=== PATIENT | male | born 1970 | race Caucasian/White ===

== ENCOUNTER 2017-08-30 22:26 | Emergency (ER) | payer MEDICARE, MEDICAID ==
[~2017-08-30] VITALS: Ht 165.1 cm; Wt 110.0 kg
[~2017-08-30 22:26] MED LIST: HYDR-3133 PO; PRED20 PO; Z.0.NO CURRENT MEDS
[2017-08-30 22:28] VITALS: BP 142/81; PULSE 111; RESP 20; TEMP 97.5; O2SAT 99
--- NOTE | 2017-08-31 00:18 | PD ---
HPI Chief Complaint: Fall Time Seen by Provider: 00:10 Travel History International Travel<30 days: No Contact w/Intl Traveler<30days: No Traveled to known affect area: No History of Present Illness HPI 47 y/o male presents after he states he got tripped up on a brick and fell back and injured his back. He is having pain to his low back. He states he also hit his head but did not lose consciousness. He states his head is also hurting some. Quality pain is sharp. Severity is moderate. Pain is worse with movement. He denies other modifying factors. He denies any other concurrent complaints. PFSH Past Medical History Bipolar Disorder: Yes Headaches: Yes Medical other: Yes (SCIZOPHRENIC) Migraines: Yes ?: Not Social History Alcohol Use: No Tobacco Use: No Substance Use: No Allergies-Medications (Allergen,Severity, Reaction): Coded Allergies: No Known Allergies (Verified Allergy, Mild, 10/17/07) Reported Meds & Prescriptions Reported Meds & Active Scripts Active Atarax (Hydroxyzine HCl) 25 Mg Tab 25 Mg PO Q8HPRN Deltasone (Prednisone) 20 Mg Tab 20 Mg PO BID Reported No Current Meds (Miscellaneous Medication) Misc Review of Systems Except as stated in HPI: all other systems reviewed are Neg Physical Exam Narrative General: 47 y/o patient in no apparent distress Skin: warm and dry Eyes: pupils equal NECK: no pain with palpation, nexus criteria negative Cardiovascular: Regular rate and rhythm Respiratory: normal respiratory effort noted, clear to auscultation bilaterally Abdomen: soft, nontender, nondistended Back: No step-offs, midline spine ttp to upper lumbar spine Extremities: no Pain with palpation of main joints Neuro: awake, clear speech, sensation and motor grossly intact Data Data Last Documented VS Vital Signs Date Time Temp Pulse Resp B/P (MAP) Pulse Ox O2 Delivery O2 Flow Rate FiO2 08/30/17 22:28 97.5 111 20 142/81 (101) 99 Room Air Orders Orders Ct Brain W/O Iv Contrast(Rout) (08/31/17 00:13) Ct Lumb Spine W/O Contrast (08/31/17 00:13) Acetamin-Hydrocod 325-5 Mg (Maybee 5-325 (08/31/17 02:00) Ed Discharge Order (08/31/17 01:52) [facility] Medical Decision Making Medical Screen Exam Complete: Yes Emergency Medical Condition: Yes Medical Record Reviewed: Yes (pmh confirmed) Interpretation(s) ct brain no acute ct lumbar spine ?questionable s1 screw fracture, no pain over this site-given copy can follow up outpatient Differential Diagnosis fracture, ich, strain... Narrative Course will check ct imaging and reeval ed workup with possible s1 screw fracture, steady gait, Patient denies any new complaints and states that they are feeling better. Patient happy with care, all questions answered. Patient knows that follow up is incumbent on them and to return to the emergency room immediately if new or worsening symptoms develop. Patient given strict return precautions, vitals reviewed and are normal , agrees to further workup as an outpatient. Diagnosis Primary Impression: Back pain Qualified Codes: M54.5 - Low back pain Additional Impressions: Head injury Qualified Codes: S09.90XA - Unspecified injury of head, initial encounter Fall Qualified Codes: W19.XXXA - Unspecified fall, initial encounter Patient Instructions: General Instructions Additional Instructions: tylenol as needed, follow with your surgeon tommorrow, return as needed Med/Other Pt SpecificInfo: No Change to Meds Disposition: 01 DISCHARGE HOME Condition: Stable Lila Adams MD Aug 31, 2017 00:18
--- NOTE | 2017-08-31 01:20 | RADRPT ---
EXAM DATE/TIME: 08/31/2017 00:54 [facility] COMPARISON: No previous studies available for comparison. INDICATIONS : Trauma, fall. Struck the back of his head. RADIATION DOSE: 56.35 CTDIvol (mGy) MEDICAL HISTORY : None SURGICAL HISTORY : None. ENCOUNTER: Initial ACUITY: 1 day PAIN SCALE: 5/10 LOCATION: cranial TECHNIQUE: Multiple contiguous axial images were obtained of the head. Using automated exposure control and adj ustment of the mA and/or kV according to patient size, radiation dose was kept as low as reasonably a chievable to obtain optimal diagnostic quality images. DICOM format image data is available electro nically for review and comparison. FINDINGS: CEREBRUM: The ventricles are normal. No evidence of midline shift, mass lesion, hemorrhage or acute infarction . No extra-axial fluid collections are seen. POSTERIOR FOSSA: The cerebellum and brainstem are intact. The 4th ventricle is midline. The cerebellopontine angle i s unremarkable. EXTRACRANIAL: There is mild mucoperiosteal thickening within the left maxillary antrum. SKULL: The calvaria is intact. No evidence of skull fracture. CONCLUSION: No acute intracranial abnormality is identified. Flaquito Byrd MD on August 31, 2017 at 1:17 Board Certified Radiologist. This report was verified electronically.
--- NOTE | 2017-08-31 01:27 | RADRPT ---
EXAM DATE/TIME: 08/31/2017 00:56 [facility] COMPARISON: No previous studies available for comparison. INDICATIONS : Trauma, fall. Lower back pain. RADIATION DOSE: 63.33 CTDIvol (mGy) ; Patient body habitus MEDICAL HISTORY : None SURGICAL HISTORY : Fusion, lumbar. ENCOUNTER: Initial ACUITY: 1 day PAIN SCALE: 5/10 LOCATION: Lumbar spine. TECHNIQUE: Volumetric scanning of the lumbar spine was performed. Multiplanar reconstructions in the sagittal, coronal and oblique axial planes were performed. Using automated exposure control and adjustment of the mA and/or kV according to patient size, radiation dose was kept as low as reasonably achievable t o obtain optimal diagnostic quality images. DICOM format image data is available electronically for review and comparison. FINDINGS: VERTEBRAE: Normal vertebral body height. No fracture or compression deformity is identified. There has been a pr ior posterior spinal fixation with partial fusion at L4-L5 and L5-S1. Bilateral pedicular screws are present. There is a questionable abnormality of the left sacral screw questionable for fracture. Ther e are no findings to indicate loosening. ALIGNMENT: No anterolisthesis or retrolisthesis. T12-L1: No disc herniation, canal stenosis, or neural foraminal stenosis. L1-L2: No disc herniation, canal stenosis, or neural foraminal stenosis. L2-L3: There is a diffuse disc bulge. Canal may be mildly narrowed. No significant neural foraminal stenosis appreciated. L3-L4: There is a moderate diffuse disc bulge with facet and ligamentum flavum hypertrophy mildly narrowing the spinal canal and causing mild bilateral neural foraminal stenosis. L4-L5: There is posterior spinal hardware and there has been prior left hemilaminectomy. Posterior osteophyt ic ridging is present. No definite canal stenosis is seen. L5-S1: Posterior hardware is present with signs of a left hemilaminectomy. Posterior osteophytic ridging is present. Canals partially obscured by artifact. Remaining visualized findings demonstrate no acute abnormality. CONCLUSION: 1. Questionable fracture of the left S1 screw. It would be helpful to correlate with prior imaging st udies to assess for change. 2. Degenerative disc disease, as above, with mild spinal canal stenosis at L3-L4. Flaquito Byrd MD on August 31, 2017 at 1:19 Board Certified Radiologist. This report was verified electronically.
[2017-08-31] MEDS ORDERED: ACETAMINOPHEN/HYDROcodone 325 MG/5 MG TAB PO ONE (02:00)
[2017-08-31 03:00] VITALS: RESP 16
[2017-08-31 06:39] VITALS: BP 135/75
== END 2017-08-31 06:46 | disposition home or self-care (01) ==
LOC: NEPE 22:26
DX: M54.5 Low back pain (principal); S09.90XA Unspecified injury of head, initial encounter; Z86.59 Personal history of other mental and behavioral disorders; Z86.69 Personal history of other diseases of the nervous system and sense organs; W01.0XXA Fall on same level from slipping, tripping and stumbling without subsequent striking against object, initial encounter
CPT/HCPCS: 70450; 72131; 99284

== ENCOUNTER 2017-10-03 09:24 | Emergency (ER) | payer MEDICARE, MEDICAID ==
[~2017-10-03] VITALS: Ht 167.6 cm; Wt 115.0 kg
[~2017-10-03 09:24] MED LIST changes: +ABIL20TA5 PO; +BACT800T5 PO; +DIVA250ER PO; +FENO145T2 PO; +FLUO20CA12 PO; +GABA800T PO; +POLY17S PO; +SYMB160A INH; +TAMS5CAP PO
[2017-10-03 09:25] VITALS: BP 146/78; PULSE 88; RESP 18; TEMP 97.9; O2SAT 95
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
--- NOTE | 2017-10-03 09:55 | RADRPT ---
EXAM DATE/TIME: 10/03/2017 09:42 [facility] COMPARISON: CT ABDOMEN & PELVIS W/O CONTRAST, December 14, 2016, 20:36. INDICATIONS : Fell today. Low back pain. MEDICAL HISTORY : None. SURGICAL HISTORY : back surgery 2000 ENCOUNTER: Initial ACUITY: 1 day PAIN SCORE: 5/10 LOCATION: Bilateral lumbar spine FINDINGS: Both pedicle screws are fractured at S1. Pedicle screws at L4 and L5 are intact. Alignment anatomic . CONCLUSION: Pedicle screw is fractured at S1. Anatomic alignment. I have no prior studies for comparison that s how the screws adequately.. Trenton Romano MD FACR on October 03, 2017 at 9:51 Board Certified Radiologist. This report was verified electronically.
[2017-10-03] MEDS ORDERED: ORPHENADRINE INJ 60 MG/2 ML AMP IM ONE (10:15)
[2017-10-03] MEDS ORDERED: KETOROLAC TROMETHAMINE 60 MG/2 ML (IM) VIAL IM ONE (10:15)
== END 2017-10-03 10:37 | disposition home or self-care (01) ==
LOC: NEPK 09:24 → MERGE 09:24 → NEPK 10:37
DX: T84.498A Other mechanical complication of other internal orthopedic devices, implants and grafts, initial encounter (principal); M54.5 Low back pain; J45.909 Unspecified asthma, uncomplicated; J44.9 Chronic obstructive pulmonary disease, unspecified; I10 Essential (primary) hypertension; W01.0XXA Fall on same level from slipping, tripping and stumbling without subsequent striking against object, initial encounter
CPT/HCPCS: 72100; 96372; 99283; J1885; J2360

== ENCOUNTER 2017-10-05 16:57 | Inpatient (IN) | payer MEDICARE, MEDICAID ==
[~2017-10-05] VITALS: Ht 167.6 cm; Wt 109.5 kg
[~2017-10-05 16:57] MED LIST changes: -BACT800T5 PO
[2017-10-05 16:58] VITALS: BP 144/82; PULSE 109; RESP 20; TEMP 98.3; O2SAT 95
[2017-10-05 19:17] VITALS: BP 139/85; PULSE 97; RESP 20; TEMP 98.6; O2SAT 98
[2017-10-05] MEDS ORDERED: DIAZ10TA PO (19:27)
[2017-10-05] MEDS ORDERED: LACT10SO PO (19:27)
[2017-10-05] MEDS ORDERED: SYMB80AE INH (19:27)
[2017-10-05] MEDS ORDERED: SPIRCAP INH (19:27)
[2017-10-05] MEDS ORDERED: ALBUAER3 INH (19:27)
[2017-10-05] MEDS ORDERED: ZOLP10TA3 PO (19:27)
[2017-10-05] MEDS ORDERED: ABIL20TA5 PO (19:27)
[2017-10-05] MEDS ORDERED: DIAZ2TAB PO (19:27)
[2017-10-05] MEDS ORDERED: HALO0.5T PO (19:27)
[2017-10-05] MEDS ORDERED: SODIUM CHLORIDE 0.9% FLUSH 10 ML FLUSH IV FLUSH PRN ×2 (19:30→22:45)
[2017-10-05] MEDS ORDERED: MORPHINE SULFATE 2 MG/ML INJ IV PUSH ONE (19:45)
[2017-10-05] MEDS ORDERED: SODIUM CHLOR 0.9% 1000 ML INJ 1,000 ML IV ONE (19:45)
[2017-10-05] MEDS ORDERED: ONDANSETRON HCL 4 MG/2 ML VIAL IV PUSH ONE (19:45)
[2017-10-05 20:16] LABS: BASOPHIL # 0.1 TH/MM3 (0-0.2); BASOPHIL % 0.4 % (0.0-2.0); EOSINOPHIL # 0.1 TH/MM3 (0-0.4); EOSINOPHIL % 0.8 % (0.0-4.0); HEMATOCRIT 37.3 % (39.0-51.0); HEMOGLOBIN 12.2 GM/DL (13.0-17.0); LYMPH % 11.7 % (9.0-44.0); MEAN CELL VOLUME 88.8 FL (80.0-100.0); MEAN CORPUSCULAR HEMOGLOBIN 29.1 PG (27.0-34.0); MEAN CORPUSCULAR HGB CONC 32.8 % (32.0-36.0); MEAN PLATELET VOLUME 8.7 FL (7.0-11.0); MONO % 6.9 % (0.0-8.0); MONOCYTE # 1.2 TH/MM3 (0-0.9); NEUT % 80.2 % (16.0-70.0); PLATELET COUNT 209 TH/MM3 (150-450); RED CELL DISTRIBUTION WIDTH 13.5 % (11.6-17.2); WHITE BLOOD COUNT 17.5 TH/MM3 (4.0-11.0)
[2017-10-05 20:22] LABS: ALT (GPT) 41 U/L (12-78)
--- NOTE | 2017-10-05 20:22 | RADRPT ---
EXAM DATE/TIME: 10/05/2017 20:05 [facility] COMPARISON: No previous studies available for comparison. INDICATIONS : Patient complains of cough, shortness of breath, and chest pain. MEDICAL HISTORY : Hypertension. SURGICAL HISTORY : Fusion, lumbar. ENCOUNTER: Initial ACUITY: 2 days PAIN SCORE: 2/10 LOCATION: chest FINDINGS: A single view of the chest demonstrates minimal basilar atelectasis. No effusion. No pneumothorax. CONCLUSION: 1. Minimal basilar atelectasis. Jose Alejandro Ramos MD on October 05, 2017 at 20:20 Board Certified Radiologist. This report was verified electronically.
[2017-10-05 20:24] LABS: ALKALINE PHOSPHATASE 34 U/L (45-117); TOTAL BILIRUBIN ADULT 0.4 MG/DL (0.2-1.0); TOTAL PROTEIN 7.5 GM/DL (6.4-8.2)
[2017-10-05 20:35] LABS: ALBUMIN 3.1 GM/DL (3.4-5.0); AST (GOT) 79 U/L (15-37); BICARBONATE 28.9 MEQ/L (21.0-32.0); BLOOD UREA NITROGEN 15 MG/DL (7-18); CALCIUM 8.7 MG/DL (8.5-10.1); CHLORIDE 104 MEQ/L (98-107); GLOMERULAR FILTRATION RATE 81 ML/MIN (>89); GLUCOSE,RANDOM 79 MG/DL (74-106); LIPASE 16 U/L (73-393); SODIUM (NA) 137 MEQ/L (136-145)
--- NOTE | 2017-10-05 20:49 | PD ---
HPI Chief Complaint: GI Complaint Time Seen by Provider: 19:22 Travel History International Travel<30 days: No Contact w/Intl Traveler<30days: No Traveled to known affect area: No History of Present Illness HPI 47-year-old male that presents to the ED for evaluation of right upper quadrant abdominal pain, nausea vomiting and diarrhea. Per patient she's had this for about 2 days now. Per patient he comes from assisted living facility he tells me that there is been multiple sick contacts at the facility. Per patient a lot of patients in that area had been having cough and congestion as well as nausea vomiting and diarrhea. Per patient she's had some bloody diarrhea. Per patient she's been having vomit as well. Per patient most of the pain is in the right upper quadrant. He denies any surgeries to his abdomen recently. He states that he still has a gallbladder. Of note patient is somewhat of a poor historian as he does appear to have some underlying psychiatric illness but he does appear to answer questions of properly at this time. He denies any fevers chills or sweats. He has not seen anybody for this. As far as he knows nobody has been diagnosed with any disease at this time at the facility where he stays. He denies any chest pain or shortness of breath or time with cough. He has been coughing. He states that his pain currently 7 out of 10. He is not taking anything for his pain. He does have allergies to different fruits. PFSH Past Medical History Arthritis: No Asthma: Yes Blood Disorders: No Bipolar Disorder: Yes Anxiety: Yes Depression: Yes (bipolar) Heart Rhythm Problems: No Cancer: No Cardiovascular Problems: Yes High Cholesterol: Yes Chemotherapy: No Chest Pain: Yes Congestive Heart Failure: No COPD: Yes Cerebrovascular Accident: Yes (TIA) Developmental Delay: Yes Diabetes: No Diminished Hearing: No Endocrine: No Gastrointestinal Disorders: No Genitourinary: Yes (RETENTION) Headaches: No Hypertension: Yes Immune Disorder: No Implanted Vascular Access Dvce: Yes Insomnia: Yes Kidney Stones: No Musculoskeletal: Yes Neurologic: Yes Psychiatric: Yes (anxiety, depression, schizophrenia) Reproductive: No Respiratory: Yes (ASTHMA) Integumentary: Yes (DERMATITIS, PRURITIS) Immunizations Current: Yes Migraines: Yes Radiation Therapy: No Renal Failure: No Schizophrenia: Yes Seizures: Yes Sleep Apnea: No Tetanus Vaccination: Unknown Influenza Vaccination: Yes Past Surgical History Abdominal Surgery: No AICD: No Arteriovenous Shunt: No Body Medical Devices: BACK RODS AND SCREWS Cardiac Surgery: No Ear Surgery: No Endocrine Surgery: No Eye Surgery: No Genitourinary Surgery: No Gynecologic Surgery: No Insulin Pump: No Joint Replacement: No Oral Surgery: No Pacemaker: No Thoracic Surgery: No Other Surgery: Yes Social History Alcohol Use: No Tobacco Use: No Substance Use: No Allergies-Medications (Allergen,Severity, Reaction): Coded Allergies: melon (Verified Allergy, Unknown, 10/05/17) Per MAR sent by facility. tomato (Verified Allergy, Unknown, 10/05/17) Per MAR sent by facility. watermelon (Verified Allergy, Unknown, 10/05/17) Per MAR sent by facility. Reported Meds & Prescriptions Reported Meds & Active Scripts Active Flomax (Tamsulosin HCl) 0.4 Mg Cap 0.4 Mg PO BID Polyethylene Glycol 3350 Powder (Polyethylene Glycol) 17 Gm Pow 17 Gm PO DAILY Fluoxetine (Fluoxetine HCl) 20 Mg Capsule 20 Mg PO TID Fenofibrate 145 Mg Tab 145 Mg PO DAILY Depakote ER (Divalproex Sodium) 250 Mg Floridalma 750 Mg PO 3 BID Symbicort Inh (Budesonide/Formoterol Fumarate) 160-4.5 Mcg/Act Aero 2 Puff INH BID Abilify (Aripiprazole) 20 Mg Tab 20 Mg PO DAILY 15 Days Gabapentin 800 Mg Tab 800 Mg PO BID (0800,1600) Reported Proair Hfa 8.5 GM Inh (Albuterol Sulfate) 90 Mcg/Act Aer 2 Puff INH Q4-6H PRN 108 mcg/actuation Zolpidem (Zolpidem Tartrate) 10 Mg Tab 10 Mg PO HS PRN Symbicort Inh (Budesonide/Formoterol Fumarate) 80-4.5 Mcg/Act Aero 2 Puff INH Q12HR Spiriva Handihaler (Tiotropium Inh) 18 Mcg Cap 18 Mcg INH DAILY 1 capsule = 18 mcg Lactulose Liq (Lactulose) 10 Gm/15 Ml Soln 30 Ml PO Q6H Haloperidol 0.5 Mg Tab 0.5 Mg PO TID Diazepam 10 Mg Tab 10 Mg PO HS Diazepam 2 Mg Tab 2 Mg PO BID Abilify (Aripiprazole) 20 Mg Tab 20 Mg PO HS Review of Systems Except as stated in HPI: all other systems reviewed are Neg Physical Exam Narrative GENERAL: SKIN: Warm and dry. HEAD: Atraumatic. Normocephalic. EYES: Pupils equal and round. No scleral icterus. No injection or drainage. ENT: No nasal bleeding or discharge. Mucous membranes pink and moist. Tongue is midline. No uvula deviation. NECK: Trachea midline. No JVD. CARDIOVASCULAR: Regular rate and rhythm. No murmurs, S3, S4. RESPIRATORY: No accessory muscle use. Clear to auscultation. Breath sounds equal bilaterally. GASTROINTESTINAL: Abdomen soft, patient has a possible right upper quadrant pain with deep touch, nondistended. Hepatic and splenic margins not palpable. MUSCULOSKELETAL: Extremities without clubbing, cyanosis, or edema. No obvious deformities. Full range of motion of the upper and lower extremities bilaterally. Pupils pulses bilaterally. NEUROLOGICAL: Awake and alert. No obvious cranial nerve deficits. Motor grossly within normal limits. Five out of 5 muscle strength in the arms and legs. Normal speech. PSYCHIATRIC: Appropriate mood and affect; insight and judgment normal. Data Data Last Documented VS Vital Signs Date Time Temp Pulse Resp B/P (MAP) Pulse Ox O2 Delivery O2 Flow Rate FiO2 10/05/17 19:49 20 10/05/17 19:17 98.6 97 139/85 (103) 98 Room Air Orders Orders Complete Blood Count With Diff (10/05/17 19:23) Comprehensive Metabolic Panel (10/05/17 19:23) Lipase (10/05/17 19:23) Lactic Acid (10/05/17 19:23) Iv Access Insert/Monitor (10/05/17 19:23) Sodium Chloride 0.9% Flush (Ns Flush) (10/05/17 19:30) Influenzae A/B Antigen (10/05/17 19:32) Chest, Single Ap (10/05/17 ) Us Abdomen Gallbladder (10/05/17 ) Morphine Inj (Morphine Inj) (10/05/17 19:45) Ondansetron Inj (Zofran Inj) (10/05/17 19:45) Sodium Chlor 0.9% 1000 Ml Inj (Ns 1000 M (10/05/17 19:45) C Diff Toxin Pcr (10/05/17 19:32) Ct Abd/Pel W Iv Contrast(Rout) (10/05/17 ) Iohexol 350 Inj (Omnipaque 350 Inj) (10/05/17 21:23) Potassium, Serum (K) (10/05/17 21:41) Ampicillin-Sulbactam Inj (Unasyn Inj) (10/05/17 22:30) Admit Order (Ed Use Only) (10/05/17 22:37) Labs Laboratory Tests Test 10/05/17 19:30 10/05/17 22:10 White Blood Count 17.5 TH/MM3 Red Blood Count 4.20 MIL/MM3 Hemoglobin 12.2 GM/DL Hematocrit 37.3 % Mean Corpuscular Volume 88.8 FL Mean Corpuscular Hemoglobin 29.1 PG Mean Corpuscular Hemoglobin Concent 32.8 % Red Cell Distribution Width 13.5 % Platelet Count 209 TH/MM3 Mean Platelet Volume 8.7 FL Neutrophils (%) (Auto) 80.2 % Lymphocytes (%) (Auto) 11.7 % Monocytes (%) (Auto) 6.9 % Eosinophils (%) (Auto) 0.8 % Basophils (%) (Auto) 0.4 % Neutrophils # (Auto) 14.0 TH/MM3 Lymphocytes # (Auto) 2.0 TH/MM3 Monocytes # (Auto) 1.2 TH/MM3 Eosinophils # (Auto) 0.1 TH/MM3 Basophils # (Auto) 0.1 TH/MM3 CBC Comment DIFF FINAL Differential Comment Blood Urea Nitrogen 15 MG/DL Creatinine 1.00 MG/DL Random Glucose 79 MG/DL Total Protein 7.5 GM/DL Albumin 3.1 GM/DL Calcium Level 8.7 MG/DL Alkaline Phosphatase 34 U/L Aspartate Amino Transf (AST/SGOT) 79 U/L Alanine Aminotransferase (ALT/SGPT) 41 U/L Total Bilirubin 0.4 MG/DL Sodium Level 137 MEQ/L Potassium Level 5.9 MEQ/L Chloride Level 104 MEQ/L Carbon Dioxide Level 28.9 MEQ/L Anion Gap 4 MEQ/L Estimat Glomerular Filtration Rate 81 ML/MIN Lactic Acid Level 1.0 mmol/L Lipase 16 U/L [facility] Medical Decision Making Medical Screen Exam Complete: Yes Emergency Medical Condition: Yes Medical Record Reviewed: Yes Interpretation(s) Last Impressions Gall Bladder Ultrasound 10/05/17 0000 Signed Impressions: Service Date/Time: Thursday, October 05, 2017 21:34 - CONCLUSION: 1. Multiple gallstones without biliary ductal dilatation. Mild fatty liver. Jose Alejandro Ramos MD Chest X-Ray 10/05/17 0000 Signed Impressions: Service Date/Time: Thursday, October 05, 2017 20:05 - CONCLUSION: 1. Minimal basilar atelectasis. Jose Alejandro Ramos MD Abdomen/Pelvis CT 10/05/17 0000 Signed Impressions: Service Date/Time: Thursday, October 05, 2017 21:04 - CONCLUSION: 1. No acute findings within the abdomen and pelvis. 2. Patchy airspace disease in the right lung base most characteristic of bronchopneumonia or aspiration. Previous fusion lower lumbar spine across the lumbosacral junction. Jose Alejandro Ramos MD CBC & BMP Diagram 10/05/17 19:30 Total Protein 7.5, Albumin 3.1 L, Calcium Level 8.7, Alkaline Phosphatase 34 L, Aspartate Amino Transf (AST/SGOT) 79 H, Alanine Aminotransferase (ALT/SGPT) 41, Total Bilirubin 0.4 lactic acid WNL flu negative Differential Diagnosis Colitis versus C. difficile versus diarrhea versus gallbladder disease versus acute abdomen versus pancreatitis Narrative Course 47-year-old male that presents to the ED for evaluation of abdominal pain, nausea vomiting and diarrhea. Patient was properly examined and was found to have signs and symptoms of unclear etiology will likely abdominal in nature and possibly infectious. At this time labs and imaging recommended. I asked the patient she clearly was a sample of the stool to check for C. difficile as he comes from a facility. He agrees with this plan. Patient was given IV pain medications and antiemetics. Fluids given. Labs and imaging showed leukocytosis and what appears to be bronchopneumonia versus aspiration pneumonia. Case was discussed in my attending who recommends admission for further evaluation and treatment. Patient was told this and agrees with plan. Case was discussed with Dr. Tyler who agrees with admission. Sepsis Criteria SIRS Criteria (2 or more): Heart rate over 90, WBC > 39917, < 4000 or > 10% bands Sepsis Criteria (SIRS+source): Infect source susp/known Criteria Outcome: Meets sepsis criteria Diagnosis Primary Impression: Pneumonia Qualified Codes: J69.0 - Pneumonitis due to inhalation of food and vomit Additional Impression: Sepsis Qualified Codes: A41.9 - Sepsis, unspecified organism Admitting Information Admitting Physician Requests: Admit Kamran Soto Oct 05, 2017 20:49
[2017-10-05] MEDS ORDERED: IOHEXOL 350 MG/ML 10 ML VIAL (for RAD DIAG) IVCONTRAST ONE (21:23)
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
--- NOTE | 2017-10-05 22:18 | RADRPT ---
EXAM DATE/TIME: 10/05/2017 21:34 [facility] COMPARISON: No previous studies available for comparison. INDICATIONS : Right upper quadrant pain. MEDICAL HISTORY : Hypercholesterolemia. Chronic obstructive pulmonary disease. Glasses. Seizures. Transient ischemic attack. Chest pain. Asthma. Bipolar disorder. Depression. Anxiety. Claustrophobia. SURGICAL HISTORY : Back surgery. [place] filter. ENCOUNTER: Initial ACUITY: 1 day PAIN SCORE: 5/10 LOCATION: Right upper quadrant MEASUREMENTS: LIVER: 16.0 cm length COMMON DUCT: 5 mm RIGHT KIDNEY: 11.7 x 4.3 x 5.9 cm FINDINGS: Multiple gallstones in the gallbladder largest measuring about 6 mm in diameter. No delayed ductal di latation or pericholecystic fluid. Normal flow direction portal vein. Mild fatty liver. Right kidney unremarkable. CONCLUSION: 1. Multiple gallstones without biliary ductal dilatation. Mild fatty liver. Jose Alejandro Ramos MD on October 05, 2017 at 22:14 Board Certified Radiologist. This report was verified electronically.
[2017-10-05] MEDS ORDERED: AMPICILLIN-SULBACTAM INJ 3 GM in SODIUM CHLORIDE 0.9% INJ 100 ML IV ONE (22:30)
[2017-10-05] MEDS ORDERED: LACTULOSE SYRUP 20 GM/30 ML CUP PO PRN (22:45)
[2017-10-05] MEDS ORDERED: MORPHINE SULFATE 2 MG/ML INJ IV PUSH PRN (22:45)
[2017-10-05] MEDS ORDERED: ONDANSETRON HCL 4 MG/2 ML VIAL IVP PRN (22:45)
[2017-10-05] MEDS ORDERED: ACETAMINOPHEN/HYDROcodone 325 MG/5 MG TAB PO PRN (22:45)
[2017-10-05] MEDS: DIAZEPAM 10 MG TAB PO SCH (22:45)
[2017-10-05] MEDS ORDERED: BISACODYL 10 MG SUPP RECTAL PRN (22:45)
[2017-10-05] MEDS ORDERED: Vancomycin Consult Pharmacy 1 EA OTHER SCH (22:45)
[2017-10-05] MEDS ORDERED: SENNOSIDES 8.6 MG TAB PO PRN (22:45)
[2017-10-05] MEDS ORDERED: MAGNESIUM HYDROXIDE SUSP 30 ML CUP PO PRN (22:45)
[2017-10-05] MEDS ORDERED: ZOLPIDEM TARTRATE 10 MG TAB PO PRN (22:45)
--- NOTE | 2017-10-05 22:47 | HHI.HP ---
[facility] Service [facility] Primary Care Physician Hossein Mesa M.D. Admission Diagnosis acute pneumonia, possible aspiration, sepsis Diagnoses: (1) Sepsis Diagnosis: Principal (2) PNA (pneumonia) Diagnosis: Principal (3) Gastroenteritis Diagnosis: Principal (4) Hyperkalemia Diagnosis: Principal Travel History International Travel<30 Days: No Contact w/Intl Traveler <30 Da: No Traveled to Known Affected Are: No History of Present Illness This is a 47-year-old male with PMH of Anxiety, Depression, Bipolar Disorder, COPD, Developmental Delay, h/o TIA and Asthma who presented to the ER with complaints of abdominal pain x2 days. Pt is poor historian, but able to relay that pain is mostly in RUQ, sharp, severe, 8/10, non-radiating. Reports associated nausea, vomiting and diarrhea. No fever, chills or sick contacts. On arrival, BP 144/82, HR 109, O2 sat 95% on RA, Afebrile. WBC 17.5. K+ 5.9. Lactic Acid normal. CXR with minimal basilar atelectasis. Gallbladder US with multiple gallstones, no biliary ductal dilatation. CT Abd/Pelvis w/ no acute abdominal findings, noted to have patchy airspace disease RLL, likely bronchopneumonia or aspiration. S/p Unasyn in ER. Review of Systems Except as stated in HPI: all other systems reviewed are Neg ROS: 14 point review of systems otherwise negative. Past Family Social History Past Medical History PMH: Anxiety, Depression, Bipolar Disorder, COPD, Developmental Delay, h/o TIA and Asthma Past Surgical History PAST SURGICAL HISTORY: Back Surgery Allergies: Coded Allergies: melon (Verified Allergy, Unknown, 10/05/17) Per MAR sent by facility. tomato (Verified Allergy, Unknown, 10/05/17) Per MAR sent by facility. watermelon (Verified Allergy, Unknown, 10/05/17) Per MAR sent by facility. Family History PAST FAMILY HISTORY: Reviewed. No h/o DM or CAD Social History PAST SOCIAL HISTORY: Negative for alcohol, tobacco or drugs. Physical Exam Vital Signs Vital Signs Date Time Temp Pulse Resp B/P (MAP) Pulse Ox O2 Delivery O2 Flow Rate FiO2 10/05/17 19:49 20 10/05/17 19:17 98.6 97 20 139/85 (103) 98 Room Air 10/05/17 16:58 98.3 109 20 144/82 (102) 95 Room Air Physical Exam PE: GENERAL: Middle-aged male in no acute distress. HEENT: PERRLA, EOMI. No scleral icterus or conjunctival pallor. No lid lag or facial droop. CARDIOVASCULAR: Regular rate and rhythm. No obvious murmurs to auscultation. No chest tenderness to palpation. RESPIRATORY: No obvious rhonchi or wheezing. Clear to auscultation. Breath sounds equal bilaterally. GASTROINTESTINAL: Abdomen soft, mild tenderness to palpation RUQ, nondistended. BS normal. MUSCULOSKELETAL: Extremities without clubbing, cyanosis, or edema. No obvious deformities. NEUROLOGICAL: Awake, alert and oriented x4. No focal neurologic deficits. Moving both upper and lower extremities spontaneously. Laboratory Laboratory Tests Test 10/05/17 19:30 10/05/17 22:10 White Blood Count 17.5 Red Blood Count 4.20 Hemoglobin 12.2 Hematocrit 37.3 Mean Corpuscular Volume 88.8 Mean Corpuscular Hemoglobin 29.1 Mean Corpuscular Hemoglobin Concent 32.8 Red Cell Distribution Width 13.5 Platelet Count 209 Mean Platelet Volume 8.7 Neutrophils (%) (Auto) 80.2 Lymphocytes (%) (Auto) 11.7 Monocytes (%) (Auto) 6.9 Eosinophils (%) (Auto) 0.8 Basophils (%) (Auto) 0.4 Neutrophils # (Auto) 14.0 Lymphocytes # (Auto) 2.0 Monocytes # (Auto) 1.2 Eosinophils # (Auto) 0.1 Basophils # (Auto) 0.1 CBC Comment DIFF FINAL Differential Comment Blood Urea Nitrogen 15 Creatinine 1.00 Random Glucose 79 Total Protein 7.5 Albumin 3.1 Calcium Level 8.7 Alkaline Phosphatase 34 Aspartate Amino Transf (AST/SGOT) 79 Alanine Aminotransferase (ALT/SGPT) 41 Total Bilirubin 0.4 Sodium Level 137 Potassium Level 5.9 Chloride Level 104 Carbon Dioxide Level 28.9 Anion Gap 4 Estimat Glomerular Filtration Rate 81 Lactic Acid Level 1.0 Lipase 16 Date/Time Source Procedure Growth Status 1/5/18 19:25 Nasal Washing Influenza Types A,B Antigen ([facility]) - Final NEGATIVE FOR FLU A AND B ANTIGEN.... Complete Result Diagram: 10/05/17192910/05/171929 [place] VTE Risk Assessment [place] VTE Risk Assessment: No/Low Risk (score <= 1) [place]rini Risk Assessment Model Point Value = 1 Point Value = 2 Point Value = 3 Point Value = 5 Age 41-60 Minor surgery BMI > 25 kg/m2 Swollen legs Varicose veins or History of unexplained or recurrent spontaneous Oral contraceptives or hormone replacement Sepsis (< 1 month) Serious lung disease, including pneumonia (< 1 month) Abnormal pulmonary function Acute myocardial infarction Congestive heart failure (< 1 month) History of inflammatory bowel disease Medical patient at bed rest Age 61-74 Arthroscopic surgery Major open surgery (> 45 min) Laparoscopic surgery (> 45 min) Malignancy Confined to bed (> 72 hours) Immobilizing plaster cast Central venous access Age >= 75 History of VTE Family history of VTE Factor V Leiden Prothrombin [id number] Lupus anticoagulant Anticardiolipin antibodies Elevated serum homocysteine Heparin-induced thrombocytopenia Other congenital or acquired thrombophilia Stroke (< 1 month) Elective arthroplasty Hip, pelvis, or leg fracture Acute spinal cord injury (< 1 month) Prophylaxis Regimen Total Risk Factor Score Risk Level Prophylaxis Regimen 0-1 Low Early ambulation 2 Moderate Order ONE of the following: *Sequential Compression Device (SCD) *Heparin 5000 units SQ BID 3-4 Higher Order ONE of the following medications: *Heparin 5000 units SQ TID *Enoxaparin/Lovenox 40 mg SQ daily (WT < 150 kg, CrCl > 30 mL/min) *Enoxaparin/Lovenox 30 mg SQ daily (WT < 150 kg, CrCl > 10-29 mL/min) *Enoxaparin/Lovenox 30 mg SQ BID (WT < 150 kg, CrCl > 30 mL/min) AND/OR *Sequential Compression Device (SCD) 5 or more Highest Order ONE of the following medications: *Heparin 5000 units SQ TID (Preferred with Epidurals) *Enoxaparin/Lovenox 40 mg SQ daily (WT < 150 kg, CrCl > 30 mL/min) *Enoxaparin/Lovenox 30 mg SQ daily (WT < 150 kg, CrCl > 10-29 mL/min) *Enoxaparin/Lovenox 30 mg SQ BID (WT < 150 kg, CrCl > 30 mL/min) AND *Sequential Compression Device (SCD) Assessment and Plan Problem List: (1) Sepsis ICD Code: A41.9 - Sepsis, unspecified organism (2) PNA (pneumonia) ICD Code: J18.9 - Pneumonia, unspecified organism (3) Gastroenteritis ICD Code: K52.9 - Noninfective gastroenteritis and colitis, unspecified (4) Hyperkalemia ICD Code: E87.5 - Hyperkalemia Assessment and Plan A/P: 1. Sepsis: HR 109, WBC 17.5, Source-PNA, s/p Unasyn in ER, will continue w/ IV Abx, check Sputum Cultures. IVF for hydration, repeat labs in am 2. PNA: CT Abd/Pelvis w/ RLL patchy airspace disease likely bronchopneumonia or aspiration, images reviewed by me. S/p IV Abx in ER, will continue w/ IV Abx. DuoNeb prn as needed. 3. Gastroenteritis: Reports RUQ pain in addition to nausea/vomiting/diarrhea. Gallbladder US w/ no acute findings, images reviewed by me. Check C Diff. Analgesics/antiemetics as needed. 4. Hyperkalemia: K+ 5.9, hemolysis noted. Repeat labs to re-evaluate. 5. DVT Prophylaxis: SCD/Teds. 6. Social work for d/c planning as needed. 7. Records/labs/images reviewed by me, case discussed at length w/ ER physician. Physician Certification 2 Midnight Certification Type: Admission for Inpatient Services Order for Inpatient Services The services are ordered in accordance with Medicare regulations or non- Medicare payer requirements, as applicable. In the case of services not specified as inpatient-only, they are appropriately provided as inpatient services in accordance with the 2-midnight benchmark. Estimated LOS (days): 2 days is the estimated time the patient will need to remain in the hospital, assuming treatment plan goals are met and no additional complications. Post-Hospital Plan: Not yet determined Nkechi Tyler MD Oct 05, 2017 22:47
[2017-10-05] MEDS: SODIUM CHLOR 0.9% 1000 ML INJ 1,000 ML IV SCH (23:31)
[2017-10-06] VITALS (12 sets, daily range): BP systolic 100–157; BP diastolic 59–98; PULSE 16–111; RESP 16–21; TEMP 97.9–100.2; O2SAT 90–95
[2017-10-06] MEDS ORDERED: VANCOMYCIN INJ 2,500 MG in SODIUM CHLORID 0.9% 500 ML INJ 500 ML IV ONE (01:00)
[2017-10-06] MEDS: ACETAMINOPHEN 325 MG TAB PO PRN ×2 (05:23→16:57)
[2017-10-06] MEDS: FENOFIBRATE 145 MG TAB PO SCH (09:05)
[2017-10-06] MEDS: GABAPENTIN 400 MG CAP PO SCH ×2 (09:05→21:52)
[2017-10-06] MEDS: DOCUSATE SODIUM 50 MG/SENNA 8.6 MG TAB PO SCH ×2 (09:05→21:52)
[2017-10-06] MEDS: DIVALPROEX SODIUM E.R. 250 MG TAB PO SCH ×2 (09:05→21:53)
[2017-10-06] MEDS: TAMSULOSIN HCL 0.4 MG CAP PO SCH ×2 (09:05→21:52)
[2017-10-06] MEDS: FLUoxetine HCL 20 MG CAP PO SCH ×3 (09:05→16:57)
[2017-10-06] MEDS: DIAZEPAM 2 MG TAB PO SCH ×2 (09:06→22:03)
[2017-10-06] MEDS: SODIUM CHLORIDE 0.9% FLUSH 10 ML FLUSH IV FLUSH SCH ×2 (09:06→21:51)
[2017-10-06] MEDS: CEFEPIME INJ 1,000 MG in SODIUM CHLORIDE 0.9% INJ 100 ML IV SCH ×2 (09:06→21:51)
[2017-10-06] MEDS: HALOPERIDOL 0.5 MG TAB PO SCH ×3 (09:06→16:57)
[2017-10-06] MEDS: BUDESONIDE-FORMOTEROL 160/4.5 MCG INHALER INH SCH ×2 (09:18→21:52)
[2017-10-06] MEDS: TIOTROPIUM BROMIDE 18 MCG INH INH SCH (09:18)
[2017-10-06] MEDS: SODIUM CHLOR 0.9% 1000 ML INJ 1,000 ML IV SCH ×2 (09:30→18:00)
[2017-10-06 10:56] LABS: AUTOMATED NEUTROPHIL # 8.2 TH/MM3 (1.8-7.7); BASOPHIL % 0.1 % (0.0-2.0); EOSINOPHIL # 0.2 TH/MM3 (0-0.4); EOSINOPHIL % 1.6 % (0.0-4.0); HEMATOCRIT 33.9 % (39.0-51.0); LYMPH % 11.6 % (9.0-44.0); LYMPHOCYTE # 1.2 TH/MM3 (1.0-4.8); MEAN CELL VOLUME 89.9 FL (80.0-100.0); MEAN CORPUSCULAR HEMOGLOBIN 29.2 PG (27.0-34.0); MEAN CORPUSCULAR HGB CONC 32.5 % (32.0-36.0); MEAN PLATELET VOLUME 8.2 FL (7.0-11.0); MONO % 8.3 % (0.0-8.0); MONOCYTE # 0.9 TH/MM3 (0-0.9); NEUT % 78.4 % (16.0-70.0); PLATELET COUNT 182 TH/MM3 (150-450); RED BLOOD COUNT 3.77 MIL/MM3 (4.50-5.90); RED CELL DISTRIBUTION WIDTH 13.9 % (11.6-17.2); WHITE BLOOD COUNT 10.4 TH/MM3 (4.0-11.0)
[2017-10-06 11:16] LABS: ALBUMIN 2.8 GM/DL (3.4-5.0); AST (GOT) 31 U/L (15-37); BICARBONATE 29.7 MEQ/L (21.0-32.0); BLOOD UREA NITROGEN 16 MG/DL (7-18); CHLORIDE 106 MEQ/L (98-107); CREATININE 0.87 MG/DL (0.60-1.30); GLOMERULAR FILTRATION RATE 95 ML/MIN (>89); GLUCOSE,RANDOM 76 MG/DL (74-106); SODIUM (NA) 143 MEQ/L (136-145)
[2017-10-06 11:19] LABS: ALKALINE PHOSPHATASE 30 U/L (45-117); ALT (GPT) 28 U/L (12-78); TOTAL BILIRUBIN ADULT 0.3 MG/DL (0.2-1.0); TOTAL PROTEIN 6.4 GM/DL (6.4-8.2)
--- NOTE | 2017-10-06 11:28 | HHI.PR ---
Subjective Remarks Follow-up sepsis/community acquired bacterial pneumonia 10/06/17-patient seen and examined, Tmax 100.2 at 4 PM however currently afebrile. Still complains of shortness of breath. Objective Vitals Vital Signs Date Time Temp Pulse Resp B/P (MAP) Pulse Ox O2 Delivery O2 Flow Rate FiO2 10/06/17 08:01 98.2 105 21 123/59 (80) 95 10/06/17 04:00 100.2 103 16 144/98 (113) 93 10/06/17 00:41 108 10/06/17 00:00 98.8 109 20 143/63 (89) 90 10/05/17 19:49 20 10/05/17 19:17 98.6 97 20 139/85 (103) 98 Room Air 10/05/17 16:58 98.3 109 20 144/82 (102) 95 Room Air Result Diagram: 10/06/17 0953 10/06/17 0953 Imaging Last Impressions Gall Bladder Ultrasound 10/05/17 0000 Signed Impressions: Service Date/Time: Thursday, October 05, 2017 21:34 - CONCLUSION: 1. Multiple gallstones without biliary ductal dilatation. Mild fatty liver. Jose Alejandro Ramos MD Chest X-Ray 10/05/17 0000 Signed Impressions: Service Date/Time: Thursday, October 05, 2017 20:05 - CONCLUSION: 1. Minimal basilar atelectasis. Jose Alejandro Ramos MD Abdomen/Pelvis CT 10/05/17 0000 Signed Impressions: Service Date/Time: Thursday, October 05, 2017 21:04 - CONCLUSION: 1. No acute findings within the abdomen and pelvis. 2. Patchy airspace disease in the right lung base most characteristic of bronchopneumonia or aspiration. Previous fusion lower lumbar spine across the lumbosacral junction. Jose Alejandro Ramos MD Objective Remarks GENERAL: NAD SKIN: Warm and dry. HEAD: Normocephalic. EYES: No scleral icterus. No injection or drainage. NECK: Supple, trachea midline. No JVD or lymphadenopathy. CARDIOVASCULAR: Regular rate and rhythm without murmurs, gallops, or rubs. RESPIRATORY: Breath sounds decreased bilaterally. No accessory muscle use. GASTROINTESTINAL: Abdomen soft, non-tender, nondistended. MUSCULOSKELETAL: No cyanosis, or edema. BACK: Nontender without obvious deformity. No CVA tenderness. A/P Problem List: (1) Sepsis ICD Code: A41.9 - Sepsis, unspecified organism Status: Resolved (2) PNA (pneumonia) ICD Code: J18.9 - Pneumonia, unspecified organism (3) Gastroenteritis ICD Code: K52.9 - Noninfective gastroenteritis and colitis, unspecified (4) Hyperkalemia ICD Code: E87.5 - Hyperkalemia Assessment and Plan 47 year-old man with 1. Sepsis: status post Unasyn/ankle my seen in ER, and currently on cefepime pending culture reports 2. PNA: CT Abd/Pelvis w/ RLL patchy airspace disease likely bronchopneumonia or aspiration. Currently on cefepime IV. DuoNeb prn as needed. 3. Gastroenteritis: Improving Gallbladder US w/ no acute findings. Analgesics /antiemetics as needed. 4. Hyperkalemia: Resolved 5. Cholelithiasis: Outpatient follow-up will general surgery 6. Other chronic medical conditions: Continue outpatient medications Casimiro Fay MD Oct 06, 2017 11:27
[2017-10-06] MEDS: VANCOMYCIN 1,500 MG/NS 500 ML IV SCH ×2 (16:58)
[2017-10-06] MEDS: DIAZEPAM 10 MG TAB PO SCH (21:53)
[2017-10-07] VITALS (8 sets, daily range): BP systolic 108–157; BP diastolic 56–69; PULSE 78–118; RESP 19–22; TEMP 98.3–99.5; O2SAT 91–94
[2017-10-07] MEDS: SODIUM CHLOR 0.9% 1000 ML INJ 1,000 ML IV SCH ×2 (03:13→13:56)
[2017-10-07] MEDS: VANCOMYCIN 1,500 MG/NS 500 ML IV SCH ×4 (05:05→18:10)
--- NOTE | 2017-10-07 06:25 | HHI.PR ---
Addendum to Inpatient Note Addendum Reason: Additional Documentation Additional Information Late entry, received call from bedside RN regarding fall. Patient seen and examined, he states that his right foot gave out on him and his legs buckled, falling to the floor. Fall team came and initiated protocol. Denies hitting his head. Denies any LOC. Vital signs stable post fall. Patient with yellow gown on , status changed to high risk of falls. Encouraged to use call schulte for assistance. Continue to monitor. Jackeline Beckham Oct 07, 2017 06:25
[2017-10-07 07:25] LABS: AUTOMATED NEUTROPHIL # 4.2 TH/MM3 (1.8-7.7); BASOPHIL % 0.2 % (0.0-2.0); EOSINOPHIL # 0.1 TH/MM3 (0-0.4); EOSINOPHIL % 1.6 % (0.0-4.0); HEMATOCRIT 30.5 % (39.0-51.0); HEMOGLOBIN 10.1 GM/DL (13.0-17.0); LYMPH % 21.3 % (9.0-44.0); LYMPHOCYTE # 1.3 TH/MM3 (1.0-4.8); MEAN CORPUSCULAR HEMOGLOBIN 29.7 PG (27.0-34.0); MEAN PLATELET VOLUME 8.3 FL (7.0-11.0); MONO % 9.8 % (0.0-8.0); MONOCYTE # 0.6 TH/MM3 (0-0.9); NEUT % 67.1 % (16.0-70.0); PLATELET COUNT 170 TH/MM3 (150-450); RED BLOOD COUNT 3.39 MIL/MM3 (4.50-5.90); RED CELL DISTRIBUTION WIDTH 13.5 % (11.6-17.2); WHITE BLOOD COUNT 6.3 TH/MM3 (4.0-11.0)
[2017-10-07 07:43] LABS: BICARBONATE 34.3 MEQ/L (21.0-32.0); CALCIUM 7.7 MG/DL (8.5-10.1); CREATININE 0.78 MG/DL (0.60-1.30)
[2017-10-07] MEDS: CEFEPIME INJ 1,000 MG in SODIUM CHLORIDE 0.9% INJ 100 ML IV SCH ×2 (08:52→20:18)
[2017-10-07] MEDS: HALOPERIDOL 0.5 MG TAB PO SCH ×3 (08:57→18:10)
[2017-10-07] MEDS: TAMSULOSIN HCL 0.4 MG CAP PO SCH ×2 (08:58→20:21)
[2017-10-07] MEDS: FENOFIBRATE 145 MG TAB PO SCH (08:58)
[2017-10-07] MEDS: DIVALPROEX SODIUM E.R. 250 MG TAB PO SCH ×2 (08:58→20:20)
[2017-10-07] MEDS: SODIUM CHLORIDE 0.9% FLUSH 10 ML FLUSH IV FLUSH SCH ×2 (08:58→20:21)
[2017-10-07] MEDS: GABAPENTIN 400 MG CAP PO SCH ×2 (08:58→20:20)
[2017-10-07] MEDS: DOCUSATE SODIUM 50 MG/SENNA 8.6 MG TAB PO SCH ×2 (08:58→20:21)
[2017-10-07] MEDS: FLUoxetine HCL 20 MG CAP PO SCH ×3 (08:58→18:10)
[2017-10-07] MEDS: DIAZEPAM 2 MG TAB PO SCH ×2 (08:58→20:21)
[2017-10-07] MEDS: BUDESONIDE-FORMOTEROL 160/4.5 MCG INHALER INH SCH ×2 (09:00→20:21)
[2017-10-07] MEDS: TIOTROPIUM BROMIDE 18 MCG INH INH SCH (09:00)
--- NOTE | 2017-10-07 11:39 | HHI.PR ---
Subjective Remarks Follow-up sepsis/community acquired bacterial pneumonia 10/06/17-patient seen and examined, Tmax 100.2 at 4 PM however currently afebrile. Still complains of shortness of breath. 10/07/17-patient seen and examined, currently afebrile. Overnight patient had one episode of fall. Stable this morning with improvement of respiratory symptoms.. No diarrhea Objective Vitals Vital Signs Date Time Temp Pulse Resp B/P (MAP) Pulse Ox O2 Delivery O2 Flow Rate FiO2 10/07/17 08:01 99.5 95 22 123/56 (78) 91 10/07/17 08:00 Nasal Cannula 5.00 Humidified 10/07/17 04:00 98.9 98 19 157/69 (98) 91 10/07/17 00:16 94 10/06/17 23:39 97.9 98 19 157/69 (98) 91 10/06/17 22:39 97.9 97 17 144/67 (92) 91 10/06/17 20:30 Nasal Cannula 5.00 Humidified 10/06/17 20:05 87 10/06/17 20:00 97.9 85 19 129/84 (99) 95 10/06/17 16:14 Nasal Cannula 5.00 10/06/17 16:01 99.6 101 21 100/60 (73) 93 10/06/17 12:01 99.7 103 20 123/60 (81) 93 10/06/17 12:00 Nasal Cannula 5.00 Humidified 10/06/17 12:00 111 I/O 10/06/17 10/06/17 10/06/17 10/07/17 10/07/17 10/07/17 07:00 15:00 23:00 07:00 15:00 23:00 Intake Total 597 ml 240 ml Output Total 2000 ml Balance 597 ml -1760 ml Intake Oral 480 ml 240 ml IV Total 117 ml Output Urine Total 2000 ml # Voids 3 3 # Bowel Movements 0 Result Diagram: 10/07/1761910/07/17619 Imaging Last Impressions Gall Bladder Ultrasound 10/05/17 0000 Signed Impressions: Service Date/Time: Thursday, October 05, 2017 21:34 - CONCLUSION: 1. Multiple gallstones without biliary ductal dilatation. Mild fatty liver. Jose Alejandro Ramos MD Chest X-Ray 10/05/17 0000 Signed Impressions: Service Date/Time: Thursday, October 05, 2017 20:05 - CONCLUSION: 1. Minimal basilar atelectasis. Jose Alejandro Ramos MD Abdomen/Pelvis CT 10/05/17 0000 Signed Impressions: Service Date/Time: Thursday, October 05, 2017 21:04 - CONCLUSION: 1. No acute findings within the abdomen and pelvis. 2. Patchy airspace disease in the right lung base most characteristic of bronchopneumonia or aspiration. Previous fusion lower lumbar spine across the lumbosacral junction. Jose Alejandro Ramos MD Objective Remarks GENERAL: NAD SKIN: Warm and dry. HEAD: Normocephalic. EYES: No scleral icterus. No injection or drainage. NECK: Supple, trachea midline. No JVD or lymphadenopathy. CARDIOVASCULAR: Regular rate and rhythm without murmurs, gallops, or rubs. RESPIRATORY: Breath sounds decreased bilaterally. No accessory muscle use. GASTROINTESTINAL: Abdomen soft, non-tender, nondistended. MUSCULOSKELETAL: No cyanosis, or edema. BACK: Nontender without obvious deformity. No CVA tenderness. A/P Problem List: (1) Sepsis ICD Code: A41.9 - Sepsis, unspecified organism Status: Resolved (2) PNA (pneumonia) ICD Code: J18.9 - Pneumonia, unspecified organism (3) Gastroenteritis ICD Code: K52.9 - Noninfective gastroenteritis and colitis, unspecified (4) Hyperkalemia ICD Code: E87.5 - Hyperkalemia Assessment and Plan 47 year-old man with 1. Sepsis: Resolved and currently on cefepime pending culture reports 2. PNA: CT Abd/Pelvis w/ RLL patchy airspace disease likely bronchopneumonia or aspiration. Currently on cefepime IV. DuoNeb prn as needed. 3. Gastroenteritis: Improved and Gallbladder US w/ no acute findings. Analgesics/antiemetics as needed. DC C. difficile PCR 4. Hyperkalemia: Resolved 5. Cholelithiasis: Outpatient follow-up will general surgery 6. Other chronic medical conditions: Continue outpatient medications 7. Fall: PT consult to treat. Fall precautions Discharge Planning Likely discharge 10/08/17 Casimiro Fay MD Oct 07, 2017 11:39
[2017-10-07] MEDS ORDERED: PHARMACY ORDERED LAB ONE ×2 (17:45→19:00)
[2017-10-07] MEDS: DIAZEPAM 10 MG TAB PO SCH (20:21)
[2017-10-07] MEDS: VANCOMYCIN INJ 2,000 MG in SODIUM CHLORID 0.9% 500 ML INJ 500 ML IV SCH (23:00)
[2017-10-08] VITALS (13 sets, daily range): BP systolic 105–136; BP diastolic 55–73; PULSE 63–88; RESP 20–23; TEMP 97.5–100.3; O2SAT 91–99
[2017-10-08] MEDS: VANCOMYCIN INJ 1,750 MG in SODIUM CHLORID 0.9% 500 ML INJ 500 ML IV SCH ×3 (01:06→18:00)
[2017-10-08] MEDS: SODIUM CHLOR 0.9% 1000 ML INJ 1,000 ML IV SCH ×2 (01:11→21:42)
[2017-10-08] MEDS: BUDESONIDE-FORMOTEROL 160/4.5 MCG INHALER INH SCH ×2 (09:00→21:42)
[2017-10-08] MEDS: CEFEPIME INJ 1,000 MG in SODIUM CHLORIDE 0.9% INJ 100 ML IV SCH ×2 (09:00→21:42)
[2017-10-08] MEDS: TIOTROPIUM BROMIDE 18 MCG INH INH SCH (09:00)
[2017-10-08] MEDS: TAMSULOSIN HCL 0.4 MG CAP PO SCH ×2 (09:00→21:41)
[2017-10-08] MEDS: SODIUM CHLORIDE 0.9% FLUSH 10 ML FLUSH IV FLUSH SCH ×2 (09:00→21:41)
[2017-10-08] MEDS: DIAZEPAM 2 MG TAB PO SCH (09:00)
[2017-10-08] MEDS: FLUoxetine HCL 20 MG CAP PO SCH ×3 (09:00→18:00)
[2017-10-08] MEDS: GABAPENTIN 400 MG CAP PO SCH ×2 (09:00→21:41)
[2017-10-08] MEDS: DIVALPROEX SODIUM E.R. 250 MG TAB PO SCH ×2 (09:00→21:41)
[2017-10-08] MEDS: DOCUSATE SODIUM 50 MG/SENNA 8.6 MG TAB PO SCH ×2 (09:00→21:41)
[2017-10-08] MEDS: HALOPERIDOL 0.5 MG TAB PO SCH ×2 (09:00→13:00)
[2017-10-08] MEDS: FENOFIBRATE 145 MG TAB PO SCH (09:00)
[2017-10-08] MEDS ORDERED: DIAZ2 PO (09:35)
[2017-10-08] MEDS ORDERED: AMBI10TA PO (09:35)
[2017-10-08] MEDS ORDERED: AZIT500T2 PO (09:35)
[2017-10-08] MEDS ORDERED: DIAZ10 PO (09:35)
--- NOTE | 2017-10-08 09:38 | HHI.PR ---
Subjective Remarks Follow-up sepsis/community acquired bacterial pneumonia 10/06/17-patient seen and examined, Tmax 100.2 at 4 PM however currently afebrile. Still complains of shortness of breath. 10/07/17-patient seen and examined, currently afebrile. Overnight patient had one episode of fall. Stable this morning with improvement of respiratory symptoms.. No diarrhea 10/08/17-patient seen and examined, Patient had episode of oxygen desaturation overnight for which a simple mask was placed Objective Vitals Vital Signs Date Time Temp Pulse Resp B/P (MAP) Pulse Ox O2 Delivery O2 Flow Rate FiO2 10/08/17 08:02 99.2 82 20 105/55 (72) 94 10/08/17 04:00 100.3 83 22 119/63 (81) 96 10/08/17 04:00 Simple Mask 6.00 10/08/17 03:44 84 10/08/17 02:00 98.6 88 22 136/58 (84) 95 10/08/17 00:23 93 Simple Mask 6.00 10/08/17 00:00 Simple Mask 6.00 10/07/17 23:40 118 10/07/17 20:00 80 10/07/17 20:00 Nasal Cannula 5.00 Humidified 10/07/17 20:00 98.3 78 20 108/64 (79) 93 10/07/17 16:01 98.6 89 21 149/68 (95) 92 10/07/17 15:32 92 Nasal Cannula 5.00 10/07/17 12:01 98.9 83 21 125/68 (87) 94 I/O 10/07/17 10/07/17 10/07/17 10/08/17 10/08/17 10/08/17 06:59 14:59 22:59 06:59 14:59 22:59 Intake Total 240 ml 930 ml Output Total 2000 ml 200 ml Balance -1760 ml 930 ml -200 ml Intake Oral 240 ml 380 ml IV Total 550 ml Output Urine Total 2000 ml 200 ml # Voids 3 1 # Bowel Movements 0 1 Result Diagram: 10/07/17 0620 10/07/17 0620 Imaging Last Impressions Gall Bladder Ultrasound 10/05/17 0000 Signed Impressions: Service Date/Time: Thursday, October 05, 2017 21:34 - CONCLUSION: 1. Multiple gallstones without biliary ductal dilatation. Mild fatty liver. Jose Alejandro Ramos MD Chest X-Ray 10/05/17 0000 Signed Impressions: Service Date/Time: Thursday, October 05, 2017 20:05 - CONCLUSION: 1. Minimal basilar atelectasis. Jose Alejandro Ramos MD Abdomen/Pelvis CT 10/05/17 0000 Signed Impressions: Service Date/Time: Thursday, October 05, 2017 21:04 - CONCLUSION: 1. No acute findings within the abdomen and pelvis. 2. Patchy airspace disease in the right lung base most characteristic of bronchopneumonia or aspiration. Previous fusion lower lumbar spine across the lumbosacral junction. Jose Alejandro Ramos MD Objective Remarks GENERAL: NAD SKIN: Warm and dry. HEAD: Normocephalic. EYES: No scleral icterus. No injection or drainage. NECK: Supple, trachea midline. No JVD or lymphadenopathy. CARDIOVASCULAR: Regular rate and rhythm without murmurs, gallops, or rubs. RESPIRATORY: Breath sounds decreased bilaterally. No accessory muscle use. GASTROINTESTINAL: Abdomen soft, non-tender, nondistended. MUSCULOSKELETAL: No cyanosis, or edema. BACK: Nontender without obvious deformity. No CVA tenderness. Procedures none A/P Problem List: (1) Sepsis ICD Code: A41.9 - Sepsis, unspecified organism Status: Resolved (2) Gastroenteritis ICD Code: K52.9 - Noninfective gastroenteritis and colitis, unspecified (3) Hyperkalemia ICD Code: E87.5 - Hyperkalemia Assessment and Plan 47 year-old man with 1. Sepsis: Resolved a 2. PNA: CT Abd/Pelvis w/ RLL patchy airspace disease likely bronchopneumonia or aspiration. Currently on cefepime IV. DuoNeb prn as needed. Discharged home on azithromycin by mouth. 2/2 episode of acute respiratory failure with hypoxemia, walk test will be performed prior to discharge 3. Gastroenteritis: Improved and Gallbladder US w/ no acute findings. Analgesics/antiemetics as needed. 4. Hyperkalemia: Resolved 5. Cholelithiasis: Outpatient follow-up will general surgery 6. Other chronic medical conditions: Continue outpatient medications 7. Fall: PT consult to treat. Fall precautions Discharge Planning Likely discharge 10/08/17 Casimiro Fay MD Oct 08, 2017 09:38
--- NOTE | 2017-10-08 09:41 | HHI.DS ---
Discharge Summary Admission Date Oct 05, 2017 at 22:39 Discharge Date: Oct 08, 2017 Admitting Diagnosis acute pneumonia, possible aspiration, sepsis (1) Sepsis ICD Code: A41.9 - Sepsis, unspecified organism Status: Resolved (2) Gastroenteritis ICD Code: K52.9 - Noninfective gastroenteritis and colitis, unspecified (3) Hyperkalemia ICD Code: E87.5 - Hyperkalemia Procedures none Brief History - From Admission This is a 47-year-old male with PMH of Anxiety, Depression, Bipolar Disorder, COPD, Developmental Delay, h/o TIA and Asthma who presented to the ER with complaints of abdominal pain x2 days. Pt is poor historian, but able to relay that pain is mostly in RUQ, sharp, severe, 8/10, non-radiating. Reports associated nausea, vomiting and diarrhea. No fever, chills or sick contacts. On arrival, BP 144/82, HR 109, O2 sat 95% on RA, Afebrile. WBC 17.5. K+ 5.9. Lactic Acid normal. CXR with minimal basilar atelectasis. Gallbladder US with multiple gallstones, no biliary ductal dilatation. CT Abd/Pelvis w/ no acute abdominal findings, noted to have patchy airspace disease RLL, likely bronchopneumonia or aspiration. S/p Unasyn in ER. CBC/BMP: 10/07/17 0620 10/07/17 0620 Significant Findings Laboratory Tests Test 10/05/17 19:30 10/05/17 22:10 10/06/17 09:53 10/07/17 06:20 White Blood Count 17.5 TH/MM3 (4.0-11.0) Red Blood Count 4.20 MIL/MM3 (4.50-5.90) 3.77 MIL/MM3 (4.50-5.90) 3.39 MIL/MM3 (4.50-5.90) Hemoglobin 12.2 GM/DL (13.0-17.0) 11.0 GM/DL (13.0-17.0) 10.1 GM/DL (13.0-17.0) Hematocrit 37.3 % (39.0-51.0) 33.9 % (39.0-51.0) 30.5 % (39.0-51.0) Neutrophils (%) (Auto) 80.2 % (16.0-70.0) 78.4 % (16.0-70.0) Neutrophils # (Auto) 14.0 TH/MM3 (1.8-7.7) 8.2 TH/MM3 (1.8-7.7) Monocytes # (Auto) 1.2 TH/MM3 (0-0.9) Albumin 3.1 GM/DL (3.4-5.0) 2.8 GM/DL (3.4-5.0) Alkaline Phosphatase 34 U/L (45-117) 30 U/L (45-117) Aspartate Amino Transf (AST/SGOT) 79 U/L (15-37) Potassium Level 5.9 MEQ/L (3.5-5.1) Anion Gap 4 MEQ/L (5-15) 3 MEQ/L (5-15) Estimat Glomerular Filtration Rate 81 ML/MIN (>89) Lipase 16 U/L (73-393) Monocytes (%) (Auto) 8.3 % (0.0-8.0) 9.8 % (0.0-8.0) Calcium Level 8.0 MG/DL (8.5-10.1) 7.7 MG/DL (8.5-10.1) Carbon Dioxide Level 34.3 MEQ/L (21.0-32.0) Test 10/07/17 18:00 Imaging Last Impressions Gall Bladder Ultrasound 10/05/17 0000 Signed Impressions: Service Date/Time: Thursday, October 05, 2017 21:34 - CONCLUSION: 1. Multiple gallstones without biliary ductal dilatation. Mild fatty liver. Jose Alejandro Ramos MD Chest X-Ray 10/05/17 0000 Signed Impressions: Service Date/Time: Thursday, October 05, 2017 20:05 - CONCLUSION: 1. Minimal basilar atelectasis. Jose Alejandro Ramos MD Abdomen/Pelvis CT 10/05/17 0000 Signed Impressions: Service Date/Time: Thursday, October 05, 2017 21:04 - CONCLUSION: 1. No acute findings within the abdomen and pelvis. 2. Patchy airspace disease in the right lung base most characteristic of bronchopneumonia or aspiration. Previous fusion lower lumbar spine across the lumbosacral junction. Jose Alejandro Ramos MD PE at Discharge GENERAL: NAD SKIN: Warm and dry. HEAD: Normocephalic. EYES: No scleral icterus. No injection or drainage. NECK: Supple, trachea midline. No JVD or lymphadenopathy. CARDIOVASCULAR: Regular rate and rhythm without murmurs, gallops, or rubs. RESPIRATORY: Breath sounds decreased bilaterally. No accessory muscle use. GASTROINTESTINAL: Abdomen soft, non-tender, nondistended. MUSCULOSKELETAL: No cyanosis, or edema. BACK: Nontender without obvious deformity. No CVA tenderness. Hospital Course Patient admitted secondary to sepsis due to bilateral pneumonia for which he was treated with IV antibiotics. He'll be discharged on by mouth azithromycin 500 daily 5 days. This was performed prior to discharge. Patient was continued on his treatment for other chronic medical conditions. PT was consulted. DVT and GI prophylaxis were provided. Vitals remained stable prior to discharge. Pt Condition on Discharge: Stable Discharge Disposition: ACLF/INTERMEDIATE Discharge Time: > 30 minutes Discharge Instructions DIET: Follow Instructions for: Heart Healthy Diet Activities you can perform: Regular-No Restrictions Follow up Referrals: PCP Follow-up - 2-3 Days New Medications: Azithromycin (Azithromycin) 500 Mg Tab 500 MG PO DAILY for Infection, #5 TAB 0 Refills Diazepam (Valium) 2 Mg Tab 2 MG PO BID for Control Mood Swing, #10 TAB Diazepam (Valium) 10 Mg Tab 10 MG PO HS for Control Mood Swing, #10 TAB Zolpidem (Ambien) 10 Mg Tab 10 MG PO HS PRN for INSOMNIA, #10 TAB Continued Medications: Albuterol 8.5 GM Inh (Proair Hfa 8.5 GM Inh) 90 Mcg/Act Aer 2 PUFF INH Q4-6H PRN for SHORTNESS OF BREATH, #1 INHALER 0 Refills 108 mcg/actuation Aripiprazole (Abilify) 20 Mg Tab 20 MG PO DAILY for Mental Health for 15 Days, TAB 1 Refill Aripiprazole (Abilify) 20 Mg Tab 20 MG PO HS, #30 TAB 0 Refills Budesonide-Formoterol Inh (Symbicort Inh) 160-4.5 Mcg/Act Aero 2 PUFF INH BID for health, #1 BOTTLE 0 Refills Divalproex ER (Depakote ER) 250 Mg [place] 750 MG PO 3 bid for health, #180 TAB 0 Refills Fenofibrate (Fenofibrate) 145 Mg Tab 145 MG PO DAILY for health, #30 TAB 0 Refills Fluoxetine (Fluoxetine) 20 Mg Capsule 20 MG PO TID for health, #90 CAP 0 Refills Gabapentin (Gabapentin) 800 Mg Tab 800 MG PO BID (0800,1600), #60 TAB 0 Refills Haloperidol (Haloperidol) 0.5 Mg Tab 0.5 MG PO TID, TAB 0 Refills Lactulose Liq (Lactulose Liq) 10 Gm/15 Ml Soln 30 ML PO Q6H, ML 0 Refills Miscellaneous (No Current Meds) Misc 0 Refills Polyethylene Glycol 3350 Powder (Polyethylene Glycol 3350 Powder) 17 Gm Pow 17 GM PO DAILY for health, #1 BOX 0 Refills Tamsulosin (Flomax) 0.4 Mg Cap 0.4 MG PO BID for health, #60 CAP 0 Refills Tiotropium Inh (Spiriva Handihaler) 18 Mcg Cap 18 MCG INH DAILY for COPD, #30 CAP 0 Refills 1 capsule = 18 mcg Discontinued Medications: Budesonide-Formoterol Inh (Symbicort Inh) 80-4.5 Mcg/Act Aero 2 PUFF INH Q12HR for Asthma Management, #1 INHALER 0 Refills Diazepam (Diazepam) 2 Mg Tab 2 MG PO BID, TAB 0 Refills Diazepam (Diazepam) 10 Mg Tab 10 MG PO HS, TAB 0 Refills Hydroxyzine Hcl (Atarax) 25 Mg Tab 25 MG PO Q8HPRN, #10 0 Refills Prednisone (Deltasone) 20 Mg Tab 20 MG PO BID, #10 0 Refills Zolpidem (Zolpidem) 10 Mg Tab 10 MG PO HS PRN for INSOMNIA, TAB 0 Refills Casimiro Fay MD Oct 08, 2017 09:41
[2017-10-08] MEDS ORDERED: PHARMACY ORDERED LAB ONE (17:45)
[2017-10-08] MEDS: VANCOMYCIN INJ 2,000 MG in SODIUM CHLORID 0.9% 500 ML INJ 500 ML IV SCH (23:00)
[2017-10-09] VITALS (11 sets, daily range): BP systolic 134–148; BP diastolic 70–82; PULSE 70–88; RESP 20–24; TEMP 97.1–98.7; O2SAT 92–100
[2017-10-09] MEDS: SODIUM CHLOR 0.9% 1000 ML INJ 1,000 ML IV SCH ×2 (06:43→13:38)
[2017-10-09] MEDS: CEFEPIME INJ 1,000 MG in SODIUM CHLORIDE 0.9% INJ 100 ML IV SCH ×2 (09:13→20:39)
[2017-10-09] MEDS: FLUoxetine HCL 20 MG CAP PO SCH ×3 (09:14→17:31)
[2017-10-09] MEDS: TIOTROPIUM BROMIDE 18 MCG INH INH SCH (09:14)
[2017-10-09] MEDS: TAMSULOSIN HCL 0.4 MG CAP PO SCH ×2 (09:14→20:39)
[2017-10-09] MEDS: BUDESONIDE-FORMOTEROL 160/4.5 MCG INHALER INH SCH ×2 (09:14→20:39)
[2017-10-09] MEDS: DIVALPROEX SODIUM E.R. 250 MG TAB PO SCH ×2 (09:15→20:39)
[2017-10-09] MEDS: FENOFIBRATE 145 MG TAB PO SCH (09:15)
[2017-10-09] MEDS: SODIUM CHLORIDE 0.9% FLUSH 10 ML FLUSH IV FLUSH SCH ×2 (09:15→20:39)
[2017-10-09] MEDS: GABAPENTIN 400 MG CAP PO SCH ×2 (09:15→20:39)
[2017-10-09] MEDS: DOCUSATE SODIUM 50 MG/SENNA 8.6 MG TAB PO SCH ×2 (09:15→20:40)
[2017-10-09] MEDS: VANCOMYCIN INJ 2,000 MG in SODIUM CHLORID 0.9% 500 ML INJ 500 ML IV SCH ×2 (10:11→22:09)
--- NOTE | 2017-10-09 11:54 | HHI.PR ---
Subjective Remarks Follow-up sepsis/community acquired bacterial pneumonia 10/06/17-patient seen and examined, Tmax 100.2 at 4 PM however currently afebrile. Still complains of shortness of breath. 10/07/17-patient seen and examined, currently afebrile. Overnight patient had one episode of fall. Stable this morning with improvement of respiratory symptoms.. No diarrhea 10/08/17-patient seen and examined, Patient had episode of oxygen desaturation overnight for which a simple mask was placed 10/09/17-patient seen and examined,Although improved today, patient is still lethargic however he is able to follow command and requiring simple mask oxygen. Discharge was held yesterday Objective Vitals Vital Signs Date Time Temp Pulse Resp B/P (MAP) Pulse Ox O2 Delivery O2 Flow Rate FiO2 10/09/17 08:11 97.6 75 20 148/79 (102) 94 10/09/17 08:00 75 10/09/17 04:23 74 10/09/17 04:00 97.1 72 20 141/76 (97) 98 10/09/17 04:00 Simple Mask 6.00 10/09/17 00:00 Simple Mask 6.00 10/09/17 00:00 98.4 70 20 142/70 (94) 100 10/08/17 23:56 63 10/08/17 21:30 64 10/08/17 20:00 Simple Mask 6.00 10/08/17 20:00 97.9 66 20 127/68 (87) 99 10/08/17 16:17 97.5 77 23 130/73 (92) 91 10/08/17 12:24 98.3 75 20 130/73 (92) 93 10/08/17 12:00 78 I/O 10/08/17 10/08/17 10/08/17 10/09/17 10/09/17 10/09/17 06:59 14:59 22:59 06:59 14:59 22:59 Intake Total 547 ml 1237 ml Output Total 200 ml 1100 ml Balance -200 ml 547 ml 137 ml Intake Oral 120 ml 360 ml IV Total 427 ml 877 ml Output Urine Total 200 ml 1100 ml # Voids 2 1 # Bowel Movements 1 0 0 Result Diagram: 10/07/1761910/07/17619 Objective Remarks GENERAL: NAD and lethargic SKIN: Warm and dry. HEAD: Normocephalic. EYES: No scleral icterus. No injection or drainage. NECK: Supple, trachea midline. No JVD or lymphadenopathy. CARDIOVASCULAR: Regular rate and rhythm without murmurs, gallops, or rubs. RESPIRATORY: Breath sounds decreased bilaterally. No accessory muscle use. GASTROINTESTINAL: Abdomen soft, non-tender, nondistended. MUSCULOSKELETAL: No cyanosis, or edema. BACK: Nontender without obvious deformity. No CVA tenderness. Procedures none A/P Problem List: (1) Sepsis ICD Code: A41.9 - Sepsis, unspecified organism Status: Resolved (2) Gastroenteritis ICD Code: K52.9 - Noninfective gastroenteritis and colitis, unspecified (3) Hyperkalemia ICD Code: E87.5 - Hyperkalemia Assessment and Plan 47 year-old man with 1. Sepsis: Resolved 2. PNA: CT Abd/Pelvis w/ RLL patchy airspace disease likely bronchopneumonia or aspiration. Currently on cefepime IV. DuoNeb prn as needed. Discharged home on azithromycin by mouth. 2/2 episode of acute respiratory failure with hypoxemia, walk test will be performed prior to discharge. Check ABG this AM to r/o CO2 Narcosis 3. Gastroenteritis: Improved and Gallbladder US w/ no acute findings. Analgesics/antiemetics as needed. 4. Hyperkalemia: Resolved 5. Cholelithiasis: Outpatient follow-up will general surgery 6. Other chronic medical conditions: Continue outpatient medications 7. 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
[2017-10-10] VITALS (21 sets, daily range): BP systolic 126–157; BP diastolic 64–85; PULSE 48–70; RESP 20–24; TEMP 97.6–98.7; O2SAT 94–97
[2017-10-10] MEDS: SODIUM CHLOR 0.9% 1000 ML INJ 1,000 ML IV SCH (02:56)
[2017-10-10] MEDS: RESP: ALBUTEROL 2.5 MG/IPRATROPIUM 0.5 MG NEB (PRN) NEB (05:58)
[2017-10-10] MEDS: GABAPENTIN 400 MG CAP PO SCH ×3 (09:00→21:30)
[2017-10-10] MEDS: SODIUM CHLORIDE 0.9% FLUSH 10 ML FLUSH IV FLUSH SCH ×3 (09:00→21:29)
[2017-10-10] MEDS: DOCUSATE SODIUM 50 MG/SENNA 8.6 MG TAB PO SCH ×3 (09:00→21:30)
[2017-10-10] MEDS: CEFEPIME INJ 1,000 MG in SODIUM CHLORIDE 0.9% INJ 100 ML IV SCH ×3 (09:00→21:29)
[2017-10-10] MEDS: FLUoxetine HCL 20 MG CAP PO SCH ×4 (09:00→17:09)
[2017-10-10] MEDS: BUDESONIDE-FORMOTEROL 160/4.5 MCG INHALER INH SCH ×3 (09:00→21:00)
[2017-10-10] MEDS: DIVALPROEX SODIUM E.R. 250 MG TAB PO SCH ×3 (09:00→21:45)
[2017-10-10] MEDS: FENOFIBRATE 145 MG TAB PO SCH ×2 (09:00→09:28)
[2017-10-10] MEDS: TAMSULOSIN HCL 0.4 MG CAP PO SCH ×3 (09:00→21:30)
[2017-10-10] MEDS: TIOTROPIUM BROMIDE 18 MCG INH INH SCH ×2 (09:00→09:29)
[2017-10-10] MEDS ORDERED: PHARMACY ORDERED LAB ONE (09:45)
[2017-10-10] MEDS: VANCOMYCIN INJ 2,000 MG in SODIUM CHLORID 0.9% 500 ML INJ 500 ML IV SCH ×2 (10:20→23:12)
[2017-10-10 10:35] LABS: CREATININE 0.46 MG/DL (0.60-1.30)
--- NOTE | 2017-10-10 10:48 | HHI.PR ---
Subjective Remarks Follow-up sepsis/community acquired bacterial pneumonia 10/06/17-patient seen and examined, Tmax 100.2 at 4 PM however currently afebrile. Still complains of shortness of breath. 10/07/17-patient seen and examined, currently afebrile. Overnight patient had one episode of fall. Stable this morning with improvement of respiratory symptoms.. No diarrhea 10/08/17-patient seen and examined, Patient had episode of oxygen desaturation overnight for which a simple mask was placed 10/09/17-patient seen and examined,Although improved today, patient is still lethargic however he is able to follow command and requiring simple mask oxygen. Discharge was held yesterday 10/10/17-patient seen and examined, Patient with CO2 narcosis requiring BIPAP. Alert and oriented x 2 Objective Vitals Vital Signs Date Time Temp Pulse Resp B/P (MAP) Pulse Ox O2 Delivery O2 Flow Rate FiO2 10/10/17 10:03 95 BiPAP 35 10/10/17 10:00 95 35 10/10/17 08:11 97.6 65 20 144/85 (104) 96 10/10/17 04:18 97 35 10/10/17 04:00 58 10/10/17 04:00 98.7 60 20 128/64 (85) 97 10/10/17 01:30 Bi-Pap 10/10/17 01:20 96 35 10/10/17 00:00 70 10/10/17 00:00 98.4 70 20 157/67 (97) 95 10/09/17 21:26 98 Simple Mask 6.00 10/09/17 20:00 98.7 75 20 139/72 (94) 98 10/09/17 20:00 84 10/09/17 20:00 97 Simple Mask 6.00 10/09/17 16:11 98.2 71 23 144/78 (100) 98 10/09/17 16:00 98 Simple Mask 6.00 10/09/17 15:55 88 10/09/17 12:03 98.1 79 24 134/82 (99) 92 10/09/17 12:00 88 10/09/17 12:00 92 Simple Mask 6.00 I/O 10/09/17 10/09/17 10/09/17 10/10/17 10/10/17 10/10/17 07:00 15:00 23:00 07:00 15:00 23:00 Intake Total 1237 ml 100 ml 1506 ml Output Total 1100 ml Balance 137 ml 100 ml 1506 ml Intake Oral 360 ml 0 ml IV Total 877 ml 100 ml 1506 ml Output Urine Total 1100 ml # Voids 1 1 # Bowel Movements 0 0 Result Diagram: 10/07/17 0620 10/10/17 0815 Imaging Last Impressions Gall Bladder Ultrasound 10/05/17 0000 Signed Impressions: Service Date/Time: Thursday, October 05, 2017 21:34 - CONCLUSION: 1. Multiple gallstones without biliary ductal dilatation. Mild fatty liver. Jose Alejandro Ramos MD Chest X-Ray 10/05/17 0000 Signed Impressions: Service Date/Time: Thursday, October 05, 2017 20:05 - CONCLUSION: 1. Minimal basilar atelectasis. Jose Alejandro Ramos MD Abdomen/Pelvis CT 10/05/17 0000 Signed Impressions: Service Date/Time: Thursday, October 05, 2017 21:04 - CONCLUSION: 1. No acute findings within the abdomen and pelvis. 2. Patchy airspace disease in the right lung base most characteristic of bronchopneumonia or aspiration. Previous fusion lower lumbar spine across the lumbosacral junction. Jose Alejandro Ramos MD Objective Remarks GENERAL: NAD and lethargic SKIN: Warm and dry. HEAD: Normocephalic. EYES: No scleral icterus. No injection or drainage. NECK: Supple, trachea midline. No JVD or lymphadenopathy. CARDIOVASCULAR: Regular rate and rhythm without murmurs, gallops, or rubs. RESPIRATORY: Breath sounds decreased bilaterally. No accessory muscle use. GASTROINTESTINAL: Abdomen soft, non-tender, nondistended. MUSCULOSKELETAL: No cyanosis, or edema. BACK: Nontender without obvious deformity. No CVA tenderness. Procedures none A/P Problem List: (1) Sepsis ICD Code: A41.9 - Sepsis, unspecified organism Status: Resolved (2) Gastroenteritis ICD Code: K52.9 - Noninfective gastroenteritis and colitis, unspecified (3) Hyperkalemia ICD Code: E87.5 - Hyperkalemia (4) Respiratory failure with hypoxia and hypercapnia ICD Code: J96.91 - Respiratory failure, unspecified with hypoxia; J96.92 - Respiratory failure, unspecified with hypercapnia (5) CO2 narcosis ICD Code: R06.89 - Other abnormalities of breathing Assessment and Plan 47 year-old man with 1. Sepsis: Resolved 2. PNA: CT Abd/Pelvis w/ RLL patchy airspace disease likely bronchopneumonia or aspiration. Currently on cefepime IV. DuoNeb prn as needed. Discharged home on azithromycin by mouth. 2/2 episode of acute respiratory failure with hypoxemia, walk test will be performed prior to discharge. 3. Gastroenteritis: Improved and Gallbladder US w/ no acute findings. Analgesics/antiemetics as needed. 4. Hyperkalemia: Resolved 5. Cholelithiasis: Outpatient follow-up will general surgery 6. Other chronic medical conditions: Continue outpatient medications 7. 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 Respiratory failure with hypoxia and hypercapnia CO2 narcosis Start BiPAP DuoNeb scheduled and when necessary Start Solu-Medrol IV Consult pulmonary medicine Transfer patient to ICU Discharge Planning Likely discharge 10/08/17 Casimiro Fay MD Oct 10, 2017 10:48
[2017-10-10] MEDS: methylPREDNISolone SOD SUCC 40 MG/1 ML VIAL IV PUSH SCH ×2 (14:46→21:30)
--- NOTE | 2017-10-10 19:48 | PD.CONS ---
History of Present Illness Consult Requested By Reason for Consult pna Primary Care Physician Diagnoses: History of Present Illness sob, pna resp failure, hypercapnic. feels better with bipap no fevers or chills no hemoptysis. Review of Systems neg except hpi Past Family Social History Allergies: Coded Allergies: No Known Allergies (Verified Allergy, Mild, 10/17/07) melon (Verified Allergy, Unknown, 10/08/17) Per MAR sent by facility. tomato (Verified Allergy, Unknown, 10/08/17) Per MAR sent by facility. watermelon (Verified Allergy, Unknown, 10/08/17) Per MAR sent by facility. Physical Exam Vital Signs Vital Signs Date Time Temp Pulse Resp B/P (MAP) Pulse Ox O2 Delivery O2 Flow Rate FiO2 10/10/17 18:00 62 10/10/17 16:00 97.9 54 24 132/70 (90) 94 10/10/17 16:00 54 10/10/17 15:47 97 35 10/10/17 14:00 56 10/10/17 12:10 95 35 10/10/17 12:00 61 10/10/17 12:00 97.6 55 22 133/69 (90) 96 10/10/17 11:30 95 Bi-Pap 35 10/10/17 11:30 97.6 68 23 150/79 (102) 95 10/10/17 10:03 95 BiPAP 35 10/10/17 10:00 95 35 10/10/17 09:00 Bi-Pap 10/10/17 08:11 97.6 65 20 144/85 (104) 96 10/10/17 08:00 67 10/10/17 08:00 Nasal Cannula 6.00 10/10/17 04:18 97 35 10/10/17 04:00 58 10/10/17 04:00 98.7 60 20 128/64 (85) 97 10/10/17 01:30 Bi-Pap 10/10/17 01:20 96 35 10/10/17 00:00 70 10/10/17 00:00 98.4 70 20 157/67 (97) 95 10/09/17 21:26 98 Simple Mask 6.00 10/09/17 20:00 98.7 75 20 139/72 (94) 98 10/09/17 20:00 84 10/09/17 20:00 97 Simple Mask 6.00 Physical Exam GENERAL: This is a well-nourished, well-developed patient, in no apparent distress. SKIN: No rashes, ecchymoses or lesions. Cool and dry. HEAD: Atraumatic. Normocephalic. No temporal or scalp tenderness. EYES: Pupils equal round and reactive. Extraocular motions intact. No scleral icterus. No injection or drainage. ENT: Nose without bleeding, purulent drainage or septal hematoma. Throat without erythema, tonsillar hypertrophy or exudate. Uvula midline. Airway patent. NECK: Trachea midline. No JVD or lymphadenopathy. Supple, nontender, no meningeal signs. CARDIOVASCULAR: Regular rate and rhythm without murmurs, gallops, or rubs. RESPIRATORY: bilateral crackles, mild exp wheezing GASTROINTESTINAL: Abdomen soft, non-tender, nondistended. No hepato-splenomegaly , or palpable masses. No guarding. MUSCULOSKELETAL: Extremities without clubbing, cyanosis, or edema. No joint tenderness, effusion, or edema noted. No calf tenderness. Negative Homans sign bilaterally. NEUROLOGICAL: Awake and alert. Cranial nerves II through XII intact. Motor and sensory grossly within normal limits. Five out of 5 muscle strength in all muscle groups. Normal speech. Laboratory Laboratory Tests Test 10/10/17 00:35 10/10/17 08:15 10/10/17 09:40 Blood Gas Puncture Site LT RADIAL LT RADIAL Blood Gas Patient Temperature 98.6 98.6 Blood Gas HCO3 34 34 Blood Gas Base Excess 7.7 8.7 Blood Gas Oxygen Saturation 96 95 Arterial Blood pH 7.30 7.37 Arterial Blood Partial Pressure CO2 71 61 Arterial Blood Partial Pressure O2 112 88 Arterial Blood Oxygen Content 13.6 13.5 Arterial Blood Carboxyhemoglobin 1.0 1.2 Arterial Blood Methemoglobin 1.0 0.8 Blood Gas Hemoglobin 9.9 10.0 Oxygen Delivery Device SIMPLE MASK NASAL CANNULA Blood Gas Liter Flow 6 6 Creatinine 0.46 Estimat Glomerular Filtration Rate 198 Vancomycin Level Trough 12.7 Date/Time Source Procedure Growth Status 10/05/17 19:25 Nasal Washing Influenza Types A,B Antigen ([facility]DISON) - Final NEGATIVE FOR FLU A AND B ANTIGEN.... Complete Result Diagram: 10/07/17 0620 10/10/17 0815 Assessment and Plan Assessment and Plan PNA Hypercapnic resp failure Obesity cont current plan agree with steroids not ready for oral prednisone yet cont bipap will likely need outpxt PSG wean off fio2 for o2 sat more than 88%. Quang Hernandez MD Oct 10, 2017 19:48
[2017-10-11] VITALS (19 sets, daily range): BP systolic 109–179; BP diastolic 61–81; PULSE 43–64; RESP 19–26; TEMP 97.1–98.1; O2SAT 90–96
[2017-10-11 01:49] LABS: AUTOMATED NEUTROPHIL # 3.9 TH/MM3 (1.8-7.7); BASOPHIL % 0.1 % (0.0-2.0); EOSINOPHIL % 0.1 % (0.0-4.0); HEMATOCRIT 32.5 % (39.0-51.0); HEMOGLOBIN 10.7 GM/DL (13.0-17.0); LYMPH % 11.5 % (9.0-44.0); LYMPHOCYTE # 0.5 TH/MM3 (1.0-4.8); MEAN CELL VOLUME 88.8 FL (80.0-100.0); MEAN CORPUSCULAR HEMOGLOBIN 29.4 PG (27.0-34.0); MEAN CORPUSCULAR HGB CONC 33.1 % (32.0-36.0); MEAN PLATELET VOLUME 8.2 FL (7.0-11.0); MONO % 2.6 % (0.0-8.0); MONOCYTE # 0.1 TH/MM3 (0-0.9); NEUT % 85.7 % (16.0-70.0); PLATELET COUNT 190 TH/MM3 (150-450); RED BLOOD COUNT 3.65 MIL/MM3 (4.50-5.90); WHITE BLOOD COUNT 4.6 TH/MM3 (4.0-11.0)
[2017-10-11 02:07] LABS: CALCIUM 8.3 MG/DL (8.5-10.1); CREATININE 0.55 MG/DL (0.60-1.30); MAGNESIUM 2.3 MG/DL (1.5-2.5)
[2017-10-11] MEDS: RESP: ALBUTEROL 2.5 MG/IPRATROPIUM 0.5 MG NEB (PRN) NEB ×2 (05:15→10:00)
[2017-10-11] MEDS: methylPREDNISolone SOD SUCC 40 MG/1 ML VIAL IV PUSH SCH ×3 (05:42→22:12)
[2017-10-11] MEDS: ATROPINE SULFATE 1 MG/ML VIAL IV PUSH PRN ×2 (06:59→09:32)
[2017-10-11] MEDS ORDERED: cloNIDine HCL 0.1 MG TAB PO PRN (09:00)
[2017-10-11] MEDS: CEFEPIME INJ 1,000 MG in SODIUM CHLORIDE 0.9% INJ 100 ML IV SCH ×2 (09:34→20:18)
[2017-10-11] MEDS: SODIUM CHLORIDE 0.9% FLUSH 10 ML FLUSH IV FLUSH SCH ×2 (09:35→20:17)
[2017-10-11] MEDS: BUDESONIDE-FORMOTEROL 160/4.5 MCG INHALER INH SCH ×2 (09:35→20:18)
[2017-10-11] MEDS: TIOTROPIUM BROMIDE 18 MCG INH INH SCH (09:35)
[2017-10-11] MEDS: DOCUSATE SODIUM 50 MG/SENNA 8.6 MG TAB PO SCH ×2 (09:39→20:17)
[2017-10-11] MEDS: DIVALPROEX SODIUM E.R. 250 MG TAB PO SCH ×2 (09:40→20:17)
[2017-10-11] MEDS: FLUoxetine HCL 20 MG CAP PO SCH ×3 (09:40→18:15)
[2017-10-11] MEDS: FENOFIBRATE 145 MG TAB PO SCH (09:40)
[2017-10-11] MEDS: TAMSULOSIN HCL 0.4 MG CAP PO SCH ×2 (09:40→20:17)
[2017-10-11] MEDS: GABAPENTIN 400 MG CAP PO SCH ×2 (09:40→20:17)
[2017-10-11] MEDS: VANCOMYCIN INJ 2,000 MG in SODIUM CHLORID 0.9% 500 ML INJ 500 ML IV SCH ×2 (10:16→22:12)
--- NOTE | 2017-10-11 14:22 | HHI.PR ---
Subjective Remarks Follow-up sepsis/community acquired bacterial pneumonia 10/06/17-patient seen and examined, Tmax 100.2 at 4 PM however currently afebrile. Still complains of shortness of breath. 10/07/17-patient seen and examined, currently afebrile. Overnight patient had one episode of fall. Stable this morning with improvement of respiratory symptoms.. No diarrhea 10/08/17-patient seen and examined, Patient had episode of oxygen desaturation overnight for which a simple mask was placed 10/09/17-patient seen and examined,Although improved today, patient is still lethargic however he is able to follow command and requiring simple mask oxygen. Discharge was held yesterday 10/10/17-patient seen and examined, Patient with CO2 narcosis requiring BIPAP. Alert and oriented x 2 10-11-17 PATIENT REMAINS IN ICU-REQUIRING BIPAP ON AND OFF AND ATROPINE FOR HEART RATE DIPPING BELOW 40 WILL CONSULT PSYCHIATRY FOR MEDICATION ADJUSTMENT CONSULT CARDIOLOGY REGARDING BRADYCARDIA DW RN AND PT Objective Vitals Vital Signs Date Time Temp Pulse Resp B/P (MAP) Pulse Ox O2 Delivery O2 Flow Rate FiO2 10/11/17 12:00 54 10/11/17 12:00 97.3 54 24 134/76 (95) 90 10/11/17 10:00 64 10/11/17 09:48 93 Venturi Mask 6.00 50 10/11/17 08:35 95 BiPAP 35 10/11/17 08:33 92 10/11/17 08:00 50 10/11/17 08:00 97.1 50 19 179/81 (113) 92 10/11/17 07:00 97 Bi-Pap 35 10/11/17 06:00 43 10/11/17 05:15 96 BiPAP 35 10/11/17 04:00 44 10/11/17 04:00 97.4 44 20 139/66 (90) 95 10/11/17 03:34 95 Ventilator 10/11/17 03:31 94 35 10/11/17 02:00 52 10/11/17 00:00 45 10/11/17 00:00 97.8 45 25 137/73 (94) 94 10/10/17 23:50 96 BiPAP 35 10/10/17 23:47 94 35 10/10/17 22:00 48 10/10/17 20:00 60 10/10/17 20:00 98.4 60 23 126/74 (91) 94 10/10/17 19:47 95 BiPAP 10/10/17 19:45 95 35 10/10/17 19:00 94 Bi-Pap 35 10/10/17 18:00 62 10/10/17 16:00 97.9 54 24 132/70 (90) 94 10/10/17 16:00 54 10/10/17 15:47 97 35 I/O 10/10/17 10/10/17 10/10/17 10/11/17 10/11/17 10/11/17 07:00 15:00 23:00 07:00 15:00 23:00 Intake Total 1506 ml 1400 ml 100 ml 620 ml 100 ml Output Total 1350 ml 1800 ml Balance 1506 ml 1400 ml -1250 ml -1180 ml 100 ml Intake Oral 0 ml 120 ml IV Total 1506 ml 1400 ml 100 ml 500 ml 100 ml Output Urine Total 1350 ml 1800 ml # Bowel Movements 0 0 Result Diagram: 10/11/17 0143 10/11/17 0143 Other Results Laboratory Tests Test 10/10/17 00:35 10/10/17 08:15 10/10/17 09:40 10/10/17 20:49 Blood Gas Puncture Site LT RADIAL LT RADIAL RT RADIAL Blood Gas Patient Temperature 98.6 98.6 98.6 Blood Gas HCO3 34 mmol/L 34 mmol/L 32 mmol/L Blood Gas Base Excess 7.7 mmol/L 8.7 mmol/L 7.3 mmol/L Blood Gas Oxygen Saturation 96 % 95 % 96 % Arterial Blood pH 7.30 7.37 7.41 Arterial Blood Partial Pressure CO2 71 mmHg 61 mmHg 52 mmHg Arterial Blood Partial Pressure O2 112 mmHg 88 mmHg 94 mmHg Arterial Blood Oxygen Content 13.6 Vol % 13.5 Vol % 13.9 Vol % Arterial Blood Carboxyhemoglobin 1.0 % 1.2 % 1.2 % Arterial Blood Methemoglobin 1.0 % 0.8 % 0.9 % Blood Gas Hemoglobin 9.9 G/DL 10.0 G/DL 10.3 G/DL Oxygen Delivery Device SIMPLE MASK NASAL CANNULA CPAP Blood Gas Liter Flow 6 L/M 6 L/M Creatinine 0.46 MG/DL Estimat Glomerular Filtration Rate 198 ML/MIN Vancomycin Level Trough 12.7 MCG/ML Blood Gas Inspired Oxygen 35 % Test 10/11/17 01:43 White Blood Count 4.6 TH/MM3 Red Blood Count 3.65 MIL/MM3 Hemoglobin 10.7 GM/DL Hematocrit 32.5 % Mean Corpuscular Volume 88.8 FL Mean Corpuscular Hemoglobin 29.4 PG Mean Corpuscular Hemoglobin Concent 33.1 % Red Cell Distribution Width 13.0 % Platelet Count 190 TH/MM3 Mean Platelet Volume 8.2 FL Neutrophils (%) (Auto) 85.7 % Lymphocytes (%) (Auto) 11.5 % Monocytes (%) (Auto) 2.6 % Eosinophils (%) (Auto) 0.1 % Basophils (%) (Auto) 0.1 % Neutrophils # (Auto) 3.9 TH/MM3 Lymphocytes # (Auto) 0.5 TH/MM3 Monocytes # (Auto) 0.1 TH/MM3 Eosinophils # (Auto) 0.0 TH/MM3 Basophils # (Auto) 0.0 TH/MM3 CBC Comment DIFF FINAL Differential Comment Blood Urea Nitrogen 14 MG/DL Creatinine 0.55 MG/DL Random Glucose 109 MG/DL Calcium Level 8.3 MG/DL Magnesium Level 2.3 MG/DL Sodium Level 139 MEQ/L Potassium Level 4.6 MEQ/L Chloride Level 101 MEQ/L Carbon Dioxide Level 31.0 MEQ/L Anion Gap 7 MEQ/L Estimat Glomerular Filtration Rate 161 ML/MIN Imaging Last Impressions Gall Bladder Ultrasound 10/05/17 0000 Signed Impressions: Service Date/Time: Thursday, October 05, 2017 21:34 - CONCLUSION: 1. Multiple gallstones without biliary ductal dilatation. Mild fatty liver. Jose Alejandro Ramos MD Chest X-Ray 10/05/17 Signed Impressions: Service Date/Time: Thursday, October 05, 2017 20:05 - CONCLUSION: 1. Minimal basilar atelectasis. Jose Alejandro Ramos MD Abdomen/Pelvis CT 10/05/17 Signed Impressions: Service Date/Time: Thursday, October 05, 2017 21:04 - CONCLUSION: 1. No acute findings within the abdomen and pelvis. 2. Patchy airspace disease in the right lung base most characteristic of bronchopneumonia or aspiration. Previous fusion lower lumbar spine across the lumbosacral junction. Jose Alejandro Ramos MD Objective Remarks GENERAL: SKIN: Warm and dry. HEAD: Atraumatic. Normocephalic. EYES: Pupils equal and round. No scleral icterus. No injection or drainage. ENT: No nasal bleeding or discharge. Mucous membranes pink and moist. NECK: Trachea midline. No JVD. CARDIOVASCULAR: Regular rate and rhythm. RESPIRATORY: No accessory muscle use. Clear to auscultation. Breath sounds equal bilaterally. GASTROINTESTINAL: Abdomen soft, non-tender, nondistended. Hepatic and splenic margins not palpable. MUSCULOSKELETAL: Extremities without clubbing, cyanosis, or edema. No obvious deformities. NEUROLOGICAL: Awake and alert. No obvious cranial nerve deficits. Motor grossly within normal limits. Five out of 5 muscle strength in the arms and legs. Normal speech. PSYCHIATRIC: Appropriate mood and affect; insight and judgment normal. Procedures none Medications and IVs Current Medications Sodium Chloride (NS Flush) 2 ml UNSCH PRN IV FLUSH FLUSH AFTER USING IV ACCESS Last administered on 10/05/17 19:42; Start 10/05/17 at 19:30; Stop 10/08/17 at 19: 44; Status DC Morphine Sulfate (Morphine Inj) 4 mg ONCE ONCE IV PUSH Last administered on 19:42; Start 10/05/17 at 19:45; Stop 10/05/17 at 19:46; Status DC Ondansetron HCl (Zofran Inj) 4 mg ONCE ONCE IV PUSH Last administered on 19:42; Start 10/05/17 at 19:45; Stop 10/05/17 at 19:46; Status DC Sodium Chloride 1,000 ml @ 999 mls/hr BOLUS ONCE IV Last administered on 19:42; Start 10/05/17 at 19:45; Stop 10/05/17 at 20:45; Status DC Iohexol (Omnipaque 350 Inj) 97 ml STK-MED ONCE IVCONTRAST Last administered on 10/05/17at 21:23; Start 10/05/17 at 21:23; Stop 10/05/17 at 21:24; Status DC Ampicillin Sodium/ Sulbactam Sodium 3 gm/Sodium Chloride 100 ml @ 200 mls/hr ONCE ONCE IV Last administered on 10/05/17at 23:01; Start 10/05/17 at 22:30; Stop 10/05/17 at 23:04; Status DC Pharmacy Profile Note 0 ml @ 0 mls/hr UNSCH OTHER ; Start 10/05/17 at 22:45 Cefepime HCl 1000 mg/Sodium Chloride 100 ml @ 200 mls/hr Q12H IV Last administered on 10/11/17at 09:34; Start 10/06/17 at 09:00 Albuterol/ Ipratropium (Duoneb Neb) 1 ampule Q4HR NEB PRN NEB SOB/WHEEZING Last administered on 10/11/17at 10:00; Start 10/05/17 at 22:45 Sodium Chloride 1,000 ml @ 100 mls/hr Q10H IV Last administered on 10/10/17at 02:56; Start 10/05/17 at 22:43; Status Future Hold Sodium Chloride (NS Flush) 2 ml UNSCH PRN IV FLUSH FLUSH AFTER USING IV ACCESS ; Start 10/05/17 at 22:45 Sodium Chloride (NS Flush) 2 ml BID IV FLUSH Last administered on 10/11/17at 09: 35; Start 10/06/17 at 09:00 Ondansetron HCl (Zofran Inj) 4 mg Q6H PRN IVP NAUSEA OR VOMITING Last administered on 10/06/17at 21:51; Start 10/05/17 at 22:45 Acetaminophen (Tylenol) 650 mg Q6H PRN PO FEVER/PAIN SCALE 1 TO 2 Last administered on 10/06/17at 16:57; Start 10/05/17 at 22:45 Acetaminophen/ Hydrocodone Bitart ([place] 5-325 Mg) 1 tab Q4H PRN PO PAIN SCALE 3 TO 5; Start 10/05/17 at 22:45 Morphine Sulfate (Morphine Inj) 2 mg Q3H PRN IV PUSH Pain 6-10; Start 10/05/17 at 22:45 Senna/Docusate Sodium (Beatriz-Colace) 1 tab BID PO Last administered on at 09:39; Start 10/06/17 at 09:00 Magnesium Hydroxide (Milk Of Magnesia Liq) 30 ml Q12H PRN PO Mild constipation ; Start 10/05/17 at 22:45 Sennosides (Senokot) 17.2 mg Q12H PRN PO Moderate constipation; Start 10/05/17 at 22:45 Bisacodyl (Dulcolax Supp) 10 mg DAILY PRN RECTAL SEVERE CONSITIPATION; Start at 22:45 Lactulose (Lactulose Liq) 30 ml DAILY PRN PO SEVERE CONSITIPATION; Start at 22:45 Aripiprazole (Abilify) 20 mg DAILY PO Last administered on 10/11/17at 09:00; Start 10/06/17 at 09:00 Aripiprazole (Abilify) 20 mg HS PO Last administered on 10/10/17at 21:00; Start 10/05/17 at 22:45 Budesonide/ Formoterol Fumarate (Symbicort 160-4.5 Mcg Inh) 2 puff BID INH Last administered on 10/11/17 09:35; Start 10/06/17 at 09:00 Diazepam (Valium) 2 mg BID PO Last administered on 10/07/17 20:21; Start at 09:00; Status Future Hold Diazepam (Valium) 10 mg HS PO Last administered on 10/07/17 20:21; Start at 22:45; Status Future Hold Divalproex Sodium (Depakote Er) 750 mg BID PO Last administered on 10/11/17 09 :40; Start 10/06/17 at 09:00 Fenofibrate (Tricor) 145 mg DAILY PO Last administered on 10/11/17 09:40; Start 10/06/17 at 09:00 Fluoxetine HCl (PROzac) 20 mg TID PO Last administered on 10/11/17at 13:40; Start 10/06/17 at 09:00 Gabapentin (Neurontin) 800 mg BID PO Last administered on 10/11/17 09:40; Start 10/06/17 at 09:00 Haloperidol (Haldol) 0.5 mg TID PO Last administered on 10/07/17 18:10; Start 10/06/17 at 09:00; Status Future Hold Tamsulosin HCl (Flomax) 0.4 mg BID PO Last administered on 10/11/17 09:40; Start 10/06/17 at 09:00 Tiotropium [place] (Spiriva Inh) 18 mcg DAILY INH Last administered on 09:35; Start 10/06/17 at 09:00 Zolpidem Tartrate (Ambien) 10 mg HS PRN PO INSOMNIA; Start 10/05/17 at 22:45 Vancomycin HCl 2500 mg/Sodium Chloride 525 ml @ 250 mls/hr ONCE ONCE IV Last administered on 10/06/17at 00:10; Start 10/06/17 at 01:00; Stop 10/06/17 at 03:05; Status DC Vancomycin HCl 1500 mg/Sodium Chloride 515 ml @ 257.5 mls/ hr Q12H IV Last administered on 10/07/17at 18:10; Start 10/06/17 at 18:00; Stop 10/07/17 at 18:52; Status DC Miscellaneous Information SPECIFIC LAB TO BE DRAWN:[facility]... ONCE ONCE .XX Last administered on 10/07/17at 18:00; Start 10/07/17 at 17:45; Stop 10/07/17 at 17:46; Status DC Vancomycin HCl 1750 mg/Sodium Chloride 517.5 ml @ 250 mls/hr Q8H IV Last administered on 10/08/17at 10:00; Start 10/08/17 at 02:00; Stop 10/08/17 at 20:26; Status DC Miscellaneous Information SPECIFIC LAB TO BE LEOLA... ONCE ONCE .XX ; Start at 19:00; Stop 10/07/17 at 19:01; Status DC Miscellaneous Information SPECIFIC LAB TO BE LEOLA... ONCE ONCE .XX ; Start at 17:45; Stop 10/08/17 at 17:46; Status DC Vancomycin HCl 2000 mg/Sodium Chloride 520 ml @ 250 mls/hr Q12H IV Last administered on 10/11/17at 10:16; Start 10/08/17 at 22:00 Miscellaneous Information SPECIFIC LAB TO BE [facility]... ONCE ONCE .XX Last administered on 10/10/17at 09:45; Start 10/10/17 at 09:45; Stop 10/10/17 at 09:46 ; Status DC Methylprednisolone Sodium Succinate (SoluMEDROL INJ) 40 mg Q8HR IV PUSH Last administered on 10/11/17at 13:40; Start 10/10/17 at 14:00 Atropine Sulfate (Atropine Inj) 0.5 mg UNSCH X1 PRN IV PUSH bradycardia<40 or symptomatic Last administered on 10/11/17at 09:32; Start 10/11/17 at 01:00; Stop 10/14/17 at 00:59 Clonidine (Catapres) 0.1 mg Q4H PRN PO SBP>160, DBP>90; Start 10/11/17 at 09:00 A/P Problem List: (1) Sepsis ICD Code: A41.9 - Sepsis, unspecified organism Status: Resolved (2) Gastroenteritis ICD Code: K52.9 - Noninfective gastroenteritis and colitis, unspecified (3) Hyperkalemia ICD Code: E87.5 - Hyperkalemia (4) Respiratory failure with hypoxia and hypercapnia ICD Code: J96.91 - Respiratory failure, unspecified with hypoxia; J96.92 - Respiratory failure, unspecified with hypercapnia (5) CO2 narcosis ICD Code: R06.89 - Other abnormalities of breathing Assessment and Plan 47 year-old man with 1. Sepsis: Resolved 2. PNA: CT Abd/Pelvis w/ RLL patchy airspace disease likely bronchopneumonia or aspiration. Currently on cefepime IV. DuoNeb prn as needed. PATIENT WORSENED AND WAS TRANSFERRED TO ICU 3. Gastroenteritis: Improved and Gallbladder US w/ no acute findings. Analgesics/antiemetics as needed. 4. Hyperkalemia: Resolved 5. Cholelithiasis: Outpatient follow-up will general surgery 6. Other chronic medical conditions: Continue outpatient medications 7. Toxic encephalopathy: Resolved; continue to hold all [employer] depressant medication 8. Respiratory failure with hypoxia and hypercapnia CO2 narcosis Start BiPAP DuoNeb scheduled and when necessary Start Solu-Medrol IV Consult pulmonary medicine Transfer patient to ICU HAVING SYMPTOMATIC BRADYCARDIA- NEEDING ATROPINE FOR HEART RATE UNDER 40 DW RN CONSULT PSYCHIATRY TO ADJUST MEDS CONSULT CARDIO REGARDING BRADYCARDIA Discharge Planning DC ON HOLD Trenton Starr DO Oct 11, 2017 14:22
--- NOTE | 2017-10-11 15:58 | PD.CONS ---
HPI Consult Requested By Primary Care Physician History of Present Illness 47-year-old male with PMH of Anxiety, Depression, Bipolar Disorder, COPD, Developmental Delay, h/o TIA and Asthma who presented to the ER with complaints of abdominal pain x2 days. Pt is poor historian, but able to relay that pain is mostly in RUQ, sharp, severe, 8/10, non-radiating. Reports associated nausea , vomiting and diarrhea. No fever, chills or sick contacts. On arrival, BP 144 /82, HR 109, O2 sat 95% on RA, Afebrile. WBC 17.5. K+ 5.9. Lactic Acid normal. CXR with minimal basilar atelectasis. Gallbladder US with multiple gallstones, no biliary ductal dilatation. CT Abd/Pelvis w/ no acute abdominal findings, noted to have patchy airspace disease RLL, treated for bronchopneumonia. Cardiology consulted due to episodes of ASYMPTOMATIC bradycardia while sleeping. Review of Systems ROS Limitations: Uncooperative, Poor Historian Past Family Social History Allergies: Coded Allergies: No Known Allergies (Verified Allergy, Mild, 10/17/07) melon (Verified Allergy, Unknown, 10/08/17) Per MAR sent by facility. tomato (Verified Allergy, Unknown, 10/08/17) Per MAR sent by facility. watermelon (Verified Allergy, Unknown, 10/08/17) Per MAR sent by facility. Past Medical History Anxiety, Depression, Bipolar Disorder, COPD, Developmental Delay, h/o TIA and Asthma Past Surgical History Back Surgery Reported Medications Reported Meds & Active Scripts Active Azithromycin 500 Mg Tab 500 Mg PO DAILY Ambien (Zolpidem Tartrate) 10 Mg Tab 10 Mg PO HS PRN Valium (Diazepam) 10 Mg Tab 10 Mg PO HS Valium (Diazepam) 2 Mg Tab 2 Mg PO BID Flomax (Tamsulosin HCl) 0.4 Mg Cap 0.4 Mg PO BID Polyethylene Glycol 3350 Powder (Polyethylene Glycol) 17 Gm Pow 17 Gm PO DAILY Fluoxetine (Fluoxetine HCl) 20 Mg Capsule 20 Mg PO TID Fenofibrate 145 Mg Tab 145 Mg PO DAILY Depakote ER (Divalproex Sodium) 250 Mg Floridalma 750 Mg PO 3 BID Symbicort Inh (Budesonide/Formoterol Fumarate) 160-4.5 Mcg/Act Aero 2 Puff INH BID Abilify (Aripiprazole) 20 Mg Tab 20 Mg PO DAILY 15 Days Gabapentin 800 Mg Tab 800 Mg PO BID (0800,1600) Atarax (Hydroxyzine HCl) 25 Mg Tab 25 Mg PO Q8HPRN Deltasone (Prednisone) 20 Mg Tab 20 Mg PO BID Reported Proair Hfa 8.5 GM Inh (Albuterol Sulfate) 90 Mcg/Act Aer 2 Puff INH Q4-6H PRN 108 mcg/actuation Zolpidem (Zolpidem Tartrate) 10 Mg Tab 10 Mg PO HS PRN Symbicort Inh (Budesonide/Formoterol Fumarate) 80-4.5 Mcg/Act Aero 2 Puff INH Q12HR Spiriva Handihaler (Tiotropium Inh) 18 Mcg Cap 18 Mcg INH DAILY 1 capsule = 18 mcg Lactulose Liq (Lactulose) 10 Gm/15 Ml Soln 30 Ml PO Q6H Haloperidol 0.5 Mg Tab 0.5 Mg PO TID Diazepam 10 Mg Tab 10 Mg PO HS Diazepam 2 Mg Tab 2 Mg PO BID Abilify (Aripiprazole) 20 Mg Tab 20 Mg PO HS No Current Meds (Miscellaneous Medication) Misc Active Ordered Medications Current Medications Medications (Trade) Dose Ordered Sig/Anna Route Start Time Stop Time Status Last Admin Pharmacy Profile Note 0 ml @ 0 mls/hr UNSCH OTHER 10/05/17 22:45 Cefepime HCl 1000 mg/Sodium Chloride 100 ml @ 200 mls/hr Q12H IV 10/06/17 09:00 10/11/17 09:34 (Duoneb Neb) 1 ampule Q4HR NEB PRN NEB 10/05/17 22:45 10/11/17 10:00 Sodium Chloride 1,000 ml @ 100 mls/hr Q10H IV 10/05/17 22:43 Future Hold 10/10/17 02:56 (NS Flush) 2 ml UNSCH PRN IV FLUSH 10/05/17 22:45 (NS Flush) 2 ml BID IV FLUSH 10/06/17 09:00 10/11/17 09:35 (Zofran Inj) 4 mg Q6H PRN IVP 10/05/17 22:45 10/06/17 21:51 (Tylenol) 650 mg Q6H PRN PO 10/05/17 22:45 10/06/17 16:57 ([place] 5-325 Mg) 1 tab Q4H PRN PO 10/05/17 22:45 (Morphine Inj) 2 mg Q3H PRN IV PUSH 10/05/17 22:45 (Beatriz-Colace) 1 tab BID PO 10/06/17 09:00 10/11/17 09:39 (Milk Of Magnesia Liq) 30 ml Q12H PRN PO 10/05/17 22:45 (Senokot) 17.2 mg Q12H PRN PO 10/05/17 22:45 (Dulcolax Supp) 10 mg DAILY PRN RECTAL 10/05/17 22:45 (Lactulose Liq) 30 ml DAILY PRN PO 10/05/17 22:45 (Abilify) 20 mg DAILY PO 10/06/17 09:00 10/11/17 09:00 (Abilify) 20 mg HS PO 10/05/17 22:45 10/10/17 21:00 (Symbicort 160-4.5 Mcg Inh) 2 puff BID INH 10/06/17 09:00 10/11/17 09:35 (Valium) 2 mg BID PO 10/06/17 09:00 Future Hold 10/07/17 20:21 (Valium) 10 mg HS PO 10/05/17 22:45 Future Hold 10/07/17 20:21 (Depakote Er) 750 mg BID PO 10/06/17 09:00 10/11/17 09:40 (Tricor) 145 mg DAILY PO 10/06/17 09:00 10/11/17 09:40 (PROzac) 20 mg TID PO 10/06/17 09:00 10/11/17 13:40 (Neurontin) 800 mg BID PO 10/06/17 09:00 10/11/17 09:40 (Haldol) 0.5 mg TID PO 10/06/17 09:00 Future Hold 10/07/17 18:10 (Flomax) 0.4 mg BID PO 10/06/17 09:00 10/11/17 09:40 (Spiriva Inh) 18 mcg DAILY INH 10/06/17 09:00 10/11/17 09:35 (Ambien) 10 mg HS PRN PO 10/05/17 22:45 Vancomycin HCl 2000 mg/Sodium Chloride 520 ml @ 250 mls/hr Q12H IV 10/08/17 22:00 10/11/17 10:16 (SoluMEDROL INJ) 40 mg Q8HR IV PUSH 10/10/17 14:00 10/11/17 13:40 (Atropine Inj) 0.5 mg UNSCH X1 PRN IV PUSH 10/11/17 01:00 10/14/17 00:59 10/11/17 09:32 (Catapres) 0.1 mg Q4H PRN PO 10/11/17 09:00 Family History Reviewed. No h/o DM or CAD Social History Negative for alcohol, tobacco or drugs. Physical Exam Vital Signs Vital Signs Date Time Temp Pulse Resp B/P (MAP) Pulse Ox O2 Delivery O2 Flow Rate FiO2 10/11/17 12:00 54 10/11/17 12:00 97.3 54 24 134/76 (95) 90 10/11/17 10:00 64 10/11/17 09:48 93 Venturi Mask 6.00 50 10/11/17 08:35 95 BiPAP 35 10/11/17 08:33 92 10/11/17 08:00 50 10/11/17 08:00 97.1 50 19 179/81 (113) 92 10/11/17 07:00 97 Bi-Pap 35 10/11/17 06:00 43 10/11/17 05:15 96 BiPAP 35 10/11/17 04:00 44 10/11/17 04:00 97.4 44 20 139/66 (90) 95 10/11/17 03:34 95 Ventilator 10/11/17 03:31 94 35 10/11/17 02:00 52 10/11/17 00:00 45 10/11/17 00:00 97.8 45 25 137/73 (94) 94 10/10/17 23:50 96 BiPAP 35 10/10/17 23:47 94 35 10/10/17 22:00 48 10/10/17 20:00 60 10/10/17 20:00 98.4 60 23 126/74 (91) 94 10/10/17 19:47 95 BiPAP 10/10/17 19:45 95 35 10/10/17 19:00 94 Bi-Pap 35 10/10/17 18:00 62 1/10/18 16:00 97.9 54 24 132/70 (90) 94 10/10/17 16:00 54 Laboratory Laboratory Tests Test 10/10/17 20:49 10/11/17 01:43 Blood Gas Puncture Site RT RADIAL Blood Gas Patient Temperature 98.6 Blood Gas HCO3 32 Blood Gas Base Excess 7.3 Blood Gas Oxygen Saturation 96 Arterial Blood pH 7.41 Arterial Blood Partial Pressure CO2 52 Arterial Blood Partial Pressure O2 94 Arterial Blood Oxygen Content 13.9 Arterial Blood Carboxyhemoglobin 1.2 Arterial Blood Methemoglobin 0.9 Blood Gas Hemoglobin 10.3 Oxygen Delivery Device CPAP Blood Gas Inspired Oxygen 35 White Blood Count 4.6 Red Blood Count 3.65 Hemoglobin 10.7 Hematocrit 32.5 Mean Corpuscular Volume 88.8 Mean Corpuscular Hemoglobin 29.4 Mean Corpuscular Hemoglobin Concent 33.1 Red Cell Distribution Width 13.0 Platelet Count 190 Mean Platelet Volume 8.2 Neutrophils (%) (Auto) 85.7 Lymphocytes (%) (Auto) 11.5 Monocytes (%) (Auto) 2.6 Eosinophils (%) (Auto) 0.1 Basophils (%) (Auto) 0.1 Neutrophils # (Auto) 3.9 Lymphocytes # (Auto) 0.5 Monocytes # (Auto) 0.1 Eosinophils # (Auto) 0.0 Basophils # (Auto) 0.0 CBC Comment DIFF FINAL Differential Comment Blood Urea Nitrogen 14 Creatinine 0.55 Random Glucose 109 Calcium Level 8.3 Magnesium Level 2.3 Sodium Level 139 Potassium Level 4.6 Chloride Level 101 Carbon Dioxide Level 31.0 Anion Gap 7 Estimat Glomerular Filtration Rate 161 Date/Time Source Procedure Growth Status 10/05/17 19:25 Nasal Washing Influenza Types A,B Antigen ([facility]DIS[facility]) - Final NEGATIVE FOR FLU A AND B ANTIGEN.... Complete Result Diagram: 10/11/17 0143 10/11/17 0143 Imaging Last Impressions Gall Bladder Ultrasound 10/05/17 0000 Signed Impressions: Service Date/Time: Thursday, October 05, 2017 21:34 - CONCLUSION: 1. Multiple gallstones without biliary ductal dilatation. Mild fatty liver. Jose Alejandro Ramos MD Chest X-Ray 10/05/17 0000 Signed Impressions: Service Date/Time: Thursday, October 05, 2017 20:05 - CONCLUSION: 1. Minimal basilar atelectasis. Jose Alejandro Ramos MD Abdomen/Pelvis CT 10/05/17 0000 Signed Impressions: Service Date/Time: Thursday, October 05, 2017 21:04 - CONCLUSION: 1. No acute findings within the abdomen and pelvis. 2. Patchy airspace disease in the right lung base most characteristic of bronchopneumonia or aspiration. Previous fusion lower lumbar spine across the lumbosacral junction. Jose Alejandro Ramos MD Assessment and Plan Problem List: (1) Bradycardia ICD Codes: R00.1 - Bradycardia, unspecified Plan: Asymptomatic bradycardia likely related t psych medications ?Abilify No CV complaints No further cardiac work up recommended Recs: Toxicology screen D/C atropine PRN Cont Telemetry monitoring Avoid AV blocking agents Will be available PRN for any questions or concerns Esteban Nowak MD Oct 11, 2017 15:58
--- NOTE | 2017-10-11 17:30 | HHI.PR ---
Subjective Remarks better less sob Objective Vital Signs Date Time Temp Pulse Resp B/P (MAP) Pulse Ox O2 Delivery O2 Flow Rate FiO2 10/11/17 16:00 46 10/11/17 16:00 98.1 46 26 126/61 (82) 91 10/11/17 14:00 48 10/11/17 12:00 54 10/11/17 12:00 97.3 54 24 134/76 (95) 90 10/11/17 10:00 64 10/11/17 09:48 93 Venturi Mask 6.00 50 10/11/17 08:35 95 BiPAP 35 10/11/17 08:33 92 10/11/17 08:00 50 10/11/17 08:00 97.1 50 19 179/81 (113) 92 10/11/17 07:00 97 Bi-Pap 35 10/11/17 06:00 43 10/11/17 05:15 96 BiPAP 35 10/11/17 04:00 44 10/11/17 04:00 97.4 44 20 139/66 (90) 95 10/11/17 03:34 95 Ventilator 10/11/17 03:31 94 35 10/11/17 02:00 52 10/11/17 00:00 45 10/11/17 00:00 97.8 45 25 137/73 (94) 94 10/10/17 23:50 96 BiPAP 35 10/10/17 23:47 94 35 10/10/17 22:00 48 10/10/17 20:00 60 10/10/17 20:00 98.4 60 23 126/74 (91) 94 10/10/17 19:47 95 BiPAP 10/10/17 19:45 95 35 10/10/17 19:00 94 Bi-Pap 35 10/10/17 18:00 62 I/O 10/10/17 10/10/17 10/10/17 10/11/17 10/11/17 10/11/17 07:00 15:00 23:00 07:00 15:00 23:00 Intake Total 1506 ml 1400 ml 100 ml 620 ml 620 ml Output Total 1350 ml 1800 ml Balance 1506 ml 1400 ml -1250 ml -1180 ml 620 ml Intake Oral 0 ml 120 ml IV Total 1506 ml 1400 ml 100 ml 500 ml 620 ml Output Urine Total 1350 ml 1800 ml # Bowel Movements 0 0 Result Diagram: 10/11/1714210/11/17142 Objective Remarks Physical Exam GENERAL: This is a well-nourished, well-developed patient, in no apparent distress. SKIN: No rashes, ecchymoses or lesions. Cool and dry. HEAD: Atraumatic. Normocephalic. No temporal or scalp tenderness. off bipap EYES: Pupils equal round and reactive. Extraocular motions intact. No scleral icterus. No injection or drainage. ENT: Nose without bleeding, purulent drainage or septal hematoma. Throat without erythema, tonsillar hypertrophy or exudate. Uvula midline. Airway patent. NECK: Trachea midline. No JVD or lymphadenopathy. Supple, nontender, no meningeal signs. CARDIOVASCULAR: Regular rate and rhythm without murmurs, gallops, or rubs. RESPIRATORY: bilateral crackles, mild exp wheezing GASTROINTESTINAL: Abdomen soft, non-tender, nondistended. No hepato-splenomegaly , or palpable masses. No guarding. MUSCULOSKELETAL: Extremities without clubbing, cyanosis, or edema. No joint tenderness, effusion, or edema noted. No calf tenderness. Negative Homans sign bilaterally. NEUROLOGICAL: Awake and alert. Cranial nerves II through XII intact. Motor and sensory grossly within normal limits. Five out of 5 muscle strength in all muscle groups. Normal speech. Laboratory Assessment and Plan Assessment and Plan PNA Hypercapnic resp failure Obesity cont current plan cont steroids ? oral prednisone in am cont bipap will likely need outpxt PSG wean off fio2 for o2 sat more than 88%. Quang Hernandez MD Oct 11, 2017 17:30
[2017-10-12] VITALS (14 sets, daily range): BP systolic 104–108; BP diastolic 59–64; PULSE 47–66; RESP 16–25; TEMP 97.1–98.8; O2SAT 90–96
[2017-10-12] MEDS: methylPREDNISolone SOD SUCC 40 MG/1 ML VIAL IV PUSH SCH ×3 (06:06→21:36)
[2017-10-12 06:13] LABS: AUTOMATED NEUTROPHIL # 7.3 TH/MM3 (1.8-7.7); BASOPHIL % 0.1 % (0.0-2.0); HEMATOCRIT 33.7 % (39.0-51.0); HEMOGLOBIN 11.1 GM/DL (13.0-17.0); LYMPHOCYTE # 0.8 TH/MM3 (1.0-4.8); MEAN CELL VOLUME 88.5 FL (80.0-100.0); MEAN CORPUSCULAR HEMOGLOBIN 29.1 PG (27.0-34.0); MEAN CORPUSCULAR HGB CONC 32.9 % (32.0-36.0); MEAN PLATELET VOLUME 8.7 FL (7.0-11.0); MONO % 3.9 % (0.0-8.0); MONOCYTE # 0.3 TH/MM3 (0-0.9); PLATELET COUNT 269 TH/MM3 (150-450); RED BLOOD COUNT 3.81 MIL/MM3 (4.50-5.90); RED CELL DISTRIBUTION WIDTH 13.4 % (11.6-17.2); WHITE BLOOD COUNT 8.4 TH/MM3 (4.0-11.0)
[2017-10-12 06:36] LABS: ALBUMIN 2.6 GM/DL (3.4-5.0); AST (GOT) 15 U/L (15-37); BICARBONATE 31.9 MEQ/L (21.0-32.0); BLOOD UREA NITROGEN 16 MG/DL (7-18); CALCIUM 8.7 MG/DL (8.5-10.1); CHLORIDE 103 MEQ/L (98-107); CREATININE 0.63 MG/DL (0.60-1.30); GLOMERULAR FILTRATION RATE 138 ML/MIN (>89); GLUCOSE,RANDOM 120 MG/DL (74-106); MAGNESIUM 2.5 MG/DL (1.5-2.5); SODIUM (NA) 141 MEQ/L (136-145)
[2017-10-12 06:48] LABS: ALKALINE PHOSPHATASE 30 U/L (45-117); ALT (GPT) 22 U/L (12-78); FREE T4 0.72 NG/DL (0.76-1.46); PHOSPHORUS 1.7 MG/DL (2.5-4.9); TOTAL BILIRUBIN ADULT 0.3 MG/DL (0.2-1.0); TOTAL PROTEIN 6.6 GM/DL (6.4-8.2)
[2017-10-12] MEDS: TAMSULOSIN HCL 0.4 MG CAP PO SCH ×2 (09:00→20:54)
[2017-10-12] MEDS: SODIUM CHLORIDE 0.9% FLUSH 10 ML FLUSH IV FLUSH SCH ×2 (09:00→20:53)
[2017-10-12] MEDS: GABAPENTIN 400 MG CAP PO SCH ×2 (09:00→20:54)
[2017-10-12] MEDS: FLUoxetine HCL 20 MG CAP PO SCH (09:00)
[2017-10-12] MEDS: CEFEPIME INJ 1,000 MG in SODIUM CHLORIDE 0.9% INJ 100 ML IV SCH ×2 (09:00→20:53)
[2017-10-12] MEDS: TIOTROPIUM BROMIDE 18 MCG INH INH SCH (09:00)
[2017-10-12] MEDS: BUDESONIDE-FORMOTEROL 160/4.5 MCG INHALER INH SCH ×2 (09:00→20:52)
[2017-10-12] MEDS: RESP: ALBUTEROL 2.5 MG/IPRATROPIUM 0.5 MG NEB (PRN) NEB (09:05)
[2017-10-12] MEDS: DOCUSATE SODIUM 50 MG/SENNA 8.6 MG TAB PO SCH ×2 (09:54→20:53)
[2017-10-12] MEDS: VANCOMYCIN INJ 2,000 MG in SODIUM CHLORID 0.9% 500 ML INJ 500 ML IV SCH (09:54)
[2017-10-12] MEDS: FENOFIBRATE 145 MG TAB PO SCH (09:54)
[2017-10-12] MEDS: DIVALPROEX SODIUM E.R. 250 MG TAB PO SCH ×2 (09:55→20:54)
--- NOTE | 2017-10-12 10:30 | HHI.PR ---
Subjective Remarks Follow-up sepsis/community acquired bacterial pneumonia 10/06/17-patient seen and examined, Tmax 100.2 at 4 PM however currently afebrile. Still complains of shortness of breath. 10/07/17-patient seen and examined, currently afebrile. Overnight patient had one episode of fall. Stable this morning with improvement of respiratory symptoms.. No diarrhea 10/08/17-patient seen and examined, Patient had episode of oxygen desaturation overnight for which a simple mask was placed 10/09/17-patient seen and examined,Although improved today, patient is still lethargic however he is able to follow command and requiring simple mask oxygen. Discharge was held yesterday 10/10/17-patient seen and examined, Patient with CO2 narcosis requiring BIPAP. Alert and oriented x 2 10-11-17 PATIENT REMAINS IN ICU-REQUIRING BIPAP ON AND OFF AND ATROPINE FOR HEART RATE DIPPING BELOW 40 WILL CONSULT PSYCHIATRY FOR MEDICATION ADJUSTMENT CONSULT CARDIOLOGY REGARDING BRADYCARDIA DW RN AND PT 10-12 patient seen and examined sitting in chair Cardiology did not feel there was anything to do other than monitor and they signed off Psychiatry saw the patient no note is available yet Sitting in chair States he is breathing better We'll advance diet Increase activity Still uses BiPAP last night and may need it today Objective Vitals Vital Signs Date Time Temp Pulse Resp B/P (MAP) Pulse Ox O2 Delivery O2 Flow Rate FiO2 10/12/17 10:00 53 10/12/17 09:05 94 Venturi Mask 6.00 50 10/12/17 08:00 60 10/12/17 08:00 97.1 60 16 108/64 (79) 90 10/12/17 07:00 90 Venturi Mask 35 10/12/17 06:00 57 10/12/17 04:06 94 40 10/12/17 04:00 53 10/12/17 04:00 98.0 53 20 104/64 (77) 91 10/12/17 02:00 52 10/12/17 00:00 97.3 47 24 104/62 (76) 96 10/12/17 00:00 47 10/11/17 22:00 92 Bi-Pap 40 10/11/17 22:00 63 10/11/17 20:47 91 40 10/11/17 20:00 97.3 56 24 109/63 (78) 91 10/11/17 18:00 64 10/11/17 16:00 46 10/11/17 16:00 98.1 46 26 126/61 (82) 91 10/11/17 14:00 48 10/11/17 12:00 54 10/11/17 12:00 97.3 54 24 134/76 (95) 90 I/O 10/11/17 10/11/17 10/11/17 10/12/17 10/12/17 10/12/17 07:00 15:00 23:00 07:00 15:00 23:00 Intake Total 620 ml 620 ml 120 ml 0 ml Output Total 1800 ml 1200 ml 2200 ml Balance -1180 ml 620 ml -1080 ml -2200 ml Intake Oral 120 ml 120 ml 0 ml IV Total 500 ml 620 ml Output Urine Total 1800 ml 1200 ml 2200 ml # Voids 1 # Bowel Movements 0 0 0 Result Diagram: 10/12/17 0502 10/12/17 0502 Other Results Laboratory Tests Test 10/10/17 00:35 10/10/17 08:15 10/10/17 09:40 10/10/17 20:49 Blood Gas Puncture Site LT RADIAL LT RADIAL RT RADIAL Blood Gas Patient Temperature 98.6 98.6 98.6 Blood Gas HCO3 34 mmol/L 34 mmol/L 32 mmol/L Blood Gas Base Excess 7.7 mmol/L 8.7 mmol/L 7.3 mmol/L Blood Gas Oxygen Saturation 96 % 95 % 96 % Arterial Blood pH 7.30 7.37 7.41 Arterial Blood Partial Pressure CO2 71 mmHg 61 mmHg 52 mmHg Arterial Blood Partial Pressure O2 112 mmHg 88 mmHg 94 mmHg Arterial Blood Oxygen Content 13.6 Vol % 13.5 Vol % 13.9 Vol % Arterial Blood Carboxyhemoglobin 1.0 % 1.2 % 1.2 % Arterial Blood Methemoglobin 1.0 % 0.8 % 0.9 % Blood Gas Hemoglobin 9.9 G/DL 10.0 G/DL 10.3 G/DL Oxygen Delivery Device SIMPLE MASK NASAL CANNULA CPAP Blood Gas Liter Flow 6 L/M 6 L/M Creatinine 0.46 MG/DL Estimat Glomerular Filtration Rate 198 ML/MIN Vancomycin Level Trough 12.7 MCG/ML Blood Gas Inspired Oxygen 35 % Test 10/11/17 01:43 10/12/17 05:02 White Blood Count 4.6 TH/MM3 8.4 TH/MM3 Red Blood Count 3.65 MIL/MM3 3.81 MIL/MM3 Hemoglobin 10.7 GM/DL 11.1 GM/DL Hematocrit 32.5 % 33.7 % Mean Corpuscular Volume 88.8 FL 88.5 FL Mean Corpuscular Hemoglobin 29.4 PG 29.1 PG Mean Corpuscular Hemoglobin Concent 33.1 % 32.9 % Red Cell Distribution Width 13.0 % 13.4 % Platelet Count 190 TH/MM3 269 TH/MM3 Mean Platelet Volume 8.2 FL 8.7 FL Neutrophils (%) (Auto) 85.7 % 87.0 % Lymphocytes (%) (Auto) 11.5 % 9.0 % Monocytes (%) (Auto) 2.6 % 3.9 % Eosinophils (%) (Auto) 0.1 % 0.0 % Basophils (%) (Auto) 0.1 % 0.1 % Neutrophils # (Auto) 3.9 TH/MM3 7.3 TH/MM3 Lymphocytes # (Auto) 0.5 TH/MM3 0.8 TH/MM3 Monocytes # (Auto) 0.1 TH/MM3 0.3 TH/MM3 Eosinophils # (Auto) 0.0 TH/MM3 0.0 TH/MM3 Basophils # (Auto) 0.0 TH/MM3 0.0 TH/MM3 CBC Comment DIFF FINAL DIFF FINAL Differential Comment Blood Urea Nitrogen 14 MG/DL 16 MG/DL Creatinine 0.55 MG/DL 0.63 MG/DL Random Glucose 109 MG/DL 120 MG/DL Calcium Level 8.3 MG/DL 8.7 MG/DL Magnesium Level 2.3 MG/DL 2.5 MG/DL Sodium Level 139 MEQ/L 141 MEQ/L Potassium Level 4.6 MEQ/L 4.2 MEQ/L Chloride Level 101 MEQ/L 103 MEQ/L Carbon Dioxide Level 31.0 MEQ/L 31.9 MEQ/L Anion Gap 7 MEQ/L 6 MEQ/L Estimat Glomerular Filtration Rate 161 ML/MIN 138 ML/MIN Total Protein 6.6 GM/DL Albumin 2.6 GM/DL Phosphorus Level 1.7 MG/DL Alkaline Phosphatase 30 U/L Aspartate Amino Transf (AST/SGOT) 15 U/L Alanine Aminotransferase (ALT/SGPT) 22 U/L Total Bilirubin 0.3 MG/DL Free Thyroxine 0.72 NG/DL Thyroid Stimulating Hormone 3rd Gen 1.510 uIU/ML Imaging Last Impressions Gall Bladder Ultrasound 10/05/17 0000 Signed Impressions: Service Date/Time: Thursday, October 05, 2017 21:34 - CONCLUSION: 1. Multiple gallstones without biliary ductal dilatation. Mild fatty liver. Jose Alejandro Ramos MD Chest X-Ray 10/05/17 0000 Signed Impressions: Service Date/Time: Thursday, October 05, 2017 20:05 - CONCLUSION: 1. Minimal basilar atelectasis. Jose Alejandro Ramos MD Abdomen/Pelvis CT 10/05/17 0000 Signed Impressions: Service Date/Time: Thursday, October 05, 2017 21:04 - CONCLUSION: 1. No acute findings within the abdomen and pelvis. 2. Patchy airspace disease in the right lung base most characteristic of bronchopneumonia or aspiration. Previous fusion lower lumbar spine across the lumbosacral junction. Jose Alejandro Ramos MD Objective Remarks GENERAL: Awake alert oriented talkative and cooperative SKIN: Warm and dry. HEAD: Atraumatic. Normocephalic. EYES: Pupils equal and round. No scleral icterus. No injection or drainage. Extraocular muscles intact ENT: No nasal bleeding or discharge. Mucous membranes pink and moist. Tongue is midline NECK: Trachea midline. No JVD. Supple CARDIOVASCULAR: Regular rate and rhythm. S1-S2 no S3 or S4 RESPIRATORY: No accessory muscle use. Rhonchi and wheezes scattered bilaterally GASTROINTESTINAL: Abdomen soft, non-tender, nondistended. Hepatic and splenic margins not palpable. MUSCULOSKELETAL: Extremities without clubbing, cyanosis, or edema. No obvious deformities. NEUROLOGICAL: Awake and alert. No obvious cranial nerve deficits. Motor grossly within normal limits. 4 out of 5 muscle strength in the arms and legs. Normal speech. PSYCHIATRIC: Appropriate mood and affect; insight and judgment normal. Much more awake and alert today Procedures none Medications and IVs Current Medications Sodium Chloride (NS Flush) 2 ml UNSCH PRN IV FLUSH FLUSH AFTER USING IV ACCESS Last administered on 10/05/17at 19:42; Start 10/05/17 at 19:30; Stop 10/08/17 at 19: 44; Status DC Morphine Sulfate (Morphine Inj) 4 mg ONCE ONCE IV PUSH Last administered on 10/05/17at 19:42; Start 10/05/17 at 19:45; Stop 10/05/17 at 19:46; Status DC Ondansetron HCl (Zofran Inj) 4 mg ONCE ONCE IV PUSH Last administered on at 19:42; Start 10/05/17 at 19:45; Stop 10/05/17 at 19:46; Status DC Sodium Chloride 1,000 ml @ 999 mls/hr BOLUS ONCE IV Last administered on at 19:42; Start 10/05/17 at 19:45; Stop 10/05/17 at 20:45; Status DC Iohexol (Omnipaque 350 Inj) 97 ml STK-MED ONCE IVCONTRAST Last administered on 10/05/17at 21:23; Start 10/05/17 at 21:23; Stop 10/05/17 at 21:24; Status DC Ampicillin Sodium/ Sulbactam Sodium 3 gm/Sodium Chloride 100 ml @ 200 mls/hr ONCE ONCE IV Last administered on 10/05/17at 23:01; Start 10/05/17 at 22:30; Stop 10/05/17 at 23:04; Status DC Pharmacy Profile Note 0 ml @ 0 mls/hr UNSCH OTHER ; Start 10/05/17 at 22:45 Cefepime HCl 1000 mg/Sodium Chloride 100 ml @ 200 mls/hr Q12H IV Last administered on 10/12/17at 09:00; Start 10/06/17 at 09:00 Albuterol/ Ipratropium (Duoneb Neb) 1 ampule Q4HR NEB PRN NEB SOB/WHEEZING Last administered on 10/12/17at 09:05; Start 10/05/17 at 22:45 Sodium Chloride 1,000 ml @ 100 mls/hr Q10H IV Last administered on 10/10/17at 02:56; Start 10/05/17 at 22:43; Status Future Hold Sodium Chloride (NS Flush) 2 ml UNSCH PRN IV FLUSH FLUSH AFTER USING IV ACCESS ; Start 10/05/17 at 22:45 Sodium Chloride (NS Flush) 2 ml BID IV FLUSH Last administered on 10/12/17at 09: 00; Start 10/06/17 at 09:00 Ondansetron HCl (Zofran Inj) 4 mg Q6H PRN IVP NAUSEA OR VOMITING Last administered on 10/06/17at 21:51; Start 10/05/17 at 22:45 Acetaminophen (Tylenol) 650 mg Q6H PRN PO FEVER/PAIN SCALE 1 TO 2 Last administered on 10/06/17at 16:57; Start 10/05/17 at 22:45 Acetaminophen/ Hydrocodone Bitart ([place] 5-325 Mg) 1 tab Q4H PRN PO PAIN SCALE 3 TO 5; Start 10/05/17 at 22:45 Morphine Sulfate (Morphine Inj) 2 mg Q3H PRN IV PUSH Pain 6-10; Start 10/05/17 at 22:45 Senna/Docusate Sodium (Beatriz-Colace) 1 tab BID PO Last administered on at 09:54; Start 10/06/17 at 09:00 Magnesium Hydroxide (Milk Of Magnesia Liq) 30 ml Q12H PRN PO Mild constipation ; Start 10/05/17 at 22:45 Sennosides (Senokot) 17.2 mg Q12H PRN PO Moderate constipation; Start 10/05/17 at 22:45 Bisacodyl (Dulcolax Supp) 10 mg DAILY PRN RECTAL SEVERE CONSITIPATION; Start at 22:45 Lactulose (Lactulose Liq) 30 ml DAILY PRN PO SEVERE CONSITIPATION; Start at 22:45 Aripiprazole (Abilify) 20 mg DAILY PO Last administered on 10/12/17at 09:00; Start 10/06/17 at 09:00 Aripiprazole (Abilify) 20 mg HS PO Last administered on 10/11/17at 20:17; Start 10/05/17 at 22:45 Budesonide/ Formoterol Fumarate (Symbicort 160-4.5 Mcg Inh) 2 puff BID INH Last administered on 10/12/17at 09:00; Start 10/06/17 at 09:00 Diazepam (Valium) 2 mg BID PO Last administered on 10/07/17 20:21; Start at 09:00; Status Future Hold Diazepam (Valium) 10 mg HS PO Last administered on 10/07/17at 20:21; Start at 22:45; Status Future Hold Divalproex Sodium (Depakote Er) 750 mg BID PO Last administered on 10/12/17at 09 :55; Start 10/06/17 at 09:00 Fenofibrate (Tricor) 145 mg DAILY PO Last administered on 10/12/17at 09:54; Start 10/06/17 at 09:00 Fluoxetine HCl (PROzac) 20 mg TID PO Last administered on 10/12/17at 09:00; Start 10/06/17 at 09:00 Gabapentin (Neurontin) 800 mg BID PO Last administered on 10/12/17at 09:00; Start 10/06/17 at 09:00 Haloperidol (Haldol) 0.5 mg TID PO Last administered on 10/07/17at 18:10; Start 10/06/17 at 09:00; Status Future Hold Tamsulosin HCl (Flomax) 0.4 mg BID PO Last administered on 10/12/17at 09:00; Start 10/06/17 at 09:00 Tiotropium [place] (Spiriva Inh) 18 mcg DAILY INH Last administered on at 09:00; Start 10/06/17 at 09:00 Zolpidem Tartrate (Ambien) 10 mg HS PRN PO INSOMNIA; Start 10/05/17 at 22:45 Vancomycin HCl 2500 mg/Sodium Chloride 525 ml @ 250 mls/hr ONCE ONCE IV Last administered on 10/06/17at 00:10; Start 10/06/17 at 01:00; Stop 10/06/17 at 03:05; Status DC Vancomycin HCl 1500 mg/Sodium Chloride 515 ml @ 257.5 mls/ hr Q12H IV Last administered on 10/07/17at 18:10; Start 10/06/17 at 18:00; Stop 10/07/17 at 18:52; Status DC Miscellaneous Information SPECIFIC LAB TO BE DRAWN:[facility]... ONCE ONCE .XX Last administered on 10/07/17at 18:00; Start 10/07/17 at 17:45; Stop 10/07/17 at 17:46; Status DC Vancomycin HCl 1750 mg/Sodium Chloride 517.5 ml @ 250 mls/hr Q8H IV Last administered on 10/08/17at 10:00; Start 10/08/17 at 02:00; Stop 10/08/17 at 20:26; Status DC Miscellaneous Information SPECIFIC LAB TO BE LEOLA... ONCE ONCE .XX ; Start at 19:00; Stop 10/07/17 at 19:01; Status DC Miscellaneous Information SPECIFIC LAB TO BE [facility]OLA... ONCE ONCE .XX ; Start at 17:45; Stop 10/08/17 at 17:46; Status DC Vancomycin HCl 2000 mg/Sodium Chloride 520 ml @ 250 mls/hr Q12H IV Last administered on 10/12/17at 09:54; Start 10/08/17 at 22:00 Miscellaneous Information SPECIFIC LAB TO BE [facility]... ONCE ONCE .XX Last administered on 10/10/17at 09:45; Start 10/10/17 at 09:45; Stop 10/10/17 at 09:46 ; Status DC Methylprednisolone Sodium Succinate (SoluMEDROL INJ) 40 mg Q8HR IV PUSH Last administered on 10/12/17at 06:06; Start 10/10/17 at 14:00 Atropine Sulfate (Atropine Inj) 0.5 mg UNSCH X1 PRN IV PUSH bradycardia<40 or symptomatic Last administered on 10/11/17at 09:32; Start 10/11/17 at 01:00; Stop 10/14/17 at 00:59 Clonidine (Catapres) 0.1 mg Q4H PRN PO SBP>160, DBP>90; Start 10/11/17 at 09:00 A/P Problem List: (1) Sepsis ICD Code: A41.9 - Sepsis, unspecified organism Status: Resolved (2) Gastroenteritis ICD Code: K52.9 - Noninfective gastroenteritis and colitis, unspecified (3) Hyperkalemia ICD Code: E87.5 - Hyperkalemia (4) Respiratory failure with hypoxia and hypercapnia ICD Code: J96.91 - Respiratory failure, unspecified with hypoxia; J96.92 - Respiratory failure, unspecified with hypercapnia (5) CO2 narcosis ICD Code: R06.89 - Other abnormalities of breathing Assessment and Plan 47 year-old man with 1. Sepsis: Resolved 2. PNA: CT Abd/Pelvis w/ RLL patchy airspace disease likely bronchopneumonia or aspiration. Currently on cefepime IV. DuoNeb prn as needed. PATIENT WORSENED AND WAS TRANSFERRED TO ICU 3. Gastroenteritis: Improved and Gallbladder US w/ no acute findings. Analgesics/antiemetics as needed. 4. Hyperkalemia: Resolved 5. Cholelithiasis: Outpatient follow-up will general surgery 6. Other chronic medical conditions: Continue outpatient medications 7. Toxic encephalopathy: Resolved; continue to hold all [employer] depressant medication 8. Respiratory failure with hypoxia and hypercapnia CO2 narcosis Start BiPAP DuoNeb scheduled and when necessary Hopefully can switch to oral prednisone later today if okay with pulmonary Consult pulmonary medicine has been seen by pulmonary already HAVING SYMPTOMATIC BRADYCARDIA- NEEDING ATROPINE FOR HEART RATE UNDER 40 has resolved now-- [facility] RN CONSULT PSYCHIATRY TO ADJUST MEDS --THEY have seen and no note is available yet CONSULT CARDIO REGARDING BRADYCARDIA-cardiology recommended no beta blockers or rate controlling agents which she is not on Advance diet Physical therapy and occupational therapy Discharge Planning DC ON HOLD Trenton Starr DO Oct 12, 2017 10:30
--- NOTE | 2017-10-12 12:59 | PD.PSY.CON ---
Provisional Diagnosis Admission Date Oct 05, 2017 at 22:39 [place]. Mild to moderate intellectual disability [place] II. Deferred History of Present Illness Service Psychiatry Consult Requested By Medical team Reason for Consult Medication revision Primary Care Physician HPI The patient is a 47-year-old man, domicile in a [facility], unemployed , single, with psychiatric history of intellectual disability, bipolar disorder , anxiety, adjustment disorder with disturbance of conduct, intermittent explosive disorder, multiple previous psychiatric hospitalizations, well-known in the psychiatric service, he is prescribed with psychotropics at his [facility], he is on Zoloft 20 mg 3 times a day, Abilify 20 mg twice a day, Haldol 5 mg 3 times a day, Depakote 750 mg twice a day, with PMH of COPD, Developmental Delay, h/o TIA and Asthma who presented to the ER with complaints of abdominal pain x2 days. Pt is poor historian, but able to relay that pain is mostly in RUQ, sharp, severe, 8/10, non-radiating. Reports associated nausea , vomiting and diarrhea. No fever, chills or sick contacts. On arrival, BP 144 /82, HR 109, O2 sat 95% on RA, Afebrile. WBC 17.5. K+ 5.9. Lactic Acid normal. CXR with minimal basilar atelectasis. Gallbladder US with multiple gallstones, no biliary ductal dilatation. CT Abd/Pelvis w/ no acute abdominal findings, noted to have patchy airspace disease RLL, treated for bronchopneumonia. She has been presenting as symptomatic bradycardia under the care of cardiology. Consulted to psychiatry to revise the potential impact of psychiatric medications in his bradycardia. On psychiatric evaluation today the patient is calm, cooperative, pleasant. Patient has a very concrete Thinking with the slowed thought process. However, patient is able to say that he has a good mood, he says that he is happy because he feels better. He denies anhedonia, he denies hopelessness, he denies helplessness, he denies suicidal and homicidal ideation, he denies visual and auditory hallucinations. There is no evidence of paranoia, psychosis, ideas of reference, agitation or aggressive behavior at this moment. The patient is fully oriented 3. No fluctuation of consciousness or gross cognitive impairment at this moment. She reports for compliant with his medications, he denies significant side effects. He denies the use of illegal drugs. Review of Systems Constitutional: DENIES: Diaphoretic episodes, Fatigue, Fever, Weight gain, Weight loss, Chills, Dizziness, Change in appetite, Night Sweats Endocrine: DENIES: Heat/cold intolerance, Polydipsia, Polyuria, Polyphagia Eyes: DENIES: Blurred vision, Diplopia, Eye inflammation, Eye pain, Vision loss , Photosensitivity, Double Vision Ears, nose, mouth, throat: DENIES: Tinnitus, Hearing loss, Vertigo, Nasal discharge, Oral lesions, Throat pain, Hoarseness, Ear Pain, Running Nose, Epistaxis, Sinus Pain, Toothache, Odynophagia Cardiovascular: DENIES: Chest pain, Palpitations, Syncope, Dyspnea on Exertion , PND, Lower Extremity Edema, Orthopnea, Claudication Gastrointestinal: DENIES: Abdominal pain, Black stools, Bloody stools, Constipation, Diarrhea, Nausea, Vomiting, Difficulty Swallowing, Anorexia Genitourinary: DENIES: Sexual dysfunction, Urinary frequency, Urinary incontinence, Urgency, Hematuria, Dysuria, Nocturia, Penile Discharge, Testicular Pain, Testicular Swelling Musculoskeletal: DENIES: Joint pain, Muscle aches, Stiffness, Joint Swelling, Back pain, Neck pain Integumentary: DENIES: Abnormal pigmentation, Nail changes, Pruritus, Rash Hematologic/lymphatic: DENIES: Bruising, Lymphadenopathy Immunologic/allergic: DENIES: Eczema, Urticaria Neurologic: DENIES: Abnormal gait, Headache, Localized weakness, Paresthesias, Seizures, Speech Problems, Tremor, Poor Balance Psychiatric: DENIES: Anxiety, Confusion, Mood changes, Depression, Hallucinations, Agitation, Suicidal Ideation, Homicidal Ideation, Delusions Past Family Social History Coded Allergies: No Known Allergies (Verified Allergy, Mild, 10/17/07) melon (Verified Allergy, Unknown, 10/08/17) Per MAR sent by facility. tomato (Verified Allergy, Unknown, 10/08/17) Per MAR sent by facility. watermelon (Verified Allergy, Unknown, 10/08/17) Per MAR sent by facility. Active Scripts Azithromycin (Azithromycin) 500 Mg Tab, 500 MG PO DAILY for Infection, #5 TAB 0 Refills Prov:Casimiro Fay MD 10/08/17 Zolpidem (Ambien) 10 Mg Tab, 10 MG PO HS Y for INSOMNIA, #10 TAB Prov:Casimiro Fay MD 10/08/17 Diazepam (Valium) 10 Mg Tab, 10 MG PO HS for Control Mood Swing, #10 TAB Prov:Casimiro Fay MD 10/08/17 Diazepam (Valium) 2 Mg Tab, 2 MG PO BID for Control Mood Swing, #10 TAB Prov:Casimiro Fay MD 10/08/17 Tamsulosin (Flomax) 0.4 Mg Cap, 0.4 MG PO BID for health, #60 CAP 0 Refills Prov:Flaquito Bañuelos MD 05/02/17 Polyethylene Glycol 3350 Powder (Polyethylene Glycol 3350 Powder) 17 Gm Pow, 17 GM PO DAILY for health, #1 BOX 0 Refills Prov:Flaquito Bañuelos MD 05/02/17 Fluoxetine (Fluoxetine) 20 Mg Capsule, 20 MG PO TID for health, #90 CAP 0 Refills Prov:Flaquito Bañuelos MD 05/02/17 Fenofibrate (Fenofibrate) 145 Mg Tab, 145 MG PO DAILY for health, #30 TAB 0 Refills Prov:Flaquito Bañuelos MD 05/02/17 Divalproex ER (Depakote ER) 250 Mg [place], 750 MG PO 3 bid for health, #180 TAB 0 Refills Prov:Flaquito Bañuelos MD 05/02/17 Budesonide-Formoterol Inh (Symbicort Inh) 160-4.5 Mcg/Act Aero, 2 PUFF INH BID for health, #1 BOTTLE 0 Refills Prov:Flaquito Bañuelos MD 05/02/17 Aripiprazole (Abilify) 20 Mg Tab, 20 MG PO DAILY for Mental Health for 15 Days, TAB 1 Refill Prov:Sonny Najera MD 04/05/17 Gabapentin (Gabapentin) 800 Mg Tab, 800 MG PO BID (0800,1600), #60 TAB 0 Refills Prov:Aron Madison MD 03/17/17 Hydroxyzine Hcl (Atarax) 25 Mg Tab, 25 MG PO Q8HPRN, #10 0 Refills Prov:Flaquito Johnson MD 10/17/07 Prednisone (Deltasone) 20 Mg Tab, 20 MG PO BID, #10 0 Refills Prov:Flaquito Johnson MD 10/17/07 Reported Medications Albuterol 8.5 GM Inh (Proair Hfa 8.5 GM Inh) 90 Mcg/Act Aer, 2 PUFF INH Q4-6H Y for SHORTNESS OF BREATH, #1 INHALER 0 Refills 108 mcg/actuation 10/05/17 Zolpidem (Zolpidem) 10 Mg Tab, 10 MG PO HS Y for INSOMNIA, TAB 0 Refills 10/05/17 Budesonide-Formoterol Inh (Symbicort Inh) 80-4.5 Mcg/Act Aero, 2 PUFF INH Q12HR for Asthma Management, #1 INHALER 0 Refills 10/05/17 Tiotropium Inh (Spiriva Handihaler) 18 Mcg Cap, 18 MCG INH DAILY for COPD, #30 CAP 0 Refills 1 capsule = 18 mcg 10/05/17 Lactulose Liq (Lactulose Liq) 10 Gm/15 Ml Soln, 30 ML PO Q6H, ML 0 Refills 10/05/17 Haloperidol (Haloperidol) 0.5 Mg Tab, 0.5 MG PO TID, TAB 0 Refills 10/05/17 Diazepam (Diazepam) 10 Mg Tab, 10 MG PO HS, TAB 0 Refills 10/05/17 Diazepam (Diazepam) 2 Mg Tab, 2 MG PO BID, TAB 0 Refills 10/05/17 Aripiprazole (Abilify) 20 Mg Tab, 20 MG PO HS, #30 TAB 0 Refills 10/05/17 Miscellaneous (No Current Meds) Misc, 0 Refills 10/17/07 Current Medications Medications (Trade) Dose Ordered Sig/Anna Route Start Time Stop Time Status Last Admin Pharmacy Profile Note 0 ml @ 0 mls/hr UNSCH OTHER 10/05/17 22:45 Cefepime HCl 1000 mg/Sodium Chloride 100 ml @ 200 mls/hr Q12H IV 10/06/17 09:00 10/12/17 09:00 (Duoneb Neb) 1 ampule Q4HR NEB PRN NEB 10/05/17 22:45 10/12/17 09:05 Sodium Chloride 1,000 ml @ 100 mls/hr Q10H IV 10/05/17 22:43 Future Hold 10/10/17 02:56 (NS Flush) 2 ml UNSCH PRN IV FLUSH 10/05/17 22:45 (NS Flush) 2 ml BID IV FLUSH 10/06/17 09:00 10/12/17 09:00 (Zofran Inj) 4 mg Q6H PRN IVP 10/05/17 22:45 10/06/17 21:51 (Tylenol) 650 mg Q6H PRN PO 10/05/17 22:45 10/06/17 16:57 ([place] 5-325 Mg) 1 tab Q4H PRN PO 10/05/17 22:45 (Morphine Inj) 2 mg Q3H PRN IV PUSH 10/05/17 22:45 (Beatriz-Colace) 1 tab BID PO 10/06/17 09:00 10/12/17 09:54 (Milk Of Magnesia Liq) 30 ml Q12H PRN PO 10/05/17 22:45 (Senokot) 17.2 mg Q12H PRN PO 10/05/17 22:45 (Dulcolax Supp) 10 mg DAILY PRN RECTAL 10/05/17 22:45 (Lactulose Liq) 30 ml DAILY PRN PO 10/05/17 22:45 (Abilify) 20 mg DAILY PO 10/06/17 09:00 10/12/17 09:00 (Abilify) 20 mg HS PO 10/05/17 22:45 10/11/17 20:17 (Symbicort 160-4.5 Mcg Inh) 2 puff BID INH 10/06/17 09:00 10/12/17 09:00 (Valium) 2 mg BID PO 10/06/17 09:00 Future Hold 10/07/17 20:21 (Valium) 10 mg HS PO 10/05/17 22:45 Future Hold 10/07/17 20:21 (Depakote Er) 750 mg BID PO 10/06/17 09:00 10/12/17 09:55 (Tricor) 145 mg DAILY PO 10/06/17 09:00 10/12/17 09:54 (PROzac) 20 mg TID PO 10/06/17 09:00 10/12/17 09:00 (Neurontin) 800 mg BID PO 10/06/17 09:00 10/12/17 09:00 (Haldol) 0.5 mg TID PO 10/06/17 09:00 Future Hold 10/07/17 18:10 (Flomax) 0.4 mg BID PO 10/06/17 09:00 10/12/17 09:00 (Spiriva Inh) 18 mcg DAILY INH 10/06/17 09:00 10/12/17 09:00 (Ambien) 10 mg HS PRN PO 10/05/17 22:45 (SoluMEDROL INJ) 40 mg Q8HR IV PUSH 10/10/17 14:00 10/12/17 06:06 (Atropine Inj) 0.5 mg UNSCH X1 PRN IV PUSH 10/11/17 01:00 10/14/17 00:59 10/11/17 09:32 (Catapres) 0.1 mg Q4H PRN PO 10/11/17 09:00 Vancomycin HCl 2250 mg/Sodium Chloride 522.5 ml @ 250 mls/hr Q12H IV 10/12/17 22:00 Miscellaneous Information SPECIFIC LAB TO BE [facility]... ONCE ONCE .XX 10/14/17 09:45 10/14/17 09:46 Family Psych History No family psychiatric history Social History Patient was born and raised in [place], he lives in a [facility], he is unemployed, single Patient's Strengths (min. 2) Verbal communication, establish outpatient care Physical Exam No tremors, no EPS, no acute akathisia, no catatonia, no psychomotor retardation or agitation Vital Signs Vital Signs Date Time Temp Pulse Resp B/P (MAP) Pulse Ox O2 Delivery O2 Flow Rate FiO2 10/12/17 10:00 53 10/12/17 09:05 94 Venturi Mask 6.00 50 10/12/17 08:00 97.1 16 108/64 (79) I/O 10/12/17 10/12/17 10/13/17 08:00 16:00 00:00 Intake Total 0 ml Output Total 2200 ml Balance -2200 ml Lab Results Test 10/12/17 05:02 White Blood Count 8.4 TH/MM3 Red Blood Count 3.81 MIL/MM3 Hemoglobin 11.1 GM/DL Hematocrit 33.7 % Mean Corpuscular Volume 88.5 FL Mean Corpuscular Hemoglobin 29.1 PG Mean Corpuscular Hemoglobin Concent 32.9 % Red Cell Distribution Width 13.4 % Platelet Count 269 TH/MM3 Mean Platelet Volume 8.7 FL Neutrophils (%) (Auto) 87.0 % Lymphocytes (%) (Auto) 9.0 % Monocytes (%) (Auto) 3.9 % Eosinophils (%) (Auto) 0.0 % Basophils (%) (Auto) 0.1 % Neutrophils # (Auto) 7.3 TH/MM3 Lymphocytes # (Auto) 0.8 TH/MM3 Monocytes # (Auto) 0.3 TH/MM3 Eosinophils # (Auto) 0.0 TH/MM3 Basophils # (Auto) 0.0 TH/MM3 CBC Comment DIFF FINAL Differential Comment Blood Urea Nitrogen 16 MG/DL Creatinine 0.63 MG/DL Random Glucose 120 MG/DL Total Protein 6.6 GM/DL Albumin 2.6 GM/DL Calcium Level 8.7 MG/DL Phosphorus Level 1.7 MG/DL Magnesium Level 2.5 MG/DL Alkaline Phosphatase 30 U/L Aspartate Amino Transf (AST/SGOT) 15 U/L Alanine Aminotransferase (ALT/SGPT) 22 U/L Total Bilirubin 0.3 MG/DL Sodium Level 141 MEQ/L Potassium Level 4.2 MEQ/L Chloride Level 103 MEQ/L Carbon Dioxide Level 31.9 MEQ/L Anion Gap 6 MEQ/L Estimat Glomerular Filtration Rate 138 ML/MIN Free Thyroxine 0.72 NG/DL Thyroid Stimulating Hormone 3rd Gen 1.510 uIU/ML Date/Time Source Procedure Growth Status 10/05/17 19:25 Nasal Washing Influenza Types A,B Antigen ([facility]) - Final NEGATIVE FOR FLU A AND B ANTIGEN.... Complete Mental Status Examination Appearance: Appropriate Consciousness: Alert Orientation: x4 Motor Activity: Normal gait Speech: Unremarkable Language: Adequate Fund of Knowledge: Adequate Attention and Concentration: Adequate Memory: Unremarkable Mood: Appropriate Affect: Appropriate Thought Process & Associations: Other (concrete) Thought Content: Appropriate Hallucination Type: None Delusion Type: None Suicidal Ideation: No Suicidal Plan: No Suicidal Intention: No Homicidal Ideation: No Homicidal Plan: No Homicidal Intention: No Insight: Adequate Judgment: Adequate Assessment & Plan Problem List: (1) Intellectual disability ICD Codes: F79 - Unspecified intellectual disabilities Status: Acute Assessment & Plan: On psychiatric evaluation today the patient does not present any acute, concerning for significant neuropsychiatric symptoms that requires an immediate psychiatric intervention or admission. The patient denies depressive symptoms, he denies anxiety, he denies adrianna, denies psychosis. He denies suicidal and homicidal ideation, he denies visual and auditory hallucinations. She has his baseline concrete thinking, with impaired abstract thinking and slow thought process which she is consistent with his chronic underlying intellectual disability. I have done a careful revision of psychotropics. I could not get in contact with outpatient psychiatrist at this moment, but adjustment needs to be done. Will decrease fluoxetine to 20 mg once a day, since fluoxetine is a very long-acting SSRI that doesn't need to be dosed 3 times per day, but also for loxapine is a potent inhibitor in the P450 system in the liver can increase multiple medications levels. We will decrease Abilify to 20 mg in the morning. The maximum recommended dose of Abilify is 30 mg per day. Agree with holding benzodiazepines, since benzodiazepine, worsening cognition in intellectual disability and induced paradoxical agitation. Continue Depakote 750 mg twice a day for behavioral dysregulation, this patient is well-known by becoming very agitated and at times aggressive. Will Order Depakote levels. If patient is not displaying any erratic and aggressive behavior also agree with holding Haldol 0.5 3 times a day until patient sees his outpatient psychiatrist. I will follow-up. Assessment & Plan Estimated LOS: Janes Jovel MD Oct 12, 2017 12:59
[2017-10-12 16:04] LABS: HEMOGLOBIN A1C 5.3 % (4.3-6.0)
[2017-10-12] MEDS: VANCOMYCIN INJ 2,250 MG in SODIUM CHLORID 0.9% 500 ML INJ 500 ML IV SCH (21:47)
[2017-10-13] VITALS (16 sets, daily range): BP systolic 96–126; BP diastolic 57–76; PULSE 44–65; RESP 12–19; TEMP 97.4–98.3; O2SAT 93–98
[2017-10-13 05:04] LABS: AUTOMATED NEUTROPHIL # 7.6 TH/MM3 (1.8-7.7); BASOPHIL % 0.2 % (0.0-2.0); HEMATOCRIT 32.9 % (39.0-51.0); HEMOGLOBIN 11.1 GM/DL (13.0-17.0); LYMPH % 11.6 % (9.0-44.0); MEAN CORPUSCULAR HEMOGLOBIN 29.6 PG (27.0-34.0); MEAN CORPUSCULAR HGB CONC 33.6 % (32.0-36.0); MEAN PLATELET VOLUME 8.3 FL (7.0-11.0); MONO % 4.1 % (0.0-8.0); MONOCYTE # 0.4 TH/MM3 (0-0.9); NEUT % 84.1 % (16.0-70.0); PLATELET COUNT 289 TH/MM3 (150-450); RED BLOOD COUNT 3.74 MIL/MM3 (4.50-5.90); RED CELL DISTRIBUTION WIDTH 13.4 % (11.6-17.2)
[2017-10-13] MEDS: methylPREDNISolone SOD SUCC 40 MG/1 ML VIAL IV PUSH SCH (05:10)
[2017-10-13 05:24] LABS: ALBUMIN 2.7 GM/DL (3.4-5.0); AST (GOT) 10 U/L (15-37); BICARBONATE 29.3 MEQ/L (21.0-32.0); BLOOD UREA NITROGEN 18 MG/DL (7-18); CALCIUM 8.8 MG/DL (8.5-10.1); CHLORIDE 103 MEQ/L (98-107); CREATININE 0.65 MG/DL (0.60-1.30); GLOMERULAR FILTRATION RATE 133 ML/MIN (>89); GLUCOSE,RANDOM 124 MG/DL (74-106); MAGNESIUM 2.2 MG/DL (1.5-2.5); SODIUM (NA) 136 MEQ/L (136-145)
[2017-10-13 05:38] LABS: ALKALINE PHOSPHATASE 29 U/L (45-117); ALT (GPT) 22 U/L (12-78); PHOSPHORUS 2.8 MG/DL (2.5-4.9); TOTAL BILIRUBIN ADULT 0.2 MG/DL (0.2-1.0); TOTAL PROTEIN 6.6 GM/DL (6.4-8.2)
[2017-10-13] MEDS: DIVALPROEX SODIUM E.R. 250 MG TAB PO SCH ×2 (08:23→21:10)
[2017-10-13] MEDS: FENOFIBRATE 145 MG TAB PO SCH (08:23)
[2017-10-13] MEDS: FLUoxetine HCL 20 MG CAP PO SCH (08:24)
[2017-10-13] MEDS: GABAPENTIN 400 MG CAP PO SCH ×2 (08:24→21:10)
[2017-10-13] MEDS: TAMSULOSIN HCL 0.4 MG CAP PO SCH ×2 (08:25→21:10)
[2017-10-13] MEDS: DOCUSATE SODIUM 50 MG/SENNA 8.6 MG TAB PO SCH ×2 (08:26→21:00)
[2017-10-13] MEDS: CEFEPIME INJ 1,000 MG in SODIUM CHLORIDE 0.9% INJ 100 ML IV SCH ×2 (08:29→21:09)
[2017-10-13] MEDS: SODIUM CHLORIDE 0.9% FLUSH 10 ML FLUSH IV FLUSH SCH ×2 (09:00→21:09)
[2017-10-13] MEDS: BUDESONIDE-FORMOTEROL 160/4.5 MCG INHALER INH SCH ×2 (09:00→21:09)
[2017-10-13] MEDS: TIOTROPIUM BROMIDE 18 MCG INH INH SCH (09:00)
--- NOTE | 2017-10-13 10:30 | HHI.PR ---
Subjective Remarks Follow-up sepsis/community acquired bacterial pneumonia 10/06/17-patient seen and examined, Tmax 100.2 at 4 PM however currently afebrile. Still complains of shortness of breath. 10/07/17-patient seen and examined, currently afebrile. Overnight patient had one episode of fall. Stable this morning with improvement of respiratory symptoms.. No diarrhea 10/08/17-patient seen and examined, Patient had episode of oxygen desaturation overnight for which a simple mask was placed 10/09/17-patient seen and examined,Although improved today, patient is still lethargic however he is able to follow command and requiring simple mask oxygen. Discharge was held yesterday 10/10/17-patient seen and examined, Patient with CO2 narcosis requiring BIPAP. Alert and oriented x 2 10-11-17 PATIENT REMAINS IN ICU-REQUIRING BIPAP ON AND OFF AND ATROPINE FOR HEART RATE DIPPING BELOW 40 WILL CONSULT PSYCHIATRY FOR MEDICATION ADJUSTMENT CONSULT CARDIOLOGY REGARDING BRADYCARDIA DW RN AND PT 10-12 patient seen and examined sitting in chair Cardiology did not feel there was anything to do other than monitor and they signed off Psychiatry saw the patient no note is available yet Sitting in chair States he is breathing better We'll advance diet Increase activity Still uses BiPAP last night and may need it today 10-13 only using BIPAP AT NIGHT SWITCH TO PO PREDNISONE DC IV SOLUMEDROL OK TO TRANSFER OUT OF ICU SEEN BY PSYCHIATRY- MEDS ADJUSTED AM LABS Objective Vitals Vital Signs Date Time Temp Pulse Resp B/P (MAP) Pulse Ox O2 Delivery O2 Flow Rate FiO2 10/13/17 08:16 94 Venturi Mask 6.00 50 10/13/17 06:00 46 10/13/17 04:00 97.6 44 19 118/60 (79) 93 10/13/17 04:00 44 10/13/17 03:21 96 40 10/13/17 02:00 48 10/13/17 00:24 93 40 10/13/17 00:00 48 10/13/17 00:00 97.4 48 12 120/76 (91) 94 10/12/17 22:00 95 40 10/12/17 22:00 53 10/12/17 20:00 66 10/12/17 20:00 98.8 66 25 106/59 (75) 96 10/12/17 20:00 94 Venturi Mask 10/12/17 19:00 95 Venturi Mask 35 10/12/17 18:00 60 10/12/17 16:00 97.1 60 16 108/64 (79) 90 10/12/17 16:00 60 10/12/17 14:00 60 10/12/17 12:00 60 10/12/17 12:00 98.0 53 20 106/59 (75) 91 I/O 10/12/17 10/12/17 10/12/17 10/13/17 10/13/17 10/13/17 07:00 15:00 23:00 07:00 15:00 23:00 Intake Total 0 ml 420 ml 760 ml Output Total 2200 ml 1500 ml Balance -2200 ml -1080 ml 760 ml Intake Oral 0 ml 420 ml 240 ml IV Total 520 ml Output Urine Total 2200 ml 1500 ml # Voids 3 3 # Bowel Movements 0 1 0 Result Diagram: 10/13/17 0441 10/13/17 0441 Other Results Laboratory Tests Test 10/10/17 20:49 10/11/17 01:43 10/12/17 05:02 10/13/17 04:41 Blood Gas Puncture Site RT RADIAL Blood Gas Patient Temperature 98.6 Blood Gas HCO3 32 mmol/L Blood Gas Base Excess 7.3 mmol/L Blood Gas Oxygen Saturation 96 % Arterial Blood pH 7.41 Arterial Blood Partial Pressure CO2 52 mmHg Arterial Blood Partial Pressure O2 94 mmHg Arterial Blood Oxygen Content 13.9 Vol % Arterial Blood Carboxyhemoglobin 1.2 % Arterial Blood Methemoglobin 0.9 % Blood Gas Hemoglobin 10.3 G/DL Oxygen Delivery Device CPAP Blood Gas Inspired Oxygen 35 % White Blood Count 4.6 TH/MM3 8.4 TH/MM3 9.0 TH/MM3 Red Blood Count 3.65 MIL/MM3 3.81 MIL/MM3 3.74 MIL/MM3 Hemoglobin 10.7 GM/DL 11.1 GM/DL 11.1 GM/DL Hematocrit 32.5 % 33.7 % 32.9 % Mean Corpuscular Volume 88.8 FL 88.5 FL 88.0 FL Mean Corpuscular Hemoglobin 29.4 PG 29.1 PG 29.6 PG Mean Corpuscular Hemoglobin Concent 33.1 % 32.9 % 33.6 % Red Cell Distribution Width 13.0 % 13.4 % 13.4 % Platelet Count 190 TH/MM3 269 TH/MM3 289 TH/MM3 Mean Platelet Volume 8.2 FL 8.7 FL 8.3 FL Neutrophils (%) (Auto) 85.7 % 87.0 % 84.1 % Lymphocytes (%) (Auto) 11.5 % 9.0 % 11.6 % Monocytes (%) (Auto) 2.6 % 3.9 % 4.1 % Eosinophils (%) (Auto) 0.1 % 0.0 % 0.0 % Basophils (%) (Auto) 0.1 % 0.1 % 0.2 % Neutrophils # (Auto) 3.9 TH/MM3 7.3 TH/MM3 7.6 TH/MM3 Lymphocytes # (Auto) 0.5 TH/MM3 0.8 TH/MM3 1.0 TH/MM3 Monocytes # (Auto) 0.1 TH/MM3 0.3 TH/MM3 0.4 TH/MM3 Eosinophils # (Auto) 0.0 TH/MM3 0.0 TH/MM3 0.0 TH/MM3 Basophils # (Auto) 0.0 TH/MM3 0.0 TH/MM3 0.0 TH/MM3 CBC Comment DIFF FINAL DIFF FINAL DIFF FINAL Differential Comment Blood Urea Nitrogen 14 MG/DL 16 MG/DL 18 MG/DL Creatinine 0.55 MG/DL 0.63 MG/DL 0.65 MG/DL Random Glucose 109 MG/DL 120 MG/DL 124 MG/DL Calcium Level 8.3 MG/DL 8.7 MG/DL 8.8 MG/DL Magnesium Level 2.3 MG/DL 2.5 MG/DL 2.2 MG/DL Sodium Level 139 MEQ/L 141 MEQ/L 136 MEQ/L Potassium Level 4.6 MEQ/L 4.2 MEQ/L 4.3 MEQ/L Chloride Level 101 MEQ/L 103 MEQ/L 103 MEQ/L Carbon Dioxide Level 31.0 MEQ/L 31.9 MEQ/L 29.3 MEQ/L Anion Gap 7 MEQ/L 6 MEQ/L 4 MEQ/L Estimat Glomerular Filtration Rate 161 ML/MIN 138 ML/MIN 133 ML/MIN Total Protein 6.6 GM/DL 6.6 GM/DL Albumin 2.6 GM/DL 2.7 GM/DL Phosphorus Level 1.7 MG/DL 2.8 MG/DL Alkaline Phosphatase 30 U/L 29 U/L Aspartate Amino Transf (AST/SGOT) 15 U/L 10 U/L Alanine Aminotransferase (ALT/SGPT) 22 U/L 22 U/L Total Bilirubin 0.3 MG/DL 0.2 MG/DL Hemoglobin A1c 5.3 % Free Thyroxine 0.72 NG/DL Thyroid Stimulating Hormone 3rd Gen 1.510 uIU/ML Valproic Acid (Depakene) Level 42 MCG/ML Imaging Last Impressions Gall Bladder Ultrasound 10/05/17 0000 Signed Impressions: Service Date/Time: Thursday, October 05, 2017 21:34 - CONCLUSION: 1. Multiple gallstones without biliary ductal dilatation. Mild fatty liver. Jose Alejandro Ramos MD Chest X-Ray 10/05/17 0000 Signed Impressions: Service Date/Time: Thursday, October 05, 2017 20:05 - CONCLUSION: 1. Minimal basilar atelectasis. Jose Alejandro Ramos MD Abdomen/Pelvis CT 10/05/17 0000 Signed Impressions: Service Date/Time: Thursday, October 05, 2017 21:04 - CONCLUSION: 1. No acute findings within the abdomen and pelvis. 2. Patchy airspace disease in the right lung base most characteristic of bronchopneumonia or aspiration. Previous fusion lower lumbar spine across the lumbosacral junction. Jose Alejandro Ramos MD Objective Remarks GENERAL: Awake alert oriented talkative and cooperative SKIN: Warm and dry. HEAD: Atraumatic. Normocephalic. EYES: Pupils equal and round. No scleral icterus. No injection or drainage. Extraocular muscles intact ENT: No nasal bleeding or discharge. Mucous membranes pink and moist. Tongue is midline NECK: Trachea midline. No JVD. Supple CARDIOVASCULAR: Regular rate and rhythm. S1-S2 no S3 or S4 RESPIRATORY: No accessory muscle use. Rhonchi and LESS wheezes scattered bilaterally GASTROINTESTINAL: Abdomen soft, non-tender, nondistended. Hepatic and splenic margins not palpable. MUSCULOSKELETAL: Extremities without clubbing, cyanosis, or edema. No obvious deformities. NEUROLOGICAL: Awake and alert. No obvious cranial nerve deficits. Motor grossly within normal limits. 4 out of 5 muscle strength in the arms and legs. Normal speech. PSYCHIATRIC: Appropriate mood and affect; insight and judgment normal. Much more awake and alert today Procedures none Medications and IVs Current Medications Sodium Chloride (NS Flush) 2 ml UNSCH PRN IV FLUSH FLUSH AFTER USING IV ACCESS Last administered on 10/05/17at 19:42; Start 10/05/17 at 19:30; Stop 10/08/17 at 19: 44; Status DC Morphine Sulfate (Morphine Inj) 4 mg ONCE ONCE IV PUSH Last administered on 10/05/17at 19:42; Start 10/05/17 at 19:45; Stop 10/05/17 at 19:46; Status DC Ondansetron HCl (Zofran Inj) 4 mg ONCE ONCE IV PUSH Last administered on at 19:42; Start 10/05/17 at 19:45; Stop 10/05/17 at 19:46; Status DC Sodium Chloride 1,000 ml @ 999 mls/hr BOLUS ONCE IV Last administered on at 19:42; Start 10/05/17 at 19:45; Stop 10/05/17 at 20:45; Status DC Iohexol (Omnipaque 350 Inj) 97 ml STK-MED ONCE IVCONTRAST Last administered on 10/05/17at 21:23; Start 10/05/17 at 21:23; Stop 10/05/17 at 21:24; Status DC Ampicillin Sodium/ Sulbactam Sodium 3 gm/Sodium Chloride 100 ml @ 200 mls/hr ONCE ONCE IV Last administered on 10/05/17at 23:01; Start 10/05/17 at 22:30; Stop 10/05/17 at 23:04; Status DC Pharmacy Profile Note 0 ml @ 0 mls/hr UNSCH OTHER ; Start 10/05/17 at 22:45 Cefepime HCl 1000 mg/Sodium Chloride 100 ml @ 200 mls/hr Q12H IV Last administered on 10/13/17at 08:29; Start 10/06/17 at 09:00 Albuterol/ Ipratropium (Duoneb Neb) 1 ampule Q4HR NEB PRN NEB SOB/WHEEZING Last administered on 10/12/17at 09:05; Start 10/05/17 at 22:45 Sodium Chloride 1,000 ml @ 100 mls/hr Q10H IV Last administered on 10/10/17at 02:56; Start 10/05/17 at 22:43; Status Future Hold Sodium Chloride (NS Flush) 2 ml UNSCH PRN IV FLUSH FLUSH AFTER USING IV ACCESS ; Start 10/05/17 at 22:45 Sodium Chloride (NS Flush) 2 ml BID IV FLUSH Last administered on 10/12/17at 20: 53; Start 10/06/17 at 09:00 Ondansetron HCl (Zofran Inj) 4 mg Q6H PRN IVP NAUSEA OR VOMITING Last administered on 10/06/17at 21:51; Start 10/05/17 at 22:45 Acetaminophen (Tylenol) 650 mg Q6H PRN PO FEVER/PAIN SCALE 1 TO 2 Last administered on 10/06/17at 16:57; Start 10/05/17 at 22:45 Acetaminophen/ Hydrocodone Bitart ([place] 5-325 Mg) 1 tab Q4H PRN PO PAIN SCALE 3 TO 5; Start 10/05/17 at 22:45 Morphine Sulfate (Morphine Inj) 2 mg Q3H PRN IV PUSH Pain 6-10; Start 10/05/17 at 22:45 Senna/Docusate Sodium (Beatriz-Colace) 1 tab BID PO Last administered on at 08:26; Start 10/06/17 at 09:00 Magnesium Hydroxide (Milk Of Magnesia Liq) 30 ml Q12H PRN PO Mild constipation ; Start 10/05/17 at 22:45 Sennosides (Senokot) 17.2 mg Q12H PRN PO Moderate constipation; Start 10/05/17 at 22:45 Bisacodyl (Dulcolax Supp) 10 mg DAILY PRN RECTAL SEVERE CONSITIPATION; Start at 22:45 Lactulose (Lactulose Liq) 30 ml DAILY PRN PO SEVERE CONSITIPATION; Start at 22:45 Aripiprazole (Abilify) 20 mg DAILY PO Last administered on 10/13/17at 08:25; Start 10/06/17 at 09:00 Aripiprazole (Abilify) 20 mg HS PO Last administered on 10/11/17at 20:17; Start 10/05/17 at 22:45; Stop 10/12/17 at 12:42; Status DC Budesonide/ Formoterol Fumarate (Symbicort 160-4.5 Mcg Inh) 2 puff BID INH Last administered on 10/12/17at 20:52; Start 10/06/17 at 09:00 Diazepam (Valium) 2 mg BID PO Last administered on 1/7/18at 20:21; Start at 09:00; Status Future Hold Diazepam (Valium) 10 mg HS PO Last administered on 10/07/17 20:21; Start at 22:45; Status Future Hold Divalproex Sodium (Depakote Er) 750 mg BID PO Last administered on 10/13/17 08 :23; Start 10/06/17 at 09:00 Fenofibrate (Tricor) 145 mg DAILY PO Last administered on 10/13/17 08:23; Start 10/06/17 at 09:00 Fluoxetine HCl (PROzac) 20 mg TID PO Last administered on 10/12/17 09:00; Start 10/06/17 at 09:00; Stop 10/12/17 at 12:42; Status DC Gabapentin (Neurontin) 800 mg BID PO Last administered on 10/13/17 08:24; Start 10/06/17 at 09:00 Haloperidol (Haldol) 0.5 mg TID PO Last administered on 10/07/17 18:10; Start 10/06/17 at 09:00; Status Future Hold Tamsulosin HCl (Flomax) 0.4 mg BID PO Last administered on 10/13/17 08:25; Start 10/06/17 at 09:00 Tiotropium [place] (Spiriva Inh) 18 mcg DAILY INH Last administered on at 09:00; Start 10/06/17 at 09:00 Zolpidem Tartrate (Ambien) 10 mg HS PRN PO INSOMNIA; Start 10/05/17 at 22:45 Vancomycin HCl 2500 mg/Sodium Chloride 525 ml @ 250 mls/hr ONCE ONCE IV Last administered on 10/06/17at 00:10; Start 10/06/17 at 01:00; Stop 10/06/17 at 03:05; Status DC Vancomycin HCl 1500 mg/Sodium Chloride 515 ml @ 257.5 mls/ hr Q12H IV Last administered on 10/07/17at 18:10; Start 10/06/17 at 18:00; Stop 10/07/17 at 18:52; Status DC Miscellaneous Information SPECIFIC LAB TO BE DRAWN:[facility]... ONCE ONCE .XX Last administered on 10/07/17at 18:00; Start 10/07/17 at 17:45; Stop 10/07/17 at 17:46; Status DC Vancomycin HCl 1750 mg/Sodium Chloride 517.5 ml @ 250 mls/hr Q8H IV Last administered on 10/08/17at 10:00; Start 10/08/17 at 02:00; Stop 10/08/17 at 20:26; Status DC Miscellaneous Information SPECIFIC LAB TO BE LEOLA... ONCE ONCE .XX ; Start at 19:00; Stop 10/07/17 at 19:01; Status DC Miscellaneous Information SPECIFIC LAB TO BE LEOLA... ONCE ONCE .XX ; Start at 17:45; Stop 10/08/17 at 17:46; Status DC Vancomycin HCl 2000 mg/Sodium Chloride 520 ml @ 250 mls/hr Q12H IV Last administered on 10/12/17at 09:54; Start 10/08/17 at 22:00; Stop 10/12/17 at 11:49 ; Status DC Miscellaneous Information SPECIFIC LAB TO BE LEOLA... ONCE ONCE .XX Last administered on 10/10/17at 09:45; Start 10/10/17 at 09:45; Stop 10/10/17 at 09:46 ; Status DC Methylprednisolone Sodium Succinate (SoluMEDROL INJ) 40 mg Q8HR IV PUSH Last administered on 10/13/17at 05:10; Start 10/10/17 at 14:00; Stop 10/13/17 at 09:12 ; Status DC Atropine Sulfate (Atropine Inj) 0.5 mg UNSCH X1 PRN IV PUSH bradycardia<40 or symptomatic Last administered on 10/11/17at 09:32; Start 10/11/17 at 01:00; Stop 10/14/17 at 00:59 Clonidine (Catapres) 0.1 mg Q4H PRN PO SBP>160, DBP>90; Start 10/11/17 at 09:00 Vancomycin HCl 2250 mg/Sodium Chloride 522.5 ml @ 250 mls/hr Q12H IV Last administered on 10/12/17at 21:47; Start 10/12/17 at 22:00 Miscellaneous Information SPECIFIC LAB TO BE LEOLA... ONCE ONCE .XX ; Start 10/14 at 09:45; Stop 10/14/17 at 09:46 Fluoxetine HCl (PROzac) 20 mg DAILY PO Last administered on 10/13/17at 08:24; Start 10/13/17 at 09:00 Prednisone (Deltasone) 20 mg BID PO ; Start 10/13/17 at 21:00 A/P Problem List: (1) Sepsis ICD Code: A41.9 - Sepsis, unspecified organism Status: Resolved (2) Gastroenteritis ICD Code: K52.9 - Noninfective gastroenteritis and colitis, unspecified (3) Hyperkalemia ICD Code: E87.5 - Hyperkalemia (4) Respiratory failure with hypoxia and hypercapnia ICD Code: J96.91 - Respiratory failure, unspecified with hypoxia; J96.92 - Respiratory failure, unspecified with hypercapnia (5) CO2 narcosis ICD Code: R06.89 - Other abnormalities of breathing Assessment and Plan 47 year-old man with 1. Sepsis: Resolved 2. PNA: CT Abd/Pelvis w/ RLL patchy airspace disease likely bronchopneumonia or aspiration. Currently on cefepime IV. DuoNeb prn as needed. PATIENT WORSENED AND WAS TRANSFERRED TO ICU 3. Gastroenteritis: Improved and Gallbladder US w/ no acute findings. Analgesics/antiemetics as needed. 4. Hyperkalemia: Resolved 5. Cholelithiasis: Outpatient follow-up will general surgery 6. Other chronic medical conditions: Continue outpatient medications 7. Toxic encephalopathy: Resolved; continue to hold all [employer] depressant medication 8. Respiratory failure with hypoxia and hypercapnia CO2 narcosis Start BiPAP DuoNeb scheduled and when necessary switch to oral prednisone today Consult pulmonary medicine has been seen by pulmonary already HAVING SYMPTOMATIC BRADYCARDIA- NEEDING ATROPINE FOR HEART RATE UNDER 40 has resolved now-- [facility] RN CONSULT PSYCHIATRY TO ADJUST MEDS --THEY have seen and ADJUSTED HIS MEDICATIONS CONSULT CARDIO REGARDING BRADYCARDIA-cardiology recommended no beta blockers or rate controlling agents which she is not on Advance diet Physical therapy and occupational therapy TRANSFER OUT OF ICU AM LABS Discharge Planning TRANSFER OUT OF ICU Trenton Starr DO Oct 13, 2017 10:30
[2017-10-13] MEDS: VANCOMYCIN INJ 2,250 MG in SODIUM CHLORID 0.9% 500 ML INJ 500 ML IV SCH ×2 (10:50→22:51)
--- NOTE | 2017-10-13 14:10 | HHI.PR ---
Subjective Remarks better Objective Vital Signs Date Time Temp Pulse Resp B/P (MAP) Pulse Ox O2 Delivery O2 Flow Rate FiO2 10/13/17 12:00 48 10/13/17 12:00 48 18 104/57 (73) 94 10/13/17 10:00 56 10/13/17 08:16 94 Venturi Mask 6.00 50 10/13/17 08:00 98.0 46 17 126/72 (90) 94 10/13/17 08:00 44 10/13/17 07:15 95 Venturi Mask 35 10/13/17 06:00 46 10/13/17 04:00 97.6 44 19 118/60 (79) 93 10/13/17 04:00 44 10/13/17 03:21 96 40 10/13/17 02:00 48 10/13/17 00:24 93 40 10/13/17 00:00 48 10/13/17 00:00 97.4 48 12 120/76 (91) 94 10/12/17 22:00 95 40 10/12/17 22:00 53 10/12/17 20:00 66 10/12/17 20:00 98.8 66 25 106/59 (75) 96 10/12/17 20:00 94 Venturi Mask 10/12/17 19:00 95 Venturi Mask 35 10/12/17 18:00 60 10/12/17 16:00 97.1 60 16 108/64 (79) 90 10/12/17 16:00 60 I/O 10/12/17 10/12/17 10/12/17 10/13/17 10/13/17 10/13/17 07:00 15:00 23:00 07:00 15:00 23:00 Intake Total 0 ml 420 ml 760 ml Output Total 2200 ml 1500 ml Balance -2200 ml -1080 ml 760 ml Intake Oral 0 ml 420 ml 240 ml IV Total 520 ml Output Urine Total 2200 ml 1500 ml # Voids 3 3 # Bowel Movements 0 1 0 Result Diagram: 10/13/1744010/13/17440 Objective Remarks Physical Exam GENERAL: This is a well-nourished, well-developed patient, in no apparent distress. SKIN: No rashes, ecchymoses or lesions. Cool and dry. HEAD: Atraumatic. Normocephalic. No temporal or scalp tenderness. off bipap EYES: Pupils equal round and reactive. Extraocular motions intact. No scleral icterus. No injection or drainage. ENT: Nose without bleeding, purulent drainage or septal hematoma. Throat without erythema, tonsillar hypertrophy or exudate. Uvula midline. Airway patent. NECK: Trachea midline. No JVD or lymphadenopathy. Supple, nontender, no meningeal signs. CARDIOVASCULAR: Regular rate and rhythm without murmurs, gallops, or rubs. RESPIRATORY: no wheezing GASTROINTESTINAL: Abdomen soft, non-tender, nondistended. No hepato-splenomegaly , or palpable masses. No guarding. MUSCULOSKELETAL: Extremities without clubbing, cyanosis, or edema. No joint tenderness, effusion, or edema noted. No calf tenderness. Negative Homans sign bilaterally. NEUROLOGICAL: Awake and alert. Cranial nerves II through XII intact. Motor and sensory grossly within normal limits. Five out of 5 muscle strength in all muscle groups. Normal speech. Laboratory Assessment and Plan Assessment and Plan PNA Hypercapnic resp failure Obesity cont current plan oral prednisone in am cont bipap prn will likely need outpxt PSG wean off fio2 for o2 sat more than 88%. ok to leave icu I will sign off F/U in office Thank you call if needed . [phone] cell Quang Hernandez MD Oct 13, 2017 14:10
[2017-10-13] MEDS: predniSONE 20 MG TAB PO SCH (21:09)
[2017-10-14] VITALS (14 sets, daily range): BP systolic 94–101; BP diastolic 50–73; PULSE 40–54; RESP 12–24; TEMP 97–98.8; O2SAT 94–99
[2017-10-14 05:54] LABS: AUTOMATED NEUTROPHIL # 4.8 TH/MM3 (1.8-7.7); BASOPHIL % 0.2 % (0.0-2.0); EOSINOPHIL % 0.1 % (0.0-4.0); HEMATOCRIT 34.7 % (39.0-51.0); HEMOGLOBIN 11.2 GM/DL (13.0-17.0); LYMPH % 17.1 % (9.0-44.0); LYMPHOCYTE # 1.1 TH/MM3 (1.0-4.8); MEAN CELL VOLUME 88.7 FL (80.0-100.0); MEAN CORPUSCULAR HEMOGLOBIN 28.7 PG (27.0-34.0); MEAN CORPUSCULAR HGB CONC 32.3 % (32.0-36.0); MEAN PLATELET VOLUME 8.9 FL (7.0-11.0); MONO % 6.2 % (0.0-8.0); MONOCYTE # 0.4 TH/MM3 (0-0.9); NEUT % 76.4 % (16.0-70.0); PLATELET COUNT 280 TH/MM3 (150-450); RED BLOOD COUNT 3.91 MIL/MM3 (4.50-5.90); RED CELL DISTRIBUTION WIDTH 13.2 % (11.6-17.2); WHITE BLOOD COUNT 6.3 TH/MM3 (4.0-11.0)
[2017-10-14 06:05] LABS: ALBUMIN 2.7 GM/DL (3.4-5.0); AST (GOT) 15 U/L (15-37); BICARBONATE 28.2 MEQ/L (21.0-32.0); BLOOD UREA NITROGEN 20 MG/DL (7-18); CALCIUM 8.6 MG/DL (8.5-10.1); CHLORIDE 104 MEQ/L (98-107); CREATININE 0.64 MG/DL (0.60-1.30); GLOMERULAR FILTRATION RATE 135 ML/MIN (>89); GLUCOSE,RANDOM 107 MG/DL (74-106); SODIUM (NA) 138 MEQ/L (136-145)
[2017-10-14 06:09] LABS: ALKALINE PHOSPHATASE 29 U/L (45-117); ALT (GPT) 22 U/L (12-78); PHOSPHORUS 2.8 MG/DL (2.5-4.9); TOTAL BILIRUBIN ADULT 0.2 MG/DL (0.2-1.0); TOTAL PROTEIN 6.2 GM/DL (6.4-8.2)
[2017-10-14] MEDS: BUDESONIDE-FORMOTEROL 160/4.5 MCG INHALER INH SCH ×2 (09:00→21:35)
[2017-10-14] MEDS: DOCUSATE SODIUM 50 MG/SENNA 8.6 MG TAB PO SCH ×2 (09:00→21:18)
[2017-10-14] MEDS: CEFEPIME INJ 1,000 MG in SODIUM CHLORIDE 0.9% INJ 100 ML IV SCH ×2 (09:00→21:17)
[2017-10-14] MEDS ORDERED: PHARMACY ORDERED LAB ONE (09:45)
[2017-10-14] MEDS: GABAPENTIN 400 MG CAP PO SCH ×2 (09:58→21:18)
[2017-10-14] MEDS: predniSONE 20 MG TAB PO SCH ×2 (09:58→21:00)
[2017-10-14] MEDS: DIVALPROEX SODIUM E.R. 250 MG TAB PO SCH ×2 (09:58→21:19)
[2017-10-14] MEDS: FENOFIBRATE 145 MG TAB PO SCH (09:58)
[2017-10-14] MEDS: TAMSULOSIN HCL 0.4 MG CAP PO SCH ×2 (09:58→21:17)
[2017-10-14] MEDS: FLUoxetine HCL 20 MG CAP PO SCH (09:58)
[2017-10-14] MEDS: TIOTROPIUM BROMIDE 18 MCG INH INH SCH (09:58)
[2017-10-14] MEDS: SODIUM CHLORIDE 0.9% FLUSH 10 ML FLUSH IV FLUSH SCH ×2 (09:59→21:16)
--- NOTE | 2017-10-14 10:35 | HHI.PR ---
Subjective Remarks Follow-up sepsis/community acquired bacterial pneumonia 10/06/17-patient seen and examined, Tmax 100.2 at 4 PM however currently afebrile. Still complains of shortness of breath. 10/07/17-patient seen and examined, currently afebrile. Overnight patient had one episode of fall. Stable this morning with improvement of respiratory symptoms.. No diarrhea 10/08/17-patient seen and examined, Patient had episode of oxygen desaturation overnight for which a simple mask was placed 10/09/17-patient seen and examined,Although improved today, patient is still lethargic however he is able to follow command and requiring simple mask oxygen. Discharge was held yesterday 10/10/17-patient seen and examined, Patient with CO2 narcosis requiring BIPAP. Alert and oriented x 2 10-11-17 PATIENT REMAINS IN ICU-REQUIRING BIPAP ON AND OFF AND ATROPINE FOR HEART RATE DIPPING BELOW 40 WILL CONSULT PSYCHIATRY FOR MEDICATION ADJUSTMENT CONSULT CARDIOLOGY REGARDING BRADYCARDIA DW RN AND PT 10-12 patient seen and examined sitting in chair Cardiology did not feel there was anything to do other than monitor and they signed off Psychiatry saw the patient no note is available yet Sitting in chair States he is breathing better We'll advance diet Increase activity Still uses BiPAP last night and may need it today 10-13 only using BIPAP AT NIGHT SWITCH TO PO PREDNISONE DC IV SOLUMEDROL OK TO TRANSFER OUT OF ICU SEEN BY PSYCHIATRY- MEDS ADJUSTED 10-14 still remains on 4 liters try to move out of icu if bed available patient not on oxygen at home dw rn and pt needs aggressive pt and ot am labs still some coughing lives in a half-way Objective Vitals Vital Signs Date Time Temp Pulse Resp B/P (MAP) Pulse Ox O2 Delivery O2 Flow Rate FiO2 10/14/17 10:23 94 Nasal Cannula 4.00 10/14/17 08:10 96 Nasal Cannula 4.00 10/14/17 08:00 97.0 40 12 100/73 (82) 97 10/14/17 08:00 40 10/14/17 07:17 99 35 10/14/17 07:00 94 Bi-Pap 35 10/14/17 06:00 42 10/14/17 04:13 97 35 10/14/17 04:00 97.2 50 24 97 10/14/17 04:00 50 10/14/17 02:00 46 10/14/17 00:45 99 35 10/14/17 00:00 97.4 46 20 94/54 (67) 95 10/14/17 00:00 46 10/13/17 22:00 55 10/13/17 21:29 97 35 10/13/17 20:00 52 10/13/17 20:00 98.3 52 18 97/57 (70) 98 10/13/17 19:00 93 Venturi Mask 35 10/13/17 18:10 65 10/13/17 16:00 45 10/13/17 16:00 45 17 96/57 (70) 93 10/13/17 16:00 97.9 10/13/17 14:00 50 10/13/17 12:00 48 10/13/17 12:00 48 18 104/57 (73) 94 I/O 10/13/17 10/13/17 10/13/17 10/14/17 10/14/17 10/14/17 07:00 15:00 23:00 07:00 15:00 23:00 Intake Total 760 ml 720 ml Output Total 1075 ml Balance 760 ml 720 ml -1075 ml Intake Oral 240 ml 620 ml IV Total 520 ml 100 ml Output Urine Total 1075 ml # Voids 3 5 2 # Bowel Movements 0 4 0 Result Diagram: 10/14/17 0435 10/14/17 0435 Other Results Laboratory Tests Test 10/12/17 05:02 10/13/17 04:41 10/14/17 04:35 White Blood Count 8.4 TH/MM3 9.0 TH/MM3 6.3 TH/MM3 Red Blood Count 3.81 MIL/MM3 3.74 MIL/MM3 3.91 MIL/MM3 Hemoglobin 11.1 GM/DL 11.1 GM/DL 11.2 GM/DL Hematocrit 33.7 % 32.9 % 34.7 % Mean Corpuscular Volume 88.5 FL 88.0 FL 88.7 FL Mean Corpuscular Hemoglobin 29.1 PG 29.6 PG 28.7 PG Mean Corpuscular Hemoglobin Concent 32.9 % 33.6 % 32.3 % Red Cell Distribution Width 13.4 % 13.4 % 13.2 % Platelet Count 269 TH/MM3 289 TH/MM3 280 TH/MM3 Mean Platelet Volume 8.7 FL 8.3 FL 8.9 FL Neutrophils (%) (Auto) 87.0 % 84.1 % 76.4 % Lymphocytes (%) (Auto) 9.0 % 11.6 % 17.1 % Monocytes (%) (Auto) 3.9 % 4.1 % 6.2 % Eosinophils (%) (Auto) 0.0 % 0.0 % 0.1 % Basophils (%) (Auto) 0.1 % 0.2 % 0.2 % Neutrophils # (Auto) 7.3 TH/MM3 7.6 TH/MM3 4.8 TH/MM3 Lymphocytes # (Auto) 0.8 TH/MM3 1.0 TH/MM3 1.1 TH/MM3 Monocytes # (Auto) 0.3 TH/MM3 0.4 TH/MM3 0.4 TH/MM3 Eosinophils # (Auto) 0.0 TH/MM3 0.0 TH/MM3 0.0 TH/MM3 Basophils # (Auto) 0.0 TH/MM3 0.0 TH/MM3 0.0 TH/MM3 CBC Comment DIFF FINAL DIFF FINAL DIFF FINAL Differential Comment Blood Urea Nitrogen 16 MG/DL 18 MG/DL 20 MG/DL Creatinine 0.63 MG/DL 0.65 MG/DL 0.64 MG/DL Random Glucose 120 MG/DL 124 MG/DL 107 MG/DL Total Protein 6.6 GM/DL 6.6 GM/DL 6.2 GM/DL Albumin 2.6 GM/DL 2.7 GM/DL 2.7 GM/DL Calcium Level 8.7 MG/DL 8.8 MG/DL 8.6 MG/DL Phosphorus Level 1.7 MG/DL 2.8 MG/DL 2.8 MG/DL Magnesium Level 2.5 MG/DL 2.2 MG/DL 2.0 MG/DL Alkaline Phosphatase 30 U/L 29 U/L 29 U/L Aspartate Amino Transf (AST/SGOT) 15 U/L 10 U/L 15 U/L Alanine Aminotransferase (ALT/SGPT) 22 U/L 22 U/L 22 U/L Total Bilirubin 0.3 MG/DL 0.2 MG/DL 0.2 MG/DL Sodium Level 141 MEQ/L 136 MEQ/L 138 MEQ/L Potassium Level 4.2 MEQ/L 4.3 MEQ/L 4.0 MEQ/L Chloride Level 103 MEQ/L 103 MEQ/L 104 MEQ/L Carbon Dioxide Level 31.9 MEQ/L 29.3 MEQ/L 28.2 MEQ/L Anion Gap 6 MEQ/L 4 MEQ/L 6 MEQ/L Estimat Glomerular Filtration Rate 138 ML/MIN 133 ML/MIN 135 ML/MIN Hemoglobin A1c 5.3 % Free Thyroxine 0.72 NG/DL Thyroid Stimulating Hormone 3rd Gen 1.510 uIU/ML Valproic Acid (Depakene) Level 42 MCG/ML Imaging Last Impressions Gall Bladder Ultrasound 10/05/17 0000 Signed Impressions: Service Date/Time: Thursday, October 05, 2017 21:34 - CONCLUSION: 1. Multiple gallstones without biliary ductal dilatation. Mild fatty liver. Jose Alejandro Ramos MD Chest X-Ray 10/05/17 0000 Signed Impressions: Service Date/Time: Thursday, October 05, 2017 20:05 - CONCLUSION: 1. Minimal basilar atelectasis. Jose Alejandro Ramos MD Abdomen/Pelvis CT 10/05/17 0000 Signed Impressions: Service Date/Time: Thursday, October 05, 2017 21:04 - CONCLUSION: 1. No acute findings within the abdomen and pelvis. 2. Patchy airspace disease in the right lung base most characteristic of bronchopneumonia or aspiration. Previous fusion lower lumbar spine across the lumbosacral junction. Jose Alejandro Ramos MD Objective Remarks GENERAL: Awake alert oriented talkative and cooperative SKIN: Warm and dry. HEAD: Atraumatic. Normocephalic. EYES: Pupils equal and round. No scleral icterus. No injection or drainage. Extraocular muscles intact ENT: No nasal bleeding or discharge. Mucous membranes pink and moist. Tongue is midline NECK: Trachea midline. No JVD. Supple CARDIOVASCULAR: Regular rate and rhythm. S1-S2 no S3 or S4 RESPIRATORY: No accessory muscle use. Rhonchi and LESS wheezes scattered bilaterally GASTROINTESTINAL: Abdomen soft, non-tender, nondistended. Hepatic and splenic margins not palpable. MUSCULOSKELETAL: Extremities without clubbing, cyanosis, or edema. No obvious deformities. NEUROLOGICAL: Awake and alert. No obvious cranial nerve deficits. Motor grossly within normal limits. 4 out of 5 muscle strength in the arms and legs. Normal speech. PSYCHIATRIC: Appropriate mood and affect; insight and judgment normal. Much more awake and alert today Procedures none Medications and IVs Current Medications Sodium Chloride (NS Flush) 2 ml UNSCH PRN IV FLUSH FLUSH AFTER USING IV ACCESS Last administered on 10/05/17at 19:42; Start 10/05/17 at 19:30; Stop 10/08/17 at 19: 44; Status DC Morphine Sulfate (Morphine Inj) 4 mg ONCE ONCE IV PUSH Last administered on 10/05/17at 19:42; Start 10/05/17 at 19:45; Stop 10/05/17 at 19:46; Status DC Ondansetron HCl (Zofran Inj) 4 mg ONCE ONCE IV PUSH Last administered on at 19:42; Start 10/05/17 at 19:45; Stop 10/05/17 at 19:46; Status DC Sodium Chloride 1,000 ml @ 999 mls/hr BOLUS ONCE IV Last administered on at 19:42; Start 10/05/17 at 19:45; Stop 10/05/17 at 20:45; Status DC Iohexol (Omnipaque 350 Inj) 97 ml STK-MED ONCE IVCONTRAST Last administered on 10/05/17at 21:23; Start 10/05/17 at 21:23; Stop 10/05/17 at 21:24; Status DC Ampicillin Sodium/ Sulbactam Sodium 3 gm/Sodium Chloride 100 ml @ 200 mls/hr ONCE ONCE IV Last administered on 10/05/17at 23:01; Start 10/05/17 at 22:30; Stop 10/05/17 at 23:04; Status DC Pharmacy Profile Note 0 ml @ 0 mls/hr UNSCH OTHER ; Start 10/05/17 at 22:45 Cefepime HCl 1000 mg/Sodium Chloride 100 ml @ 200 mls/hr Q12H IV Last administered on 10/13/17at 21:09; Start 10/06/17 at 09:00 Albuterol/ Ipratropium (Duoneb Neb) 1 ampule Q4HR NEB PRN NEB SOB/WHEEZING Last administered on 10/12/17at 09:05; Start 10/05/17 at 22:45 Sodium Chloride 1,000 ml @ 100 mls/hr Q10H IV Last administered on 10/10/17at 02:56; Start 10/05/17 at 22:43; Status Future Hold Sodium Chloride (NS Flush) 2 ml UNSCH PRN IV FLUSH FLUSH AFTER USING IV ACCESS ; Start 10/05/17 at 22:45 Sodium Chloride (NS Flush) 2 ml BID IV FLUSH Last administered on 10/14/17at 09: 59; Start 10/06/17 at 09:00 Ondansetron HCl (Zofran Inj) 4 mg Q6H PRN IVP NAUSEA OR VOMITING Last administered on 10/06/17at 21:51; Start 10/05/17 at 22:45 Acetaminophen (Tylenol) 650 mg Q6H PRN PO FEVER/PAIN SCALE 1 TO 2 Last administered on 10/06/17at 16:57; Start 10/05/17 at 22:45 Acetaminophen/ Hydrocodone Bitart ([place] 5-325 Mg) 1 tab Q4H PRN PO PAIN SCALE 3 TO 5; Start 10/05/17 at 22:45 Morphine Sulfate (Morphine Inj) 2 mg Q3H PRN IV PUSH Pain 6-10; Start 10/05/17 at 22:45 Senna/Docusate Sodium (Beatriz-Colace) 1 tab BID PO Last administered on at 08:26; Start 10/06/17 at 09:00 Magnesium Hydroxide (Milk Of Magnesia Liq) 30 ml Q12H PRN PO Mild constipation ; Start 10/05/17 at 22:45 Sennosides (Senokot) 17.2 mg Q12H PRN PO Moderate constipation; Start 10/05/17 at 22:45 Bisacodyl (Dulcolax Supp) 10 mg DAILY PRN RECTAL SEVERE CONSITIPATION; Start at 22:45 Lactulose (Lactulose Liq) 30 ml DAILY PRN PO SEVERE CONSITIPATION; Start at 22:45 Aripiprazole (Abilify) 20 mg DAILY PO Last administered on 10/14/17at 09:58; Start 10/06/17 at 09:00 Aripiprazole (Abilify) 20 mg HS PO Last administered on 10/11/17at 20:17; Start 10/05/17 at 22:45; Stop 10/12/17 at 12:42; Status DC Budesonide/ Formoterol Fumarate (Symbicort 160-4.5 Mcg Inh) 2 puff BID INH Last administered on 10/14/17at 09:00; Start 10/06/17 at 09:00 Diazepam (Valium) 2 mg BID PO Last administered on 10/07/17 20:21; Start at 09:00; Status Future Hold Diazepam (Valium) 10 mg HS PO Last administered on 10/07/17 20:21; Start at 22:45; Status Future Hold Divalproex Sodium (Depakote Er) 750 mg BID PO Last administered on 10/14/17 09 :58; Start 10/06/17 at 09:00 Fenofibrate (Tricor) 145 mg DAILY PO Last administered on 10/14/17 09:58; Start 10/06/17 at 09:00 Fluoxetine HCl (PROzac) 20 mg TID PO Last administered on 10/12/17 09:00; Start 10/06/17 at 09:00; Stop 10/12/17 at 12:42; Status DC Gabapentin (Neurontin) 800 mg BID PO Last administered on 10/14/17 09:58; Start 10/06/17 at 09:00 Haloperidol (Haldol) 0.5 mg TID PO Last administered on 10/07/17at 18:10; Start 10/06/17 at 09:00; Status Future Hold Tamsulosin HCl (Flomax) 0.4 mg BID PO Last administered on 10/14/17 09:58; Start 10/06/17 at 09:00 Tiotropium [place] (Spiriva Inh) 18 mcg DAILY INH Last administered on at 09:58; Start 10/06/17 at 09:00 Zolpidem Tartrate (Ambien) 10 mg HS PRN PO INSOMNIA; Start 10/05/17 at 22:45 Vancomycin HCl 2500 mg/Sodium Chloride 525 ml @ 250 mls/hr ONCE ONCE IV Last administered on 10/06/17at 00:10; Start 10/06/17 at 01:00; Stop 10/06/17 at 03:05; Status DC Vancomycin HCl 1500 mg/Sodium Chloride 515 ml @ 257.5 mls/ hr Q12H IV Last administered on 10/07/17at 18:10; Start 10/06/17 at 18:00; Stop 10/07/17 at 18:52; Status DC Miscellaneous Information SPECIFIC LAB TO BE DRAWN:[facility]... ONCE ONCE .XX Last administered on 10/07/17at 18:00; Start 10/07/17 at 17:45; Stop 10/07/17 at 17:46; Status DC Vancomycin HCl 1750 mg/Sodium Chloride 517.5 ml @ 250 mls/hr Q8H IV Last administered on 10/08/17at 10:00; Start 10/08/17 at 02:00; Stop 10/08/17 at 20:26; Status DC Miscellaneous Information SPECIFIC LAB TO BE [facility]... ONCE ONCE .XX ; Start at 19:00; Stop 10/07/17 at 19:01; Status DC Miscellaneous Information SPECIFIC LAB TO BE [facility]... ONCE ONCE .XX ; Start at 17:45; Stop 10/08/17 at 17:46; Status DC Vancomycin HCl 2000 mg/Sodium Chloride 520 ml @ 250 mls/hr Q12H IV Last administered on 10/12/17at 09:54; Start 10/08/17 at 22:00; Stop 10/12/17 at 11:49 ; Status DC Miscellaneous Information SPECIFIC LAB TO BE [facility]... ONCE ONCE .XX Last administered on 10/10/17at 09:45; Start 10/10/17 at 09:45; Stop 10/10/17 at 09:46 ; Status DC Methylprednisolone Sodium Succinate (SoluMEDROL INJ) 40 mg Q8HR IV PUSH Last administered on 10/13/17at 05:10; Start 10/10/17 at 14:00; Stop 10/13/17 at 09:12 ; Status DC Atropine Sulfate (Atropine Inj) 0.5 mg UNSCH X1 PRN IV PUSH bradycardia<40 or symptomatic Last administered on 10/11/17at 09:32; Start 10/11/17 at 01:00; Stop 10/14/17 at 00:59; Status DC Clonidine (Catapres) 0.1 mg Q4H PRN PO SBP>160, DBP>90; Start 10/11/17 at 09:00 Vancomycin HCl 2250 mg/Sodium Chloride 522.5 ml @ 250 mls/hr Q12H IV Last administered on 10/13/17at 22:51; Start 10/12/17 at 22:00 Miscellaneous Information SPECIFIC LAB TO BE [facility]... ONCE ONCE .XX ; Start 10/14 at 09:45; Stop 10/14/17 at 09:46; Status DC Fluoxetine HCl (PROzac) 20 mg DAILY PO Last administered on 10/14/17at 09:58; Start 10/13/17 at 09:00 Prednisone (Deltasone) 20 mg BID PO Last administered on 10/14/17at 09:58; Start 10/13/17 at 21:00 A/P Problem List: (1) Sepsis ICD Code: A41.9 - Sepsis, unspecified organism Status: Resolved (2) Gastroenteritis ICD Code: K52.9 - Noninfective gastroenteritis and colitis, unspecified (3) Hyperkalemia ICD Code: E87.5 - Hyperkalemia (4) Respiratory failure with hypoxia and hypercapnia ICD Code: J96.91 - Respiratory failure, unspecified with hypoxia; J96.92 - Respiratory failure, unspecified with hypercapnia (5) CO2 narcosis ICD Code: R06.89 - Other abnormalities of breathing Assessment and Plan 47 year-old man with 1. Sepsis: Resolved 2. PNA: CT Abd/Pelvis w/ RLL patchy airspace disease likely bronchopneumonia or aspiration. Currently on cefepime IV. DuoNeb prn as needed. PATIENT WORSENED AND WAS TRANSFERRED TO ICU 3. Gastroenteritis: Improved and Gallbladder US w/ no acute findings. Analgesics/antiemetics as needed. 4. Hyperkalemia: Resolved 5. Cholelithiasis: Outpatient follow-up will general surgery 6. Other chronic medical conditions: Continue outpatient medications 7. Toxic encephalopathy: Resolved; continue to hold all [employer] depressant medication 8. Respiratory failure with hypoxia and hypercapnia CO2 narcosis Start BiPAP DuoNeb scheduled and when necessary switch to oral prednisone today Consult pulmonary medicine has been seen by pulmonary already HAVING SYMPTOMATIC BRADYCARDIA- NEEDING ATROPINE FOR HEART RATE UNDER 40 has resolved now-- [facility] RN CONSULT PSYCHIATRY TO ADJUST MEDS --THEY have seen and ADJUSTED HIS MEDICATIONS CONSULT CARDIO REGARDING BRADYCARDIA-cardiology recommended no beta blockers or rate controlling agents which she is not on Advance diet Physical therapy and occupational therapy TRANSFER OUT OF ICU AM LABS NEEDS PT AND OT Discharge Planning TRANSFER OUT OF ICU Trenton Starr DO Oct 14, 2017 10:35
[2017-10-14] MEDS: VANCOMYCIN INJ 2,250 MG in SODIUM CHLORID 0.9% 500 ML INJ 500 ML IV SCH ×2 (10:48→22:11)
[2017-10-15] VITALS (8 sets, daily range): BP systolic 92–115; BP diastolic 51–63; PULSE 42–69; RESP 12–23; TEMP 97.4–98.6; O2SAT 90–95
[2017-10-15 05:42] LABS: AUTOMATED NEUTROPHIL # 5.8 TH/MM3 (1.8-7.7); BASOPHIL % 0.1 % (0.0-2.0); EOSINOPHIL % 0.3 % (0.0-4.0); HEMATOCRIT 34.1 % (39.0-51.0); HEMOGLOBIN 11.3 GM/DL (13.0-17.0); LYMPH % 13.8 % (9.0-44.0); MEAN CELL VOLUME 88.5 FL (80.0-100.0); MEAN CORPUSCULAR HEMOGLOBIN 29.5 PG (27.0-34.0); MEAN CORPUSCULAR HGB CONC 33.3 % (32.0-36.0); MONO % 4.9 % (0.0-8.0); MONOCYTE # 0.4 TH/MM3 (0-0.9); NEUT % 80.9 % (16.0-70.0); PLATELET COUNT 305 TH/MM3 (150-450); RED BLOOD COUNT 3.85 MIL/MM3 (4.50-5.90); RED CELL DISTRIBUTION WIDTH 13.4 % (11.6-17.2); WHITE BLOOD COUNT 7.1 TH/MM3 (4.0-11.0)
[2017-10-15 06:07] LABS: ALKALINE PHOSPHATASE 29 U/L (45-117); PHOSPHORUS 2.6 MG/DL (2.5-4.9); TOTAL BILIRUBIN ADULT 0.3 MG/DL (0.2-1.0); TOTAL PROTEIN 6.5 GM/DL (6.4-8.2)
[2017-10-15 06:09] LABS: ALBUMIN 2.8 GM/DL (3.4-5.0); ALT (GPT) 24 U/L (12-78); AST (GOT) 27 U/L (15-37); BLOOD UREA NITROGEN 18 MG/DL (7-18); CALCIUM 8.6 MG/DL (8.5-10.1); CHLORIDE 103 MEQ/L (98-107); CREATININE 0.61 MG/DL (0.60-1.30); GLOMERULAR FILTRATION RATE 143 ML/MIN (>89); GLUCOSE,RANDOM 111 MG/DL (74-106); MAGNESIUM 2.1 MG/DL (1.5-2.5); SODIUM (NA) 139 MEQ/L (136-145)
[2017-10-15] MEDS: GABAPENTIN 400 MG CAP PO SCH ×2 (08:37→20:30)
[2017-10-15] MEDS: DOCUSATE SODIUM 50 MG/SENNA 8.6 MG TAB PO SCH (08:37)
[2017-10-15] MEDS: TAMSULOSIN HCL 0.4 MG CAP PO SCH ×2 (08:37→20:31)
[2017-10-15] MEDS: TIOTROPIUM BROMIDE 18 MCG INH INH SCH (08:37)
[2017-10-15] MEDS: predniSONE 20 MG TAB PO SCH ×2 (08:37→20:31)
[2017-10-15] MEDS: FENOFIBRATE 145 MG TAB PO SCH (08:37)
[2017-10-15] MEDS: FLUoxetine HCL 20 MG CAP PO SCH (08:37)
[2017-10-15] MEDS: SODIUM CHLORIDE 0.9% FLUSH 10 ML FLUSH IV FLUSH SCH (08:38)
[2017-10-15] MEDS: DIVALPROEX SODIUM E.R. 250 MG TAB PO SCH ×2 (08:38→20:30)
[2017-10-15] MEDS: CEFEPIME INJ 1,000 MG in SODIUM CHLORIDE 0.9% INJ 100 ML IV SCH (08:38)
[2017-10-15] MEDS: BUDESONIDE-FORMOTEROL 160/4.5 MCG INHALER INH SCH ×2 (08:38→20:30)
[2017-10-15] MEDS: VANCOMYCIN INJ 2,250 MG in SODIUM CHLORID 0.9% 500 ML INJ 500 ML IV SCH (11:17)
--- NOTE | 2017-10-15 14:26 | HHI.PR ---
Subjective Remarks Follow-up sepsis/community acquired bacterial pneumonia 10/06/17-patient seen and examined, Tmax 100.2 at 4 PM however currently afebrile. Still complains of shortness of breath. 10/07/17-patient seen and examined, currently afebrile. Overnight patient had one episode of fall. Stable this morning with improvement of respiratory symptoms.. No diarrhea 10/08/17-patient seen and examined, Patient had episode of oxygen desaturation overnight for which a simple mask was placed 10/09/17-patient seen and examined,Although improved today, patient is still lethargic however he is able to follow command and requiring simple mask oxygen. Discharge was held yesterday 10/10/17-patient seen and examined, Patient with CO2 narcosis requiring BIPAP. Alert and oriented x 2 10-11-17 PATIENT REMAINS IN ICU-REQUIRING BIPAP ON AND OFF AND ATROPINE FOR HEART RATE DIPPING BELOW 40 WILL CONSULT PSYCHIATRY FOR MEDICATION ADJUSTMENT CONSULT CARDIOLOGY REGARDING BRADYCARDIA DW RN AND PT 12 patient seen and examined sitting in chair Cardiology did not feel there was anything to do other than monitor and they signed off Psychiatry saw the patient no note is available yet Sitting in chair States he is breathing better We'll advance diet Increase activity Still uses BiPAP last night and may need it today 13 only using BIPAP AT NIGHT SWITCH TO PO PREDNISONE DC IV SOLUMEDROL OK TO TRANSFER OUT OF ICU SEEN BY PSYCHIATRY- MEDS ADJUSTED 114 still remains on 4 liters try to move out of icu if bed available patient not on oxygen at home dw rn and pt needs aggressive pt and ot am labs still some coughing lives in a long term 10-15 OFF OF OXYGEN CAN BE DCED TO HOME AT HALF-WAY TODAY NEEDS OUTPT SLEEP STUDY DC TO HOME Objective Vitals Vital Signs Date Time Temp Pulse Resp B/P (MAP) Pulse Ox O2 Delivery O2 Flow Rate FiO2 10/15/17 12:00 58 10/15/17 12:00 97.8 58 14 92/54 (67) 90 10/15/17 08:27 90 21 10/15/17 08:00 93 Room Air 10/15/17 08:00 97.7 42 23 111/57 (75) 93 10/15/17 08:00 46 10/15/17 07:00 98 Nasal Cannula 2.00 10/15/17 05:45 93 30 10/15/17 04:00 98.6 45 13 103/55 (71) 95 10/15/17 04:00 45 10/15/17 00:00 46 10/15/17 00:00 97.4 46 12 104/56 (72) 95 10/14/17 20:31 95 30 10/14/17 20:00 98.8 49 14 100/50 (67) 95 10/14/17 20:00 49 10/14/17 19:00 95 Nasal Cannula 4.00 10/14/17 16:00 54 10/14/17 16:00 97.0 54 18 101/59 (73) 95 I/O 10/14/17 10/14/17 10/14/17 10/15/17 10/15/17 10/15/17 07:00 15:00 23:00 07:00 15:00 23:00 Intake Total 622.5 ml 720 ml 50 ml Output Total 1075 ml 2100 ml Balance -1075 ml 622.5 ml -1380 ml 50 ml Intake Oral 720 ml 50 ml IV Total 622.5 ml Output Urine Total 1075 ml 2100 ml # Voids 2 2 # Bowel Movements 0 0 0 Result Diagram: 10/15/17 0337 10/15/17 0337 Other Results Laboratory Tests Test 10/13/17 04:41 10/14/17 04:35 10/14/17 10:30 10/15/17 03:37 White Blood Count 9.0 TH/MM3 6.3 TH/MM3 7.1 TH/MM3 Red Blood Count 3.74 MIL/MM3 3.91 MIL/MM3 3.85 MIL/MM3 Hemoglobin 11.1 GM/DL 11.2 GM/DL 11.3 GM/DL Hematocrit 32.9 % 34.7 % 34.1 % Mean Corpuscular Volume 88.0 FL 88.7 FL 88.5 FL Mean Corpuscular Hemoglobin 29.6 PG 28.7 PG 29.5 PG Mean Corpuscular Hemoglobin Concent 33.6 % 32.3 % 33.3 % Red Cell Distribution Width 13.4 % 13.2 % 13.4 % Platelet Count 289 TH/MM3 280 TH/MM3 305 TH/MM3 Mean Platelet Volume 8.3 FL 8.9 FL 9.0 FL Neutrophils (%) (Auto) 84.1 % 76.4 % 80.9 % Lymphocytes (%) (Auto) 11.6 % 17.1 % 13.8 % Monocytes (%) (Auto) 4.1 % 6.2 % 4.9 % Eosinophils (%) (Auto) 0.0 % 0.1 % 0.3 % Basophils (%) (Auto) 0.2 % 0.2 % 0.1 % Neutrophils # (Auto) 7.6 TH/MM3 4.8 TH/MM3 5.8 TH/MM3 Lymphocytes # (Auto) 1.0 TH/MM3 1.1 TH/MM3 1.0 TH/MM3 Monocytes # (Auto) 0.4 TH/MM3 0.4 TH/MM3 0.4 TH/MM3 Eosinophils # (Auto) 0.0 TH/MM3 0.0 TH/MM3 0.0 TH/MM3 Basophils # (Auto) 0.0 TH/MM3 0.0 TH/MM3 0.0 TH/MM3 CBC Comment DIFF FINAL DIFF FINAL DIFF FINAL Differential Comment Blood Urea Nitrogen 18 MG/DL 20 MG/DL 18 MG/DL Creatinine 0.65 MG/DL 0.64 MG/DL 0.61 MG/DL Random Glucose 124 MG/DL 107 MG/DL 111 MG/DL Total Protein 6.6 GM/DL 6.2 GM/DL 6.5 GM/DL Albumin 2.7 GM/DL 2.7 GM/DL 2.8 GM/DL Calcium Level 8.8 MG/DL 8.6 MG/DL 8.6 MG/DL Phosphorus Level 2.8 MG/DL 2.8 MG/DL 2.6 MG/DL Magnesium Level 2.2 MG/DL 2.0 MG/DL 2.1 MG/DL Alkaline Phosphatase 29 U/L 29 U/L 29 U/L Aspartate Amino Transf (AST/SGOT) 10 U/L 15 U/L 27 U/L Alanine Aminotransferase (ALT/SGPT) 22 U/L 22 U/L 24 U/L Total Bilirubin 0.2 MG/DL 0.2 MG/DL 0.3 MG/DL Sodium Level 136 MEQ/L 138 MEQ/L 139 MEQ/L Potassium Level 4.3 MEQ/L 4.0 MEQ/L 4.6 MEQ/L Chloride Level 103 MEQ/L 104 MEQ/L 103 MEQ/L Carbon Dioxide Level 29.3 MEQ/L 28.2 MEQ/L 29.0 MEQ/L Anion Gap 4 MEQ/L 6 MEQ/L 7 MEQ/L Estimat Glomerular Filtration Rate 133 ML/MIN 135 ML/MIN 143 ML/MIN Vancomycin Level Trough 16.4 MCG/ML Imaging Last Impressions Gall Bladder Ultrasound 10/05/17 0000 Signed Impressions: Service Date/Time: Thursday, October 05, 2017 21:34 - CONCLUSION: 1. Multiple gallstones without biliary ductal dilatation. Mild fatty liver. Jose Alejandro Ramos MD Chest X-Ray 10/05/17 0000 Signed Impressions: Service Date/Time: Thursday, October 05, 2017 20:05 - CONCLUSION: 1. Minimal basilar atelectasis. Jose Alejandro Ramos MD Abdomen/Pelvis CT 10/05/17 0000 Signed Impressions: Service Date/Time: Thursday, October 05, 2017 21:04 - CONCLUSION: 1. No acute findings within the abdomen and pelvis. 2. Patchy airspace disease in the right lung base most characteristic of bronchopneumonia or aspiration. Previous fusion lower lumbar spine across the lumbosacral junction. Jose Alejandro Ramos MD Objective Remarks GENERAL: Awake alert oriented talkative and cooperative SKIN: Warm and dry. HEAD: Atraumatic. Normocephalic. EYES: Pupils equal and round. No scleral icterus. No injection or drainage. Extraocular muscles intact ENT: No nasal bleeding or discharge. Mucous membranes pink and moist. Tongue is midline NECK: Trachea midline. No JVD. Supple CARDIOVASCULAR: Regular rate and rhythm. S1-S2 no S3 or S4 RESPIRATORY: No accessory muscle use. Rhonchi and LESS wheezes scattered bilaterally GASTROINTESTINAL: Abdomen soft, non-tender, nondistended. Hepatic and splenic margins not palpable. MUSCULOSKELETAL: Extremities without clubbing, cyanosis, or edema. No obvious deformities. NEUROLOGICAL: Awake and alert. No obvious cranial nerve deficits. Motor grossly within normal limits. 4 out of 5 muscle strength in the arms and legs. Normal speech. PSYCHIATRIC: Appropriate mood and affect; insight and judgment normal. Much more awake and alert today Procedures none Medications and IVs Current Medications Sodium Chloride (NS Flush) 2 ml UNSCH PRN IV FLUSH FLUSH AFTER USING IV ACCESS Last administered on 10/05/17 19:42; Start 10/05/17 at 19:30; Stop 10/08/17 at 19: 44; Status DC Morphine Sulfate (Morphine Inj) 4 mg ONCE ONCE IV PUSH Last administered on 1/ 5/18at 19:42; Start 10/05/17 at 19:45; Stop 10/05/17 at 19:46; Status DC Ondansetron HCl (Zofran Inj) 4 mg ONCE ONCE IV PUSH Last administered on at 19:42; Start 10/05/17 at 19:45; Stop 10/05/17 at 19:46; Status DC Sodium Chloride 1,000 ml @ 999 mls/hr BOLUS ONCE IV Last administered on at 19:42; Start 10/05/17 at 19:45; Stop 10/05/17 at 20:45; Status DC Iohexol (Omnipaque 350 Inj) 97 ml STK-MED ONCE IVCONTRAST Last administered on 10/05/17at 21:23; Start 10/05/17 at 21:23; Stop 10/05/17 at 21:24; Status DC Ampicillin Sodium/ Sulbactam Sodium 3 gm/Sodium Chloride 100 ml @ 200 mls/hr ONCE ONCE IV Last administered on 10/05/17at 23:01; Start 10/05/17 at 22:30; Stop 10/05/17 at 23:04; Status DC Pharmacy Profile Note 0 ml @ 0 mls/hr UNSCH OTHER ; Start 10/05/17 at 22:45 Cefepime HCl 1000 mg/Sodium Chloride 100 ml @ 200 mls/hr Q12H IV Last administered on 10/15/17at 08:38; Start 10/06/17 at 09:00 Albuterol/ Ipratropium (Duoneb Neb) 1 ampule Q4HR NEB PRN NEB SOB/WHEEZING Last administered on 10/12/17at 09:05; Start 10/05/17 at 22:45 Sodium Chloride 1,000 ml @ 100 mls/hr Q10H IV Last administered on 10/10/17at 02:56; Start 10/05/17 at 22:43; Status Future Hold Sodium Chloride (NS Flush) 2 ml UNSCH PRN IV FLUSH FLUSH AFTER USING IV ACCESS ; Start 10/05/17 at 22:45 Sodium Chloride (NS Flush) 2 ml BID IV FLUSH Last administered on 10/15/17at 08: 38; Start 10/06/17 at 09:00 Ondansetron HCl (Zofran Inj) 4 mg Q6H PRN IVP NAUSEA OR VOMITING Last administered on 10/06/17at 21:51; Start 10/05/17 at 22:45 Acetaminophen (Tylenol) 650 mg Q6H PRN PO FEVER/PAIN SCALE 1 TO 2 Last administered on 10/06/17at 16:57; Start 10/05/17 at 22:45 Acetaminophen/ Hydrocodone Bitart ([place] 5-325 Mg) 1 tab Q4H PRN PO PAIN SCALE 3 TO 5; Start 10/05/17 at 22:45 Morphine Sulfate (Morphine Inj) 2 mg Q3H PRN IV PUSH Pain 6-10; Start 10/05/17 at 22:45 Senna/Docusate Sodium (Beatriz-Colace) 1 tab BID PO Last administered on at 08:37; Start 10/06/17 at 09:00 Magnesium Hydroxide (Milk Of Magnesia Liq) 30 ml Q12H PRN PO Mild constipation ; Start 10/05/17 at 22:45 Sennosides (Senokot) 17.2 mg Q12H PRN PO Moderate constipation; Start 10/05/17 at 22:45 Bisacodyl (Dulcolax Supp) 10 mg DAILY PRN RECTAL SEVERE CONSITIPATION; Start at 22:45 Lactulose (Lactulose Liq) 30 ml DAILY PRN PO SEVERE CONSITIPATION; Start at 22:45 Aripiprazole (Abilify) 20 mg DAILY PO Last administered on 10/15/17at 08:37; Start 10/06/17 at 09:00 Aripiprazole (Abilify) 20 mg HS PO Last administered on 10/11/17at 20:17; Start 10/05/17 at 22:45; Stop 10/12/17 at 12:42; Status DC Budesonide/ Formoterol Fumarate (Symbicort 160-4.5 Mcg Inh) 2 puff BID INH Last administered on 10/15/17at 08:38; Start 10/06/17 at 09:00 Diazepam (Valium) 2 mg BID PO Last administered on 10/07/17 20:21; Start at 09:00; Status Future Hold Diazepam (Valium) 10 mg HS PO Last administered on 10/07/17 20:21; Start at 22:45; Status Future Hold Divalproex Sodium (Depakote Er) 750 mg BID PO Last administered on 10/15/17 08 :38; Start 10/06/17 at 09:00 Fenofibrate (Tricor) 145 mg DAILY PO Last administered on 10/15/17 08:37; Start 10/06/17 at 09:00 Fluoxetine HCl (PROzac) 20 mg TID PO Last administered on 10/12/17at 09:00; Start 10/06/17 at 09:00; Stop 10/12/17 at 12:42; Status DC Gabapentin (Neurontin) 800 mg BID PO Last administered on 10/15/17 08:37; Start 10/06/17 at 09:00 Haloperidol (Haldol) 0.5 mg TID PO Last administered on 10/07/17 18:10; Start 10/06/17 at 09:00; Status Future Hold Tamsulosin HCl (Flomax) 0.4 mg BID PO Last administered on 10/15/17 08:37; Start 10/06/17 at 09:00 Tiotropium [place] (Spiriva Inh) 18 mcg DAILY INH Last administered on 08:37; Start 10/06/17 at 09:00 Zolpidem Tartrate (Ambien) 10 mg HS PRN PO INSOMNIA; Start 10/05/17 at 22:45 Vancomycin HCl 2500 mg/Sodium Chloride 525 ml @ 250 mls/hr ONCE ONCE IV Last administered on 10/06/17at 00:10; Start 10/06/17 at 01:00; Stop 10/06/17 at 03:05; Status DC Vancomycin HCl 1500 mg/Sodium Chloride 515 ml @ 257.5 mls/ hr Q12H IV Last administered on 10/07/17 18:10; Start 10/06/17 at 18:00; Stop 10/07/17 at 18:52; Status DC Miscellaneous Information SPECIFIC LAB TO BE DRAWN:[facility]... ONCE ONCE .XX Last administered on 10/07/17 18:00; Start 10/07/17 at 17:45; Stop 10/07/17 at 17:46; Status DC Vancomycin HCl 1750 mg/Sodium Chloride 517.5 ml @ 250 mls/hr Q8H IV Last administered on 10/08/17at 10:00; Start 10/08/17 at 02:00; Stop 10/08/17 at 20:26; Status DC Miscellaneous Information SPECIFIC LAB TO BE [facility]... ONCE ONCE .XX ; Start at 19:00; Stop 10/07/17 at 19:01; Status DC Miscellaneous Information SPECIFIC LAB TO BE [facility]... ONCE ONCE .XX ; Start at 17:45; Stop 10/08/17 at 17:46; Status DC Vancomycin HCl 2000 mg/Sodium Chloride 520 ml @ 250 mls/hr Q12H IV Last administered on 10/12/17at 09:54; Start 10/08/17 at 22:00; Stop 10/12/17 at 11:49 ; Status DC Miscellaneous Information SPECIFIC LAB TO BE [facility]... ONCE ONCE .XX Last administered on 10/10/17at 09:45; Start 10/10/17 at 09:45; Stop 10/10/17 at 09:46 ; Status DC Methylprednisolone Sodium Succinate (SoluMEDROL INJ) 40 mg Q8HR IV PUSH Last administered on 10/13/17at 05:10; Start 10/10/17 at 14:00; Stop 10/13/17 at 09:12 ; Status DC Atropine Sulfate (Atropine Inj) 0.5 mg UNSCH X1 PRN IV PUSH bradycardia<40 or symptomatic Last administered on 10/11/17at 09:32; Start 10/11/17 at 01:00; Stop 10/14/17 at 00:59; Status DC Clonidine (Catapres) 0.1 mg Q4H PRN PO SBP>160, DBP>90; Start 10/11/17 at 09:00 Vancomycin HCl 2250 mg/Sodium Chloride 522.5 ml @ 250 mls/hr Q12H IV Last administered on 10/15/17at 11:17; Start 10/12/17 at 22:00 Miscellaneous Information SPECIFIC LAB TO BE [facility]... ONCE ONCE .XX Last administered on 10/14/17at 10:30; Start 10/14/17 at 09:45; Stop 10/14/17 at 09:46 ; Status DC Fluoxetine HCl (PROzac) 20 mg DAILY PO Last administered on 10/15/17at 08:37; Start 10/13/17 at 09:00 Prednisone (Deltasone) 20 mg BID PO Last administered on 10/15/17at 08:37; Start 10/13/17 at 21:00 Miscellaneous Information SPECIFIC LAB TO BE ... ONCE ONCE .XX ; Start 10/17 at 09:45; Stop 10/17/17 at 09:46 A/P Problem List: (1) Sepsis ICD Code: A41.9 - Sepsis, unspecified organism Status: Resolved (2) Gastroenteritis ICD Code: K52.9 - Noninfective gastroenteritis and colitis, unspecified (3) Hyperkalemia ICD Code: E87.5 - Hyperkalemia (4) Respiratory failure with hypoxia and hypercapnia ICD Code: J96.91 - Respiratory failure, unspecified with hypoxia; J96.92 - Respiratory failure, unspecified with hypercapnia (5) CO2 narcosis ICD Code: R06.89 - Other abnormalities of breathing Assessment and Plan 47 year-old man with 1. Sepsis: Resolved 2. PNA: CT Abd/Pelvis w/ RLL patchy airspace disease likely bronchopneumonia or aspiration. Currently on cefepime IV. DuoNeb prn as needed. PATIENT WORSENED AND WAS TRANSFERRED TO ICU 3. Gastroenteritis: Improved and Gallbladder US w/ no acute findings. Analgesics/antiemetics as needed. 4. Hyperkalemia: Resolved 5. Cholelithiasis: Outpatient follow-up will general surgery 6. Other chronic medical conditions: Continue outpatient medications 7. Toxic encephalopathy: Resolved; continue to hold all [employer] depressant medication 8. Respiratory failure with hypoxia and hypercapnia CO2 narcosis Start BiPAP DuoNeb scheduled and when necessary switch to oral prednisone today Consult pulmonary medicine has been seen by pulmonary already HAVING SYMPTOMATIC BRADYCARDIA- NEEDING ATROPINE FOR HEART RATE UNDER 40 has resolved now-- [facility] RN CONSULT PSYCHIATRY TO ADJUST MEDS --THEY have seen and ADJUSTED HIS MEDICATIONS CONSULT CARDIO REGARDING BRADYCARDIA-cardiology recommended no beta blockers or rate controlling agents which she is not on Advance diet Physical therapy and occupational therapy TRANSFER OUT OF ICU AM LABS NEEDS PT AND OT MEDICATIONS ADJUSTED BY PSYCHIATRY DC TO HOME TODAY FOLLOW UP WITH PCP FOLLOW UP WITH DR PUGH REGARDING SLEEP STUDY DC IV ETC Discharge Planning DC HOME OFF OF OXYGEN Trenton Starr DO Oct 15, 2017 14:26
[2017-10-15] MEDS ORDERED: DIAZ10 PO (14:37)
[2017-10-15] MEDS ORDERED: ARIP1TAB14 PO (14:37)
[2017-10-15] MEDS ORDERED: DIVA250ER PO (14:37)
[2017-10-15] MEDS ORDERED: Albuterol-Ipratropium Neb NEB (14:37)
[2017-10-15] MEDS ORDERED: FLUO20CA12 PO (14:37)
[2017-10-15] MEDS ORDERED: AMBI10TA PO (14:37)
[2017-10-15] MEDS ORDERED: HALO0.5T PO (14:37)
[2017-10-15] MEDS ORDERED: ZITH500T PO (14:37)
[2017-10-15] MEDS ORDERED: DIAZ2 PO (14:37)
[2017-10-15] MEDS ORDERED: PRED20 PO (14:37)
[2017-10-15] MEDS ORDERED: PROT40TA PO (14:44)
--- NOTE | 2017-10-15 14:45 | HHI.DS ---
Discharge Summary Admission Date Oct 05, 2017 at 22:39 Discharge Date: Oct 15, 2017 Admitting Diagnosis acute pneumonia, possible aspiration, sepsis (1) Sepsis ICD Code: A41.9 - Sepsis, unspecified organism Diagnosis: Principal Status: Resolved (2) Gastroenteritis ICD Code: K52.9 - Noninfective gastroenteritis and colitis, unspecified Diagnosis: Secondary (3) Hyperkalemia ICD Code: E87.5 - Hyperkalemia Diagnosis: Secondary (4) Respiratory failure with hypoxia and hypercapnia ICD Code: J96.91 - Respiratory failure, unspecified with hypoxia; J96.92 - Respiratory failure, unspecified with hypercapnia Diagnosis: Principal (5) CO2 narcosis ICD Code: R06.89 - Other abnormalities of breathing Diagnosis: Principal Procedures none Brief History - From Admission This is a 47-year-old male with PMH of Anxiety, Depression, Bipolar Disorder, COPD, Developmental Delay, h/o TIA and Asthma who presented to the ER with complaints of abdominal pain x2 days. Pt is poor historian, but able to relay that pain is mostly in RUQ, sharp, severe, 8/10, non-radiating. Reports associated nausea, vomiting and diarrhea. No fever, chills or sick contacts. On arrival, BP 144/82, HR 109, O2 sat 95% on RA, Afebrile. WBC 17.5. K+ 5.9. Lactic Acid normal. CXR with minimal basilar atelectasis. Gallbladder US with multiple gallstones, no biliary ductal dilatation. CT Abd/Pelvis w/ no acute abdominal findings, noted to have patchy airspace disease RLL, likely bronchopneumonia or aspiration. S/p Unasyn in ER. CBC/BMP: 10/15/17 0337 10/15/17 0337 Significant Findings Laboratory Tests Test 10/13/17 04:41 10/14/17 04:35 10/14/17 10:30 10/15/17 03:37 Red Blood Count 3.74 MIL/MM3 (4.50-5.90) 3.91 MIL/MM3 (4.50-5.90) 3.85 MIL/MM3 (4.50-5.90) Hemoglobin 11.1 GM/DL (13.0-17.0) 11.2 GM/DL (13.0-17.0) 11.3 GM/DL (13.0-17.0) Hematocrit 32.9 % (39.0-51.0) 34.7 % (39.0-51.0) 34.1 % (39.0-51.0) Neutrophils (%) (Auto) 84.1 % (16.0-70.0) 76.4 % (16.0-70.0) 80.9 % (16.0-70.0) Random Glucose 124 MG/DL (74-106) 107 MG/DL (74-106) 111 MG/DL (74-106) Albumin 2.7 GM/DL (3.4-5.0) 2.7 GM/DL (3.4-5.0) 2.8 GM/DL (3.4-5.0) Alkaline Phosphatase 29 U/L (45-117) 29 U/L (45-117) 29 U/L (45-117) Aspartate Amino Transf (AST/SGOT) 10 U/L (15-37) Anion Gap 4 MEQ/L (5-15) Blood Urea Nitrogen 20 MG/DL (7-18) Total Protein 6.2 GM/DL (6.4-8.2) Vancomycin Level Trough 16.4 MCG/ML (5.0-10.0) Imaging Last Impressions Gall Bladder Ultrasound 10/05/17 Signed Impressions: Service Date/Time: Thursday, October 05, 2017 21:34 - CONCLUSION: 1. Multiple gallstones without biliary ductal dilatation. Mild fatty liver. Jose Alejandro Ramos MD Chest X-Ray 10/05/17 0000 Signed Impressions: Service Date/Time: Thursday, October 05, 2017 20:05 - CONCLUSION: 1. Minimal basilar atelectasis. Jose Alejandro Ramos MD Abdomen/Pelvis CT 10/05/17 Signed Impressions: Service Date/Time: Thursday, October 05, 2017 21:04 - CONCLUSION: 1. No acute findings within the abdomen and pelvis. 2. Patchy airspace disease in the right lung base most characteristic of bronchopneumonia or aspiration. Previous fusion lower lumbar spine across the lumbosacral junction. Jose Alejandro Ramos MD PE at Discharge GENERAL: Awake alert oriented talkative and cooperative SKIN: Warm and dry. HEAD: Atraumatic. Normocephalic. EYES: Pupils equal and round. No scleral icterus. No injection or drainage. Extraocular muscles intact ENT: No nasal bleeding or discharge. Mucous membranes pink and moist. Tongue is midline NECK: Trachea midline. No JVD. Supple CARDIOVASCULAR: Regular rate and rhythm. S1-S2 no S3 or S4 RESPIRATORY: No accessory muscle use. Rhonchi and LESS wheezes scattered bilaterally GASTROINTESTINAL: Abdomen soft, non-tender, nondistended. Hepatic and splenic margins not palpable. MUSCULOSKELETAL: Extremities without clubbing, cyanosis, or edema. No obvious deformities. NEUROLOGICAL: Awake and alert. No obvious cranial nerve deficits. Motor grossly within normal limits. 4 out of 5 muscle strength in the arms and legs. Normal speech. PSYCHIATRIC: Appropriate mood and affect; insight and judgment normal. Much more awake and alert today Hospital Course This is a 47-year-old male with PMH of Anxiety, Depression, Bipolar Disorder, COPD, Developmental Delay, h/o TIA and Asthma who presented to the ER with complaints of abdominal pain x2 days. Pt is poor historian, but able to relay that pain is mostly in RUQ, sharp, severe, 8/10, non-radiating. Reports associated nausea, vomiting and diarrhea. No fever, chills or sick contacts. On arrival, BP 144/82, HR 109, O2 sat 95% on RA, Afebrile. WBC 17.5. K+ 5.9. Lactic Acid normal. CXR with minimal basilar atelectasis. Gallbladder US with multiple gallstones, no biliary ductal dilatation. CT Abd/Pelvis w/ no acute abdominal findings, noted to have patchy airspace disease RLL, likely bronchopneumonia or aspiration. S/p Unasyn in ER. Follow-up sepsis/community acquired bacterial pneumonia 10/06/17-patient seen and examined, Tmax 100.2 at 4 PM however currently afebrile. Still complains of shortness of breath. 10/07/17-patient seen and examined, currently afebrile. Overnight patient had one episode of fall. Stable this morning with improvement of respiratory symptoms.. No diarrhea 10/08/17-patient seen and examined, Patient had episode of oxygen desaturation overnight for which a simple mask was placed 10/09/17-patient seen and examined,Although improved today, patient is still lethargic however he is able to follow command and requiring simple mask oxygen. Discharge was held yesterday 10/10/17-patient seen and examined, Patient with CO2 narcosis requiring BIPAP. Alert and oriented x 2 10-11-17 PATIENT REMAINS IN ICU-REQUIRING BIPAP ON AND OFF AND ATROPINE FOR HEART RATE DIPPING BELOW 40 WILL CONSULT PSYCHIATRY FOR MEDICATION ADJUSTMENT CONSULT CARDIOLOGY REGARDING BRADYCARDIA DW RN AND PT 10-12 patient seen and examined sitting in chair Cardiology did not feel there was anything to do other than monitor and they signed off Psychiatry saw the patient no note is available yet Sitting in chair States he is breathing better We'll advance diet Increase activity Still uses BiPAP last night and may need it today 10-13 only using BIPAP AT NIGHT SWITCH TO PO PREDNISONE DC IV SOLUMEDROL OK TO TRANSFER OUT OF ICU SEEN BY PSYCHIATRY- MEDS ADJUSTED 14 still remains on 4 liters try to move out of icu if bed available patient not on oxygen at home dw rn and pt needs aggressive pt and ot am labs still some coughing lives in a custodial 15 OFF OF OXYGEN CAN BE DCED TO HOME AT [facility] TODAY NEEDS OUTPT SLEEP STUDY DC TO HOME Pt Condition on Discharge: Stable Discharge Disposition: Discharge to SNF Discharge Time: > 30 minutes Discharge Instructions DIET: Follow Instructions for: Heart Healthy Diet, Diabetic Diet Speech Therapy-Diet Recommends: Regular Activities you can perform: Regular-No Restrictions Follow up Referrals: PCP Follow-up - 2-3 Days New Medications: Azithromycin (Zithromax) 500 Mg Tab 500 MG PO DAILY for Infection for 5 Days, #5 TAB 0 Refills Diazepam (Valium) 2 Mg Tab 2 MG PO BID PRN for AGITATION, #60 TAB 0 Refills Diazepam (Valium) 10 Mg Tab 10 MG PO HS PRN for INSOMNIA, #30 TAB 0 Refills Pantoprazole (Protonix) 40 Mg Tab 40 MG PO DAILY for Ulcer Prevention, #30 TAB 0 Refills Zolpidem (Ambien) 10 Mg Tab 10 MG PO HS PRN for INSOMNIA for 30 Days, #30 TAB 0 Refills Aripiprazole (Aripiprazole) 20 Mg Tab 20 MG PO DAILY for Control Depression, #30 TAB Divalproex ER (Depakote ER) 250 Mg Floridalma 750 MG PO BID for Agitation, #60 TAB Fluoxetine (Fluoxetine) 20 Mg Capsule 20 MG PO DAILY for Depression Control, #30 CAP Prednisone (Prednisone) 20 Mg Tab 20 MG PO BID for Breathing Treatment, #60 TAB [Albuterol-Ipratropium Neb] () 1 AMPULE NEBU 1 AMPULE NEB Q4HR NEB PRN for SOB/WHEEZING, #180 AMPULE Continued Medications: Albuterol 8.5 GM Inh (Proair Hfa 8.5 GM Inh) 90 Mcg/Act Aer 2 PUFF INH Q4-6H PRN for SHORTNESS OF BREATH, #1 INHALER 0 Refills 108 mcg/actuation Aripiprazole (Abilify) 20 Mg Tab 20 MG PO HS, #30 TAB 0 Refills Budesonide-Formoterol Inh (Symbicort Inh) 160-4.5 Mcg/Act Aero 2 PUFF INH BID for health, #1 BOTTLE 0 Refills Fenofibrate (Fenofibrate) 145 Mg Tab 145 MG PO DAILY for health, #30 TAB 0 Refills Gabapentin (Gabapentin) 800 Mg Tab 800 MG PO BID (0800,1600), #60 TAB 0 Refills Haloperidol (Haloperidol) 0.5 Mg Tab 0.5 MG PO TID for Anxiety, #90 TAB 0 Refills (This prescription has been renewed ) Lactulose Liq (Lactulose Liq) 10 Gm/15 Ml Soln 30 ML PO Q6H, ML 0 Refills Miscellaneous (No Current Meds) Misc 0 Refills Polyethylene Glycol 3350 Powder (Polyethylene Glycol 3350 Powder) 17 Gm Pow 17 GM PO DAILY for health, #1 BOX 0 Refills Tamsulosin (Flomax) 0.4 Mg Cap 0.4 MG PO BID for health, #60 CAP 0 Refills Tiotropium Inh (Spiriva Handihaler) 18 Mcg Cap 18 MCG INH DAILY for COPD, #30 CAP 0 Refills 1 capsule = 18 mcg Discontinued Medications: Aripiprazole (Abilify) 20 Mg Tab 20 MG PO DAILY for Mental Health for 15 Days, TAB 1 Refill Budesonide-Formoterol Inh (Symbicort Inh) 80-4.5 Mcg/Act Aero 2 PUFF INH Q12HR for Asthma Management, #1 INHALER 0 Refills Diazepam (Diazepam) 2 Mg Tab 2 MG PO BID, TAB 0 Refills Diazepam (Diazepam) 10 Mg Tab 10 MG PO HS, TAB 0 Refills Divalproex ER (Depakote ER) 250 Mg Floridalma 750 MG PO 3 bid for health, #180 TAB 0 Refills Fluoxetine (Fluoxetine) 20 Mg Capsule 20 MG PO TID for health, #90 CAP 0 Refills Hydroxyzine Hcl (Atarax) 25 Mg Tab 25 MG PO Q8HPRN, #10 0 Refills Prednisone (Deltasone) 20 Mg Tab 20 MG PO BID, #10 0 Refills Zolpidem (Zolpidem) 10 Mg Tab 10 MG PO HS PRN for INSOMNIA, TAB 0 Refills Trenton Starr DO Oct 15, 2017 14:45
[2017-10-17] MEDS ORDERED: PHARMACY ORDERED LAB ONE (09:45)
== END 2017-10-15 21:00 | DRG 871 ==
LOC: NEPC 16:57 → MERGE 22:39 → NEDA 22:39 → N04A 23:50 → N03A 10-10 11:45
PROVIDERS: ADMIT Hospitalist; ATTEND Hospitalist
PROC: 5A09357 Assistance with Respiratory Ventilation, Less than 24 Consecutive Hours, Continuous Positive Airway Pressure (ICD-10-PCS; principal; 2017-10-10)
DX: A41.9 Sepsis, unspecified organism (principal); J96.02 Acute respiratory failure with hypercapnia; J96.01 Acute respiratory failure with hypoxia; G92 Toxic encephalopathy; J18.9 Pneumonia, unspecified organism; J44.0 Chronic obstructive pulmonary disease with (acute) lower respiratory infection; J98.11 Atelectasis; T84.498A Other mechanical complication of other internal orthopedic devices, implants and grafts, initial encounter; K52.9 Noninfective gastroenteritis and colitis, unspecified; E87.5 Hyperkalemia; K80.20 Calculus of gallbladder without cholecystitis without obstruction; E66.9 Obesity, unspecified; I10 Essential (primary) hypertension; G47.00 Insomnia, unspecified; R00.1 Bradycardia, unspecified; T43.595A Adverse effect of other antipsychotics and neuroleptics, initial encounter; T50.905A Adverse effect of unspecified drugs, medicaments and biological substances, initial encounter; R62.50 Unspecified lack of expected normal physiological development in childhood; F31.9 Bipolar disorder, unspecified; F71 Moderate intellectual disabilities; F63.81 Intermittent explosive disorder; Z68.39 Body mass index [BMI] 39.0-39.9, adult; Z86.73 Personal history of transient ischemic attack (TIA), and cerebral infarction without residual deficits; Z91.81 History of falling; M54.5 Low back pain; W01.0XXA Fall on same level from slipping, tripping and stumbling without subsequent striking against object, initial encounter
CPT/HCPCS: 36600; 71045; 74177; 76705; 80048; 80053; 80164; 80202; 82565; 82805; 83036; 83605; 83690; 83735; 84100; 84132; 84439; 84443; 85025; 87804; 94002; 94003; 94150; 94618; 94640; 94664; 96361; 96374; 96375; J0295; J0461; J0692; J2270; J2405; J2920; J3370; J7030; J7040; J7512; Q9967

== ENCOUNTER 2017-12-09 14:51 | Emergency (ER) | payer MEDICARE, MEDICAID ==
[~2017-12-09] VITALS: Ht 162.6 cm; Wt 110.0 kg
[~2017-12-09 14:51] MED LIST changes: +ALBUAER3 INH; +AMBI10TA PO; +ARIP1TAB14 PO; +Albuterol-Ipratropium Neb NEB; +DIAZ10 PO; +DIAZ2 PO; +HALO0.5T PO; -HYDR-3133 PO; +LACT10SO PO; +PROT40TA PO; +SPIRCAP INH; +ZITH500T PO
[2017-12-09 15:00] VITALS: PULSE 88; RESP 16; TEMP 98.4; O2SAT 96
--- NOTE | 2017-12-09 16:28 | PD ---
HPI Chief Complaint: Musculoskeletal Complaint Time Seen by Provider: 15:32 Travel History International Travel<30 days: No Contact w/Intl Traveler<30days: No Traveled to known affect area: No History of Present Illness HPI The patient is a 47-year-old male who presents emergency department for right lower extremity edema. The patient states his right lower extremity has been swollen for one week. He now notes some redness and rash over the anterior aspect of the right leg in a bandlike fashion which is minimally painful to palpation. He does note the right lower extremity has been edematous for the last week. He denies any trauma to the right lower extremity. He does state is slightly painful. He denies any history of pulmonary embolism or DVT. However, he does state his father had a DVT after back surgery. He does note subjective fevers, also states he had a temperature 100 at home. He denies any numbness or tingling or right lower extremity. He denies any history of liver disorders. Symptoms are moderate. PFSH Past Medical History Arthritis: No Asthma: Yes Blood Disorders: No Bipolar Disorder: Yes Anxiety: Yes Depression: Yes (bipolar) Heart Rhythm Problems: No Cancer: No Cardiovascular Problems: Yes High Cholesterol: Yes Chemotherapy: No Chest Pain: Yes Congestive Heart Failure: No COPD: Yes Cerebrovascular Accident: Yes (TIA) Developmental Delay: Yes Diabetes: No Diminished Hearing: No Endocrine: No Gastrointestinal Disorders: No Genitourinary: Yes (RETENTION) Headaches: Yes Hypertension: Yes Immune Disorder: No Implanted Vascular Access Dvce: Yes Insomnia: Yes Kidney Stones: No Musculoskeletal: Yes Neurologic: Yes Psychiatric: Yes (anxiety, depression, schizophrenia) Reproductive: No Respiratory: Yes (ASTHMA) Integumentary: Yes (DERMATITIS, PRURITIS) Immunizations Current: Yes Migraines: Yes Radiation Therapy: No Renal Failure: No Schizophrenia: Yes Seizures: Yes Sleep Apnea: No Past Surgical History Abdominal Surgery: No AICD: No Arteriovenous Shunt: No Body Medical Devices: BACK RODS AND SCREWS Cardiac Surgery: No Ear Surgery: No Endocrine Surgery: No Eye Surgery: No Genitourinary Surgery: No Gynecologic Surgery: No Insulin Pump: No Joint Replacement: No Oral Surgery: No Pacemaker: No Thoracic Surgery: No Other Surgery: Yes Social History Alcohol Use: No Tobacco Use: No Substance Use: No Allergies-Medications (Allergen,Severity, Reaction): Coded Allergies: No Known Allergies (Verified Allergy, Mild, 12/09/17) melon (Verified Allergy, Unknown, 12/09/17) Per NOV sent by facility. tomato (Verified Allergy, Unknown, 12/09/17) Per NOV sent by facility. watermelon (Verified Allergy, Unknown, 12/09/17) Per NOV sent by facility. Reported Meds & Prescriptions Reported Meds & Active Scripts Active Protonix (Pantoprazole Sodium) 40 Mg Tab 40 Mg PO DAILY Prednisone 20 Mg Tab 20 Mg PO BID Valium (Diazepam) 10 Mg Tab 10 Mg PO HS PRN Ambien (Zolpidem Tartrate) 10 Mg Tab 10 Mg PO HS PRN 30 Days Valium (Diazepam) 2 Mg Tab 2 Mg PO BID PRN Zithromax (Azithromycin) 500 Mg Tab 500 Mg PO DAILY 5 Days Aripiprazole 20 Mg Tab 20 Mg PO DAILY Fluoxetine (Fluoxetine HCl) 20 Mg Capsule 20 Mg PO DAILY Depakote ER (Divalproex Sodium) 250 Mg Floridalma 750 Mg PO BID [Albuterol-Ipratropium Neb] 1 AMPULE Nebu 1 Ampule NEB Q4HR NEB PRN Haloperidol 0.5 Mg Tab 0.5 Mg PO TID Flomax (Tamsulosin HCl) 0.4 Mg Cap 0.4 Mg PO BID Polyethylene Glycol 3350 Powder (Polyethylene Glycol) 17 Gm Pow 17 Gm PO DAILY Fenofibrate 145 Mg Tab 145 Mg PO DAILY Symbicort Inh (Budesonide/Formoterol Fumarate) 160-4.5 Mcg/Act Aero 2 Puff INH BID Gabapentin 800 Mg Tab 800 Mg PO BID (0800,1600) Reported Proair Hfa 8.5 GM Inh (Albuterol Sulfate) 90 Mcg/Act Aer 2 Puff INH Q4-6H PRN 108 mcg/actuation Spiriva Handihaler (Tiotropium Inh) 18 Mcg Cap 18 Mcg INH DAILY 1 capsule = 18 mcg Lactulose Liq (Lactulose) 10 Gm/15 Ml Soln 30 Ml PO Q6H Abilify (Aripiprazole) 20 Mg Tab 20 Mg PO HS No Current Meds (Miscellaneous Medication) Misc Review of Systems Except as stated in HPI: all other systems reviewed are Neg General / Constitutional: Positive: Fever Cardiovascular: No: Chest Pain or Discomfort Respiratory: No: Shortness of Breath Gastrointestinal: No: Nausea, Vomiting, Abdominal Pain Genitourinary: No: Decreased Urinary Output Musculoskeletal: Positive: Edema, Pain, No: Weakness Skin: Positive Rash Neurologic: No: Paresthesia, Sensory Disturbance Physical Exam Narrative GENERAL: Awake, alert, pleasant 47-year-old male who appears his stated age and is in no acute respiratory distress. SKIN: Focused skin assessment warm/dry. HEAD: Atraumatic. Normocephalic. EYES: No injection or drainage. Wearing glasses. ENT: No nasal bleeding or discharge. Mucous membranes pink and moist. NECK: Trachea midline. No JVD. CARDIOVASCULAR: Regular rate and rhythm. No murmur appreciated. RESPIRATORY: No accessory muscle use. Clear to auscultation. Breath sounds equal bilaterally. GASTROINTESTINAL: Abdomen soft, non-tender, nondistended. No rebound tenderness. MUSCULOSKELETAL: Right lower extremity is edematous when compared to left. Positive dorsalis pedal pulses. Elevated erythematous rash in a circumferential fashion that does not go completely around the leg. Nonblanching. Nontender. NEUROLOGICAL: Awake and alert. No obvious cranial nerve deficits. Motor grossly within normal limits. Normal speech. PSYCHIATRIC: Appropriate mood and affect; insight and judgment normal. Data Data Last Documented VS Vital Signs Date Time Temp Pulse Resp B/P (MAP) Pulse Ox O2 Delivery O2 Flow Rate FiO2 12/09/17 15:00 98.4 88 16 96 Orders Orders Us Leg Venous Doppler (12/09/17 ) Complete Blood Count With Diff (12/09/17 15:59) Comprehensive Metabolic Panel (12/09/17 15:59) C-Reactive Protein (Crp) (12/09/17 15:59) Westergren Sedimentation Rate (12/09/17 15:59) Tibia/Fibula (Ap/Lat) (12/09/17 ) Lactic Acid (12/09/17 15:59) Blood Culture (12/09/17 15:59) Clindamycin 600 Mg/Ns Premix (Cleocin 60 (12/09/17 17:30) Ed Discharge Order (12/09/17 18:16) Labs Laboratory Tests Test 12/09/17 16:30 White Blood Count 4.2 TH/MM3 Red Blood Count 4.27 MIL/MM3 Hemoglobin 12.7 GM/DL Hematocrit 36.8 % Mean Corpuscular Volume 86.3 FL Mean Corpuscular Hemoglobin 29.8 PG Mean Corpuscular Hemoglobin Concent 34.5 % Red Cell Distribution Width 14.4 % Platelet Count 180 TH/MM3 Mean Platelet Volume 8.8 FL Neutrophils (%) (Auto) 44.3 % Lymphocytes (%) (Auto) 40.7 % Monocytes (%) (Auto) 12.8 % Eosinophils (%) (Auto) 1.8 % Basophils (%) (Auto) 0.4 % Neutrophils # (Auto) 1.8 TH/MM3 Lymphocytes # (Auto) 1.7 TH/MM3 Monocytes # (Auto) 0.5 TH/MM3 Eosinophils # (Auto) 0.1 TH/MM3 Basophils # (Auto) 0.0 TH/MM3 CBC Comment DIFF FINAL Differential Comment Erythrocyte Sedimentation Rate 1 mm/hr Blood Urea Nitrogen 13 MG/DL Creatinine 0.99 MG/DL Random Glucose 101 MG/DL Total Protein 6.5 GM/DL Albumin 3.5 GM/DL Calcium Level 7.8 MG/DL Alkaline Phosphatase 50 U/L Aspartate Amino Transf (AST/SGOT) 23 U/L Alanine Aminotransferase (ALT/SGPT) 21 U/L Total Bilirubin 0.2 MG/DL Sodium Level 141 MEQ/L Potassium Level 3.7 MEQ/L Chloride Level 107 MEQ/L Carbon Dioxide Level 30.2 MEQ/L Anion Gap 4 MEQ/L Estimat Glomerular Filtration Rate 82 ML/MIN Lactic Acid Level 1.8 mmol/L C-Reactive Protein LESS THAN 0.29 MG/DL MDM Medical Decision Making Medical Screen Exam Complete: Yes Emergency Medical Condition: Yes Medical Record Reviewed: Yes Interpretation(s) Last Impressions Tibia/Fibula X-Ray 12/09/17 0000 Signed Impressions: Service Date/Time: Saturday, December 09, 2017 16:18 - CONCLUSION: 1. Soft tissue swelling in the right leg. No acute bony abnormalities. Jose Alejandro Ramos MD Lower Extremity Ultrasound 12/09/17 0000 Signed Impressions: Service Date/Time: Saturday, December 09, 2017 16:04 - CONCLUSION: Normal examination. Jose Alejandro Ramos MD Laboratory Tests Test 12/09/17 16:30 White Blood Count 4.2 TH/MM3 Red Blood Count 4.27 MIL/MM3 Hemoglobin 12.7 GM/DL Hematocrit 36.8 % Mean Corpuscular Volume 86.3 FL Mean Corpuscular Hemoglobin 29.8 PG Mean Corpuscular Hemoglobin Concent 34.5 % Red Cell Distribution Width 14.4 % Platelet Count 180 TH/MM3 Mean Platelet Volume 8.8 FL Neutrophils (%) (Auto) 44.3 % Lymphocytes (%) (Auto) 40.7 % Monocytes (%) (Auto) 12.8 % Eosinophils (%) (Auto) 1.8 % Basophils (%) (Auto) 0.4 % Neutrophils # (Auto) 1.8 TH/MM3 Lymphocytes # (Auto) 1.7 TH/MM3 Monocytes # (Auto) 0.5 TH/MM3 Eosinophils # (Auto) 0.1 TH/MM3 Basophils # (Auto) 0.0 TH/MM3 CBC Comment DIFF FINAL Differential Comment Erythrocyte Sedimentation Rate 1 mm/hr Blood Urea Nitrogen 13 MG/DL Creatinine 0.99 MG/DL Random Glucose 101 MG/DL Total Protein 6.5 GM/DL Albumin 3.5 GM/DL Calcium Level 7.8 MG/DL Alkaline Phosphatase 50 U/L Aspartate Amino Transf (AST/SGOT) 23 U/L Alanine Aminotransferase (ALT/SGPT) 21 U/L Total Bilirubin 0.2 MG/DL Sodium Level 141 MEQ/L Potassium Level 3.7 MEQ/L Chloride Level 107 MEQ/L Carbon Dioxide Level 30.2 MEQ/L Anion Gap 4 MEQ/L Estimat Glomerular Filtration Rate 82 ML/MIN Lactic Acid Level 1.8 mmol/L C-Reactive Protein LESS THAN 0.29 MG/DL Differential Diagnosis Differential diagnosis includes cellulitis, DVT, chronic venous stasis, lymphedema, hypoalbuminemia, fracture, contusion, compartment syndrome. Narrative Course IV was established, labs are drawn and sent, and the patient was placed on cardiac telemetry monitoring and continuous pulse oximetry monitoring. X-ray the right lower extremity was ordered. Ultrasound of the right lower extremity was ordered. Sedimentation rate and CRP were sent to lab. A culture lactic acid were sent to lab. The patient's white count is unremarkable. Lactic acid is normal. Sedimentation rate and CRP are unremarkable. Patient endorses fever of 100 at home, does have swelling of the right lower extremity with skin changes, may be cellulitis versus atypical presentation of abnormal rash. The patient was administered clindamycin 600 mg intravenously. The skin changes were marked with a surgical marking pen. The patient is advised to follow-up with his primary physician or return in 48 hours for reevaluation. Elevate, medications as directed, Tylenol and/or Motrin as needed for pain. Diagnosis Primary Impression: Right leg pain Additional Impression: Cellulitis of right leg Patient Instructions: General Instructions Additional Instructions: Please provide the patient a copy of his x-ray results, lab results, and ultrasound results at discharge. Follow-up with your primary physician. Return in 48 hours for reevaluation. Elevate, Tylenol and/or Motrin as needed for pain. Med/Other Pt SpecificInfo: Prescription(s) given Scripts Clindamycin (Cleocin) 150 Mg Cap 150 MG PO Q6H for Infection for 7 Days, #28 CAP 0 Refills Prov: Diomedes Shook MD 12/09/17 Disposition: DISCHARGE HOME Condition: Stable Diomedes Shook MD Dec 09, 2017 16:28
[2017-12-09 16:52] LABS: AUTOMATED NEUTROPHIL # 1.8 TH/MM3 (1.8-7.7); BASOPHIL % 0.4 % (0.0-2.0); EOSINOPHIL # 0.1 TH/MM3 (0-0.4); EOSINOPHIL % 1.8 % (0.0-4.0); HEMATOCRIT 36.8 % (39.0-51.0); HEMOGLOBIN 12.7 GM/DL (13.0-17.0); LYMPH % 40.7 % (9.0-44.0); LYMPHOCYTE # 1.7 TH/MM3 (1.0-4.8); MEAN CELL VOLUME 86.3 FL (80.0-100.0); MEAN CORPUSCULAR HEMOGLOBIN 29.8 PG (27.0-34.0); MEAN CORPUSCULAR HGB CONC 34.5 % (32.0-36.0); MEAN PLATELET VOLUME 8.8 FL (7.0-11.0); MONO % 12.8 % (0.0-8.0); MONOCYTE # 0.5 TH/MM3 (0-0.9); NEUT % 44.3 % (16.0-70.0); PLATELET COUNT 180 TH/MM3 (150-450); RED BLOOD COUNT 4.27 MIL/MM3 (4.50-5.90); RED CELL DISTRIBUTION WIDTH 14.4 % (11.6-17.2); WHITE BLOOD COUNT 4.2 TH/MM3 (4.0-11.0)
--- NOTE | 2017-12-09 16:54 | RADRPT ---
EXAM DATE/TIME: 12/09/2017 16:04 [facility] COMPARISON: No previous studies available for comparison. INDICATIONS : Right leg swelling. MEDICAL HISTORY : Hypercholesterolemia. Chronic obstructive pulmonary disease. Glasses. Seizures. Transient ischemic at tack. Chest pain. Asthma. Bipolar disorder. Depression. Anxiety. Claustrophobia. SURGICAL HISTORY : Back surgery. [place] filter. ENCOUNTER: Subsequent ACUITY: 1 week PAIN SCORE: 4/10 LOCATION: Right leg. TECHNIQUE: Venous ultrasound of the leg was performed from the inguinal ligament to the proximal calf. Real-gisselle e, color Doppler and spectral tracing, compression and augmentation techniques were used. FINDINGS: There is normal compressibility of the deep venous system from the inguinal region to the proximal ca lf. No echogenic clot is seen in the lumen of the common femoral, femoral, popliteal, and posterior tibial veins. There is a normal response of the venous system to proximal and distal augmentation an d respiration. CONCLUSION: Normal examination. Jose Alejandro Ramos MD on December 09, 2017 at 16:52 Board Certified Radiologist. This report was verified electronically.
--- NOTE | 2017-12-09 16:59 | RADRPT ---
EXAM DATE/TIME: 12/09/2017 16:18 [facility] COMPARISON: No previous studies available for comparison. INDICATIONS : Swelling in right posterior leg. MEDICAL HISTORY : Hypertension. Cerebrovascular disease. Chronic obstructive pulmonary disease.Asthma SURGICAL HISTORY : None. ENCOUNTER: Initial ACUITY: 1 day PAIN SCORE: 6/10 LOCATION: Right tib fib FINDINGS: Two view examination of the right tibia demonstrates no evidence of fracture or dislocation. Bony mi neralization is normal. The soft tissue structures are swollen. CONCLUSION: 1. Soft tissue swelling in the right leg. No acute bony abnormalities. Jose Alejandro Ramos MD on December 09, 2017 at 16:57 Board Certified Radiologist. This report was verified electronically.
[2017-12-09 17:15] LABS: ALBUMIN 3.5 GM/DL (3.4-5.0); ALT (GPT) 21 U/L (12-78); AST (GOT) 23 U/L (15-37); BICARBONATE 30.2 MEQ/L (21.0-32.0); BLOOD UREA NITROGEN 13 MG/DL (7-18); C-REACTIVE PROTEIN LESS THAN 0.29 MG/DL (0.00-0.30); CALCIUM 7.8 MG/DL (8.5-10.1); CHLORIDE 107 MEQ/L (98-107); CREATININE 0.99 MG/DL (0.60-1.30); GLOMERULAR FILTRATION RATE 82 ML/MIN (>89); GLUCOSE,RANDOM 101 MG/DL (74-106); SODIUM (NA) 141 MEQ/L (136-145)
[2017-12-09 17:17] LABS: ALKALINE PHOSPHATASE 50 U/L (45-117); TOTAL BILIRUBIN ADULT 0.2 MG/DL (0.2-1.0); TOTAL PROTEIN 6.5 GM/DL (6.4-8.2)
[2017-12-09] MEDS ORDERED: CLINDAMYCIN 600 MG/NS PREMIX 50 ML IV ONE (17:30)
[2017-12-09] MEDS ORDERED: CLIN150 PO (18:21)
== END 2017-12-09 19:05 | disposition home or self-care (01) ==
LOC: NEPE 14:51
DX: M79.604 Pain in right leg (principal); L03.115 Cellulitis of right lower limb; Z79.899 Other long term (current) drug therapy
CPT/HCPCS: 73590; 80053; 83605; 85025; 85652; 86140; 87040; 93971; 96365

== ENCOUNTER 2017-12-18 12:57 | Emergency (ER) | payer MEDICARE, MEDICAID ==
[~2017-12-18 12:57] MED LIST changes: +CLIN150 PO
[2017-12-18 13:21] VITALS: BP 151/85; PULSE 100; RESP 18; TEMP 98.6; O2SAT 95
--- NOTE | 2017-12-18 15:21 | RADRPT ---
EXAM DATE/TIME: 12/18/2017 14:38 [facility] COMPARISON: US LEG RIGHT VENOUS DOPPLER, December 09, 2017, 16:04. INDICATIONS : Right leg swelling. MEDICAL HISTORY : Hypercholesterolemia. Hypertension. Chronic obstructive pulmonary disease. TIA. Seizures. Migraine . SURGICAL HISTORY : [place] filter. ENCOUNTER: Subsequent ACUITY: 1 day PAIN SCORE: 0/10 LOCATION: Right leg. TECHNIQUE: Venous ultrasound of the leg was performed from the inguinal ligament to the proximal calf. Real-gisselle e, color Doppler and spectral tracing, compression and augmentation techniques were used. FINDINGS: There is normal compressibility of the deep venous system from the inguinal region to the proximal ca lf. No echogenic clot is seen in the lumen of the common femoral, femoral, popliteal, and posterior tibial veins. There is a normal response of the venous system to proximal and distal augmentation an d respiration. There is edema in the subcutaneous soft tissues. CONCLUSION: No evidence of DVT. Elliot Salinas MD on December 18, 2017 at 15:19 Board Certified Radiologist. This report was verified electronically.
[2017-12-18 16:02] LABS: AUTOMATED NEUTROPHIL # 3.3 TH/MM3 (1.8-7.7); BASOPHIL % 0.5 % (0.0-2.0); EOSINOPHIL # 0.1 TH/MM3 (0-0.4); HEMOGLOBIN 12.3 GM/DL (13.0-17.0); LYMPH % 24.9 % (9.0-44.0); LYMPHOCYTE # 1.4 TH/MM3 (1.0-4.8); MEAN CELL VOLUME 87.4 FL (80.0-100.0); MEAN CORPUSCULAR HGB CONC 33.2 % (32.0-36.0); MEAN PLATELET VOLUME 9.8 FL (7.0-11.0); MONO % 15.4 % (0.0-8.0); MONOCYTE # 0.9 TH/MM3 (0-0.9); NEUT % 57.2 % (16.0-70.0); PLATELET COUNT 156 TH/MM3 (150-450); RED BLOOD COUNT 4.24 MIL/MM3 (4.50-5.90); RED CELL DISTRIBUTION WIDTH 14.4 % (11.6-17.2); WHITE BLOOD COUNT 5.7 TH/MM3 (4.0-11.0)
[2017-12-18 16:11] LABS: BICARBONATE 27.2 MEQ/L (21.0-32.0); CREATININE 0.87 MG/DL (0.60-1.30)
[2017-12-18 18:47] VITALS: BP 135/84; PULSE 77; RESP 17; O2SAT 97
[2017-12-18] MEDS ORDERED: CLINDAMYCIN PHOS 600 MG/4 ML VIAL IM ONE (19:15)
[2017-12-18] MEDS ORDERED: KETOROLAC TROMETHAMINE 60 MG/2 ML (IM) VIAL IM ONE (19:15)
[2017-12-18] MEDS ORDERED: CEPH-460 PO (19:16)
[2017-12-18] MEDS ORDERED: DICL75TA PO (19:16)
[2017-12-18] MEDS ORDERED: BACT800T5 PO (19:16)
--- NOTE | 2017-12-18 19:26 | PD ---
HPI Chief Complaint: Edema Time Seen by Provider: 18:49 Travel History International Travel<30 days: No Contact w/Intl Traveler<30days: No Traveled to known affect area: No History of Present Illness HPI 47-year-old male that presents to the ED for evaluation of right lower leg swelling and pain. Patient has had this for a couple of weeks. Per patient he worsen over the weekend. Patient was seen here last week for the same and was treated with clindamycin to cover for bacterial infection although the time the physician believes that it was more dermatitis. Patient had ultrasound and blood work that was essentially unremarkable. 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 He denies any medical issues. No injuries. He does have a rash to his right leg that the patient is painful and swollen. Denies any injury. No other medical issues. He has not seen anybody since been here. No other medical issues. Pain per patient is 5 out of 10. PFSH Past Medical History Arthritis: No Asthma: Yes Blood Disorders: No Bipolar Disorder: Yes Anxiety: Yes Depression: Yes (bipolar) Heart Rhythm Problems: No Cancer: No Cardiovascular Problems: Yes High Cholesterol: Yes Chemotherapy: No Chest Pain: Yes Congestive Heart Failure: No COPD: Yes Cerebrovascular Accident: Yes (TIA) Developmental Delay: Yes Diabetes: No Diminished Hearing: No Endocrine: No Gastrointestinal Disorders: No Genitourinary: Yes (RETENTION) Headaches: Yes Hypertension: Yes Immune Disorder: No Implanted Vascular Access Dvce: Yes Insomnia: Yes Kidney Stones: No Musculoskeletal: Yes Neurologic: Yes Psychiatric: Yes (anxiety, depression, schizophrenia) Reproductive: No Respiratory: Yes (ASTHMA) Integumentary: Yes (DERMATITIS, PRURITIS) Immunizations Current: Yes Migraines: Yes Radiation Therapy: No Renal Failure: No Schizophrenia: Yes Seizures: Yes Sleep Apnea: No ?: Not Past Surgical History Abdominal Surgery: No AICD: No Arteriovenous Shunt: No Body Medical Devices: BACK RODS AND SCREWS Cardiac Surgery: No Ear Surgery: No Endocrine Surgery: No Eye Surgery: No Genitourinary Surgery: No Gynecologic Surgery: No Insulin Pump: No Joint Replacement: No Oral Surgery: No Pacemaker: No Thoracic Surgery: No Other Surgery: Yes Social History Alcohol Use: No Tobacco Use: No Substance Use: No Allergies-Medications (Allergen,Severity, Reaction): Coded Allergies: No Known Allergies (Verified Allergy, Mild, 12/09/17) melon (Verified Allergy, Unknown, 12/09/17) Per MAR sent by facility. tomato (Verified Allergy, Unknown, 12/09/17) Per MAR sent by facility. watermelon (Verified Allergy, Unknown, 12/09/17) Per MAR sent by facility. Reported Meds & Prescriptions Reported Meds & Active Scripts Active Keflex (Cephalexin) 500 Mg Cap 500 Mg PO Q8H [address] (Diclofenac Sodium) 75 Mg Tabdr 75 Mg PO BID PRN Bactrim DS (Sulfamethoxazole-Trimethoprim) 800-160 Mg Tab 1 Tab PO BID 10 Days Cleocin (Clindamycin HCl) 150 Mg Cap 150 Mg PO Q6H 7 Days Protonix (Pantoprazole Sodium) 40 Mg Tab 40 Mg PO DAILY Prednisone 20 Mg Tab 20 Mg PO BID Valium (Diazepam) 10 Mg Tab 10 Mg PO HS PRN Ambien (Zolpidem Tartrate) 10 Mg Tab 10 Mg PO HS PRN 30 Days Valium (Diazepam) 2 Mg Tab 2 Mg PO BID PRN Zithromax (Azithromycin) 500 Mg Tab 500 Mg PO DAILY 5 Days Aripiprazole 20 Mg Tab 20 Mg PO DAILY Fluoxetine (Fluoxetine HCl) 20 Mg Capsule 20 Mg PO DAILY Depakote ER (Divalproex Sodium) 250 Mg Floridalma 750 Mg PO BID [Albuterol-Ipratropium Neb] 1 AMPULE Nebu 1 Ampule NEB Q4HR NEB PRN Haloperidol 0.5 Mg Tab 0.5 Mg PO TID Flomax (Tamsulosin HCl) 0.4 Mg Cap 0.4 Mg PO BID Polyethylene Glycol 3350 Powder (Polyethylene Glycol) 17 Gm Pow 17 Gm PO DAILY Fenofibrate 145 Mg Tab 145 Mg PO DAILY Symbicort Inh (Budesonide/Formoterol Fumarate) 160-4.5 Mcg/Act Aero 2 Puff INH BID Gabapentin 800 Mg Tab 800 Mg PO BID (0800,1600) Reported Proair Hfa 8.5 GM Inh (Albuterol Sulfate) 90 Mcg/Act Aer 2 Puff INH Q4-6H PRN 108 mcg/actuation Spiriva Handihaler (Tiotropium Inh) 18 Mcg Cap 18 Mcg INH DAILY 1 capsule = 18 mcg Lactulose Liq (Lactulose) 10 Gm/15 Ml Soln 30 Ml PO Q6H Abilify (Aripiprazole) 20 Mg Tab 20 Mg PO HS Review of Systems Except as stated in HPI: all other systems reviewed are Neg Physical Exam Narrative GENERAL: SKIN: Warm and dry. HEAD: Atraumatic. Normocephalic. EYES: Pupils equal and round. No scleral icterus. No injection or drainage. ENT: No nasal bleeding or discharge. Mucous membranes pink and moist. NECK: Trachea midline. No JVD. CARDIOVASCULAR: Regular rate and rhythm. RESPIRATORY: No accessory muscle use. Clear to auscultation. Breath sounds equal bilaterally. GASTROINTESTINAL: Abdomen soft, non-tender, nondistended. Hepatic and splenic margins not palpable. MUSCULOSKELETAL: Extremities without clubbing, cyanosis, or edema. No obvious deformities. Patient has an area of swelling and erythema noted on the right leg. They have erythema is raised and blanchable. Slightly warm to touch compared to the left leg. 2+ pulses bilaterally. Patient does appear to have what appears to be old pen demarcation of the swelling and this appears to have improved. NEUROLOGICAL: Awake and alert. No obvious cranial nerve deficits. Motor grossly within normal limits. Five out of 5 muscle strength in the arms and legs. Normal speech. PSYCHIATRIC: Appropriate mood and affect; insight and judgment normal. Data Data Last Documented VS Vital Signs Date Time Temp Pulse Resp B/P (MAP) Pulse Ox O2 Delivery O2 Flow Rate FiO2 12/18/17 18:47 77 17 135/84 (101) 97 Room Air 12/18/17 13:21 98.6 Orders Orders Complete Blood Count With Diff (12/18/17 13:22) Basic Metabolic Panel (Bmp) (12/18/17 13:22) Coag Profile (12/18/17 13:22) Us Leg Venous Doppler (12/18/17 ) Ketorolac Inj (Toradol Inj) (12/18/17 19:15) Clindamycin Inj (Cleocin Inj) (12/18/17 19:15) Labs Laboratory Tests Test 12/18/17 15:10 White Blood Count 5.7 TH/MM3 Red Blood Count 4.24 MIL/MM3 Hemoglobin 12.3 GM/DL Hematocrit 37.0 % Mean Corpuscular Volume 87.4 FL Mean Corpuscular Hemoglobin 29.0 PG Mean Corpuscular Hemoglobin Concent 33.2 % Red Cell Distribution Width 14.4 % Platelet Count 156 TH/MM3 Mean Platelet Volume 9.8 FL Neutrophils (%) (Auto) 57.2 % Lymphocytes (%) (Auto) 24.9 % Monocytes (%) (Auto) 15.4 % Eosinophils (%) (Auto) 2.0 % Basophils (%) (Auto) 0.5 % Neutrophils # (Auto) 3.3 TH/MM3 Lymphocytes # (Auto) 1.4 TH/MM3 Monocytes # (Auto) 0.9 TH/MM3 Eosinophils # (Auto) 0.1 TH/MM3 Basophils # (Auto) 0.0 TH/MM3 CBC Comment DIFF FINAL Differential Comment Blood Urea Nitrogen 13 MG/DL Creatinine 0.87 MG/DL Random Glucose 93 MG/DL Calcium Level 9.0 MG/DL Sodium Level 141 MEQ/L Potassium Level 3.7 MEQ/L Chloride Level 105 MEQ/L Carbon Dioxide Level 27.2 MEQ/L Anion Gap 9 MEQ/L Estimat Glomerular Filtration Rate 95 ML/MIN MDM Medical Decision Making Medical Screen Exam Complete: Yes Emergency Medical Condition: Yes Medical Record Reviewed: Yes Interpretation(s) CBC & BMP Diagram 12/18/17 15:10 Calcium Level 9.0 Last Impressions Lower Extremity Ultrasound 12/18/17 0000 Signed Impressions: Service Date/Time: Monday, December 18, 2017 14:38 - CONCLUSION: No evidence of DVT. Elliot Salinas MD Differential Diagnosis Cellulitis versus DVT versus PE versus dermatitis versus normal exam Narrative Course 47-year-old male that presents to the ED for evaluation of right lower leg rash and pain. Patient was properly examined and was found to have signs and symptoms of unclear etiology. Patient had blood work and imaging done in triage that was essentially unremarkable. I had Dr. Shook who evaluated the patient here last week and agrees that the rash itself appears to have improved. Patient states compliance with clindamycin. He stumbled trial Bactrim and Keflex to cover for infection. Rash appears to be more of a dermatitis rather than a cellulitis but it is warm to touch. Patient only has it on the right leg and on the left leg. Do recommend the patient. 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 See ED worsening symptoms. Follow with PCP. Diagnosis Primary Impression: Dermatitis Additional Impression: Cellulitis Qualified Codes: L03.115 - Cellulitis of right lower limb Patient Instructions: General Instructions Additional Instructions: Take medications as prescribed. Follow-up with PCP. 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 See ED for worsening symptoms. Elevated the leg while resting. Ice or warm compresses to the leg as needed. Med/Other Pt SpecificInfo: Prescription(s) given Scripts Cephalexin (Keflex) 500 Mg Cap 500 MG PO Q8H for Infection for 10 Days, #30 CAP 0 Refills Prov: Donna Francis MD 12/18/[address] (Diclofenac Sodium DR) 75 Mg Tabdr 75 MG PO BID Y for PAIN SCALE 1 TO 10, #20 TAB 0 Refills Prov: Donna Francis MD 12/18/17 Sulfamethoxazole-Trimethoprim (Bactrim DS) 800-160 Mg Tab 1 TAB PO BID for Infection for 10 Days, #20 TAB 0 Refills Prov: Donna Francis MD 12/18/17 Disposition: 01 DISCHARGE HOME Condition: Kamran Torres Dec 18, 2017 19:26
[2017-12-18 19:46] VITALS: BP 122/74; PULSE 77; RESP 18; O2SAT 100
== END 2017-12-18 20:07 | disposition home or self-care (01) ==
LOC: NED 12:57 → NEPE 20:07
DX: L30.9 Dermatitis, unspecified (principal); L03.115 Cellulitis of right lower limb; F20.9 Schizophrenia, unspecified; F31.9 Bipolar disorder, unspecified
CPT/HCPCS: 80048; 85025; 93971; 96372; 99284; J1885; 85610; 85730

== ENCOUNTER 2018-01-12 12:01 | Emergency (ER) | payer MEDICARE, MEDICAID ==
[~2018-01-12 12:01] MED LIST changes: +BACT800T5 PO; +CEPH-460 PO; +DICL75TA PO; -Z.0.NO CURRENT MEDS
[2018-01-12 12:08] VITALS: BP 143/91; PULSE 110; RESP 16; TEMP 98.5; O2SAT 97
[2018-01-12] MEDS ORDERED: DIAZ5 PO (12:24)
[2018-01-12] MEDS ORDERED: SODIUM CHLOR 0.9% 1000 ML INJ 1,000 ML IV SCH (12:31)
--- NOTE | 2018-01-12 12:37 | PD ---
HPI Chief Complaint: GI Complaint Time Seen by Provider: 12:12 Travel History International Travel<30 days: No Contact w/Intl Traveler<30days: No Traveled to known affect area: No History of Present Illness HPI 47-year-old male who presents to the ED for evaluation of left lower quadrant abdominal pain and what he describes as diarrhea with blood and dark stools. Per patient has had this for the past 2-3 days. Patient is somewhat of a poor historian secondary to what appears to be developmental delay. Patient lives [facility] and comes here on his own for evaluation of this. I actually evaluated this patient about 3 weeks ago for dermatitis to his legs that appears to have improved. He states that the pain is 4 out of 10 on the left lower quadrant. He denies ever having anything like this before. No surgeries. Denies colonoscopies. States that the stool is dark and has multiple stools. Per patient has had 6 stools today. Has no known allergies to medication. Denies any recent travel. No nausea or vomiting. Has not seen anybody for this. PFSH Past Medical History Arthritis: No Asthma: Yes Blood Disorders: No Bipolar Disorder: Yes Anxiety: Yes Depression: Yes (bipolar) Heart Rhythm Problems: No Cancer: No Cardiovascular Problems: Yes High Cholesterol: Yes Chemotherapy: No Chest Pain: Yes Congestive Heart Failure: No COPD: Yes Cerebrovascular Accident: Yes (TIA) Developmental Delay: Yes Diabetes: No Diminished Hearing: No Endocrine: No Gastrointestinal Disorders: No Genitourinary: Yes (RETENTION) Headaches: Yes Hypertension: Yes Immune Disorder: No Implanted Vascular Access Dvce: Yes Insomnia: Yes Kidney Stones: No Musculoskeletal: Yes Neurologic: Yes Psychiatric: Yes (anxiety, depression, schizophrenia) Reproductive: No Respiratory: Yes (ASTHMA) Integumentary: Yes (DERMATITIS, PRURITIS) Immunizations Current: Yes Migraines: Yes Radiation Therapy: No Renal Failure: No Schizophrenia: Yes Seizures: Yes Sleep Apnea: No Past Surgical History Abdominal Surgery: No AICD: No Arteriovenous Shunt: No Body Medical Devices: BACK RODS AND SCREWS Cardiac Surgery: No Ear Surgery: No Endocrine Surgery: No Eye Surgery: No Genitourinary Surgery: No Gynecologic Surgery: No Insulin Pump: No Joint Replacement: No Oral Surgery: No Pacemaker: No Thoracic Surgery: No Other Surgery: Yes Social History Alcohol Use: No Tobacco Use: No Substance Use: No Allergies-Medications (Allergen,Severity, Reaction): Coded Allergies: melon (Verified Allergy, Intermediate, Hives, 01/12/18) tomato (Verified Allergy, Intermediate, Hives, 01/12/18) watermelon (Verified Allergy, Intermediate, Hives, 01/12/18) Reported Meds & Prescriptions Reported Meds & Active Scripts Active Protonix (Pantoprazole Sodium) 20 Mg Tab 20 Mg PO DAILY Flagyl (Metronidazole) 500 Mg Tab 500 Mg PO BID [address] (Diclofenac Sodium) 75 Mg Tabdr 75 Mg PO BID PRN Ambien (Zolpidem Tartrate) 10 Mg Tab 10 Mg PO HS PRN 30 Days Aripiprazole 20 Mg Tab 20 Mg PO DAILY Fluoxetine (Fluoxetine HCl) 20 Mg Capsule 20 Mg PO DAILY Depakote ER (Divalproex Sodium) 250 Mg Floridalma 750 Mg PO BID [Albuterol-Ipratropium Neb] 1 AMPULE Nebu 1 Ampule NEB Q4HR NEB PRN Haloperidol 0.5 Mg Tab 0.5 Mg PO TID Flomax (Tamsulosin HCl) 0.4 Mg Cap 0.4 Mg PO BID Fenofibrate 145 Mg Tab 145 Mg PO DAILY Symbicort Inh (Budesonide/Formoterol Fumarate) 160-4.5 Mcg/Act Aero 2 Puff INH BID Reported Valium (Diazepam) 5 Mg Tab 5 Mg PO TID PRN Proair Hfa 8.5 GM Inh (Albuterol Sulfate) 90 Mcg/Act Aer 2 Puff INH Q4-6H PRN 108 mcg/actuation Spiriva Handihaler (Tiotropium Inh) 18 Mcg Cap 18 Mcg INH DAILY 1 capsule = 18 mcg Abilify (Aripiprazole) 20 Mg Tab 20 Mg PO HS Review of Systems Except as stated in HPI: all other systems reviewed are Neg Physical Exam Narrative GENERAL: SKIN: Warm and dry. HEAD: Atraumatic. Normocephalic. EYES: Pupils equal and round. No scleral icterus. No injection or drainage. ENT: No nasal bleeding or discharge. Mucous membranes pink and moist. Tongue is midline. No uvula deviation. NECK: Trachea midline. No JVD. CARDIOVASCULAR: Regular rate and rhythm. No murmurs, S3, S4. RESPIRATORY: No accessory muscle use. Clear to auscultation. Breath sounds equal bilaterally. GASTROINTESTINAL: Abdomen soft, tender with deep palpation on the left lower quadrant, nondistended. Hepatic and splenic margins not palpable. Rectal exam: no hemorrhoids noted. positive hemocult. MUSCULOSKELETAL: Extremities without clubbing, cyanosis, or edema. No obvious deformities. Full range of motion of the upper and lower extremities bilaterally. 2+ pulses bilaterally. NEUROLOGICAL: Awake and alert. No obvious cranial nerve deficits. Motor grossly within normal limits. Five out of 5 muscle strength in the arms and legs. Normal speech. PSYCHIATRIC: Appropriate mood and affect; insight and judgment normal. Data Data Last Documented VS Vital Signs Date Time Temp Pulse Resp B/P (MAP) Pulse Ox O2 Delivery O2 Flow Rate FiO2 01/12/18 14:40 98.6 92 15 119/64 (82) 95 Room Air Orders Orders Complete Blood Count With Diff (01/12/18 12:12) Comprehensive Metabolic Panel (01/12/18 12:12) Lipase (01/12/18 12:12) Prothrombin Time / Inr (Pt) (01/12/18 12:12) Act Partial Throm Time (Ptt) (01/12/18 12:12) Urinalysis - C+S If Indicated (01/12/18 12:12) Iv Access Insert/Monitor (01/12/18 12:12) Type And Screen (01/12/18 12:12) Ct Abd/Pel W Iv Contrast(Rout) (01/12/18 ) Morphine Inj (Morphine Inj) (01/12/18 12:45) Ondansetron Inj (Zofran Inj) (01/12/18 12:45) Pantoprazole Inj (Protonix Inj) (01/12/18 12:45) Sodium Chlor 0.9% 1000 Ml Inj (Ns 1000 M (01/12/18 12:31) Iohexol 350 Inj (Omnipaque 350 Inj) (01/12/18 13:55) Ed Discharge Order (01/12/18 15:00) Labs Laboratory Tests Test 01/12/18 12:36 White Blood Count 4.9 TH/MM3 Red Blood Count 4.44 MIL/MM3 Hemoglobin 12.9 GM/DL Hematocrit 38.8 % Mean Corpuscular Volume 87.4 FL Mean Corpuscular Hemoglobin 29.1 PG Mean Corpuscular Hemoglobin Concent 33.3 % Red Cell Distribution Width 14.5 % Platelet Count 231 TH/MM3 Mean Platelet Volume 9.0 FL Neutrophils (%) (Auto) 57.8 % Lymphocytes (%) (Auto) 30.1 % Monocytes (%) (Auto) 10.4 % Eosinophils (%) (Auto) 1.3 % Basophils (%) (Auto) 0.4 % Neutrophils # (Auto) 2.8 TH/MM3 Lymphocytes # (Auto) 1.5 TH/MM3 Monocytes # (Auto) 0.5 TH/MM3 Eosinophils # (Auto) 0.1 TH/MM3 Basophils # (Auto) 0.0 TH/MM3 CBC Comment DIFF FINAL Differential Comment Prothrombin Time 10.4 SEC Prothromb Time International Ratio 1.0 RATIO Activated Partial Thromboplast Time 25.0 SEC Blood Urea Nitrogen 14 MG/DL Creatinine 1.16 MG/DL Random Glucose 97 MG/DL Total Protein 7.3 GM/DL Albumin 3.7 GM/DL Calcium Level 8.6 MG/DL Alkaline Phosphatase 40 U/L Aspartate Amino Transf (AST/SGOT) 33 U/L Alanine Aminotransferase (ALT/SGPT) 34 U/L Total Bilirubin 0.2 MG/DL Sodium Level 144 MEQ/L Potassium Level 4.0 MEQ/L Chloride Level 110 MEQ/L Carbon Dioxide Level 29.4 MEQ/L Anion Gap 5 MEQ/L Estimat Glomerular Filtration Rate 68 ML/MIN Lipase 168 U/L MDM Medical Decision Making Medical Screen Exam Complete: Yes Emergency Medical Condition: Yes Medical Record Reviewed: Yes Interpretation(s) lipase WNL CBC & BMP Diagram 01/12/18 12:36 Total Protein 7.3, Albumin 3.7, Calcium Level 8.6, Alkaline Phosphatase 40 L, Aspartate Amino Transf (AST/SGOT) 33, Alanine Aminotransferase (ALT/SGPT) 34, Total Bilirubin 0.2 Last Impressions Abdomen/Pelvis CT 01/12/18 0000 Signed Impressions: Service Date/Time: Friday, January 12, 2018 13:55 - CONCLUSION: No acute CT findings in the abdomen or pelvis Flaquito Castaneda MD Differential Diagnosis Abdominal pain versus colitis versus diverticulitis versus acute abdomen versus gastroenteritis Narrative Course 47-year-old male presents to the ED for evaluation of left lower abdominal pain with bleeding. Patient was properly examined and was found to have signs and symptoms which appear to be consistent with appears to be diverticulitis. No history of this in the past. Patient is somewhat of a poor historian secondary to his developmental delay and schizophrenia. Labs and imaging were ordered. Hemoccult was done by me and was positive. No obvious hemorrhoids noted on exam. labs and imaging showed no sign of acute disease at this time. Clear to the patient's symptoms. Patient does appear to have diarrhea. Her actually bothering him about 3 weeks ago and given some antibiotics for cellulitis to his leg. Possibly related to this. We will give Flagyl to cover for C. difficile of the liver appears to be less likely. Patient was told that he needs to follow-up with GI doctor this week. See ED if worsening symptoms. Case discussed with my attending Dr Gaona who was made aware of all findings and agrees with [facility] Pos. & Neg. Controls: Passed Fecal Specimen Occult Blood: Positive Diagnosis Primary Impression: Diarrhea Qualified Codes: R19.7 - Diarrhea, unspecified Patient Instructions: General Instructions Additional Instructions: Take medications as prescribed. Follow with GI this week. See ED for worsening symptoms. Follow-up with PCP. Drink plenty of fluids. Med/Other Pt SpecificInfo: Prescription(s) given Scripts Pantoprazole (Protonix) 20 Mg Tab 20 MG PO DAILY for Reflux, #30 TAB 0 Refills Prov: Jackeline Gaona MD 01/12/18 Metronidazole (Flagyl) 500 Mg Tab 500 MG PO BID for Infection for 10 Days, #20 TAB 0 Refills Prov: Jackeline Gaona MD 01/12/18 Disposition: 01 DISCHARGE HOME Condition: Stable Kamran Soto Jan 12, 2018 12:37
[2018-01-12] MEDS ORDERED: ONDANSETRON HCL 4 MG/2 ML VIAL IVP ONE (12:45)
[2018-01-12] MEDS ORDERED: PANTOPRAZOLE SODIUM 40 MG VIAL IVP ONE (12:45)
[2018-01-12] MEDS ORDERED: MORPHINE SULFATE 4 MG/ML INJ IV PUSH ONE (12:45)
[2018-01-12 12:52] LABS: AUTOMATED NEUTROPHIL # 2.8 TH/MM3 (1.8-7.7); BASOPHIL % 0.4 % (0.0-2.0); EOSINOPHIL # 0.1 TH/MM3 (0-0.4); EOSINOPHIL % 1.3 % (0.0-4.0); HEMATOCRIT 38.8 % (39.0-51.0); HEMOGLOBIN 12.9 GM/DL (13.0-17.0); LYMPH % 30.1 % (9.0-44.0); LYMPHOCYTE # 1.5 TH/MM3 (1.0-4.8); MEAN CELL VOLUME 87.4 FL (80.0-100.0); MEAN CORPUSCULAR HEMOGLOBIN 29.1 PG (27.0-34.0); MEAN CORPUSCULAR HGB CONC 33.3 % (32.0-36.0); MONO % 10.4 % (0.0-8.0); MONOCYTE # 0.5 TH/MM3 (0-0.9); NEUT % 57.8 % (16.0-70.0); PLATELET COUNT 231 TH/MM3 (150-450); RED BLOOD COUNT 4.44 MIL/MM3 (4.50-5.90); RED CELL DISTRIBUTION WIDTH 14.5 % (11.6-17.2); WHITE BLOOD COUNT 4.9 TH/MM3 (4.0-11.0)
[2018-01-12 13:05] LABS: PROTHROMBIN TIME - PATIENT 10.4 SEC (9.8-11.6)
[2018-01-12 13:29] LABS: ALBUMIN 3.7 GM/DL (3.4-5.0); ALT (GPT) 34 U/L (12-78); AST (GOT) 33 U/L (15-37); BICARBONATE 29.4 MEQ/L (21.0-32.0); BLOOD UREA NITROGEN 14 MG/DL (7-18); CALCIUM 8.6 MG/DL (8.5-10.1); CHLORIDE 110 MEQ/L (98-107); CREATININE 1.16 MG/DL (0.60-1.30); GLOMERULAR FILTRATION RATE 68 ML/MIN (>89); GLUCOSE,RANDOM 97 MG/DL (74-106); SODIUM (NA) 144 MEQ/L (136-145)
[2018-01-12 13:31] LABS: ALKALINE PHOSPHATASE 40 U/L (45-117); TOTAL BILIRUBIN ADULT 0.2 MG/DL (0.2-1.0); TOTAL PROTEIN 7.3 GM/DL (6.4-8.2)
[2018-01-12 13:34] VITALS: BP 119/62; PULSE 102; RESP 15; TEMP 98.2; O2SAT 95
[2018-01-12] MEDS ORDERED: IOHEXOL 350 MG/ML 10 ML VIAL (for RAD DIAG) IVCONTRAST ONE (13:55)
--- NOTE | 2018-01-12 14:16 | RADRPT ---
EXAM DATE/TIME: 01/12/2018 13:55 [facility] COMPARISON: CT ABDOMEN & PELVIS W CONTRAST, October 05, 2017, 21:04. INDICATIONS : Lower abdomen pain with rectal bleeding for three days. IV CONTRAST: 93 cc Omnipaque 350 (iohexol) IV ORAL CONTRAST: No oral contrast ingested. RADIATION DOSE: 16.68 CTDIvol (mGy) MEDICAL HISTORY : Stroke. Hypertension. SURGICAL HISTORY : Fusion, lumbar. ENCOUNTER: Initial ACUITY: 3 days PAIN SCALE: 7/10 LOCATION: Bilateral lower quadrant TECHNIQUE: Volumetric scanning of the abdomen and pelvis was performed. Using automated exposure control and ad justment of the mA and/or kV according to patient size, radiation dose was kept as low as reasonably achievable to obtain optimal diagnostic quality images. DICOM format image data is available electro nically for review and comparison. FINDINGS: LOWER LUNGS: The visualized lower lungs are clear. LIVER: Homogeneous density without lesion. There is no dilation of the biliary tree. No calcified gallston es. SPLEEN: Normal size without lesion. PANCREAS: Within normal limits. KIDNEYS: Normal in size and shape. There is no mass, stone or hydronephrosis. ADRENAL GLANDS: Within normal limits. VASCULAR: There is no aortic aneurysm. BOWEL/MESENTERY: The stomach, small bowel, and colon demonstrate no acute abnormality. There is no free intraperitone al air or fluid. ABDOMINAL WALL: Within normal limits. RETROPERITONEUM: There is no lymphadenopathy. BLADDER: No wall thickening or mass. REPRODUCTIVE: Within normal limits. INGUINAL: There is no lymphadenopathy or hernia. MUSCULOSKELETAL: Within normal limits for patient age. CONCLUSION: No acute CT findings in the abdomen or pelvis Flaquito Castaneda MD on January 12, 2018 at 14:11 Board Certified Radiologist. This report was verified electronically.
[2018-01-12 14:40] VITALS: BP 119/64; PULSE 92; RESP 15; TEMP 98.6; O2SAT 95
[2018-01-12] MEDS ORDERED: METR-1 PO (14:50)
[2018-01-12] MEDS ORDERED: PANT20 PO (14:51)
[2018-01-12 15:10] VITALS: BP 133/78; TEMP 97.8
== END 2018-01-12 15:10 | disposition home or self-care (01) ==
LOC: NEPE 12:01
DX: R19.7 Diarrhea, unspecified (principal); R10.32 Left lower quadrant pain
CPT/HCPCS: 74177; 80053; 83690; 85025; 85610; 85730; 86850; 86900; 86901; 96361; 96374; 96375; 99284; C9113; J2270; J2405; J7030; Q9967

== ENCOUNTER 2018-01-17 15:59 | Emergency (ER) | payer MEDICARE, MEDICAID ==
[~2018-01-17] VITALS: Ht 165.1 cm; Wt 112.0 kg
[~2018-01-17 15:59] MED LIST changes: -BACT800T5 PO; -CEPH-460 PO; -CLIN150 PO; -DIAZ10 PO; -DIAZ2 PO; +DIAZ5 PO; -GABA800T PO; -LACT10SO PO; +METR-1 PO; +PANT20 PO; -POLY17S PO; -PRED20 PO; -PROT40TA PO; -ZITH500T PO
[2018-01-17 16:21] VITALS: BP 151/82; PULSE 112; RESP 34; TEMP 101; O2SAT 92
[2018-01-17] MEDS ORDERED: SODIUM CHLOR 0.9% 1000 ML INJ 1,000 ML IV ONE ×3 (17:48)
[2018-01-17] MEDS ORDERED: ACETAMINOPHEN 325 MG TAB PO ONE (18:00)
--- NOTE | 2018-01-17 18:11 | RADRPT ---
EXAM DATE/TIME: 01/17/2018 17:51 [facility] COMPARISON: No previous studies available for comparison. INDICATIONS : Fever, cough MEDICAL HISTORY : Stroke. Hypertension, Asthma SURGICAL HISTORY : Fusion, lumbar. ENCOUNTER: Initial ACUITY: 2 days PAIN SCORE: 0/10 LOCATION: chest FINDINGS: A single view of the chest demonstrates the lungs to be symmetrically aerated without evidence of mas s, infiltrate or effusion. The cardiomediastinal contours are unremarkable. Osseous structures are intact. CONCLUSION: No acute disease. Flaquito Castaneda MD on January 17, 2018 at 18:08 Board Certified Radiologist. This report was verified electronically.
[2018-01-17] MEDS: RESP: ALBUTEROL 2.5 MG/IPRATROPIUM 0.5 MG NEB (SCH) INH ×2 (18:14→18:15)
[2018-01-17] MEDS ORDERED: methylPREDNISolone SOD SUCC 125 MG/2 ML VIAL IV PUSH ONE (18:15)
--- NOTE | 2018-01-17 18:23 | PD ---
HPI Chief Complaint: Respiratory Symptoms Time Seen by Provider: 17:39 Travel History International Travel<30 days: No Contact w/Intl Traveler<30days: No Traveled to known affect area: No History of Present Illness HPI Patient's 47 years old. He arrives with complaints of asthma and feeling generally sick. He reports vomiting. He reports inability to tolerate oral hydration. Patient reports similar symptoms were present yesterday. Positive subjective fever reported. Onset gradual. Timing constant. Severity moderate. PFSH Past Medical History Arthritis: No Asthma: Yes Blood Disorders: No Bipolar Disorder: Yes Anxiety: Yes Depression: Yes (bipolar) Heart Rhythm Problems: No Cancer: No Cardiovascular Problems: Yes High Cholesterol: Yes Chemotherapy: No Chest Pain: Yes Congestive Heart Failure: No COPD: Yes Cerebrovascular Accident: Yes (TIA) Developmental Delay: Yes Diabetes: No Diminished Hearing: No Endocrine: No Gastrointestinal Disorders: No Genitourinary: Yes (RETENTION) Headaches: Yes Hypertension: Yes Immune Disorder: No Implanted Vascular Access Dvce: Yes Insomnia: Yes Kidney Stones: No Musculoskeletal: Yes Neurologic: Yes Psychiatric: Yes (anxiety, depression, schizophrenia) Reproductive: No Respiratory: Yes Integumentary: Yes (DERMATITIS, PRURITIS) Immunizations Current: Yes Migraines: Yes Radiation Therapy: No Renal Failure: No Schizophrenia: Yes Seizures: Yes Sleep Apnea: No Past Surgical History Abdominal Surgery: No AICD: No Arteriovenous Shunt: No Body Medical Devices: BACK RODS AND SCREWS Cardiac Surgery: No Ear Surgery: No Endocrine Surgery: No Eye Surgery: No Genitourinary Surgery: No Gynecologic Surgery: No Insulin Pump: No Joint Replacement: No Oral Surgery: No Pacemaker: No Thoracic Surgery: No Other Surgery: Yes Social History Alcohol Use: No Tobacco Use: No Substance Use: No Allergies-Medications (Allergen,Severity, Reaction): Coded Allergies: melon (Verified Allergy, Intermediate, Hives, 01/17/18) tomato (Verified Allergy, Intermediate, Hives, 01/17/18) watermelon (Verified Allergy, Intermediate, Hives, 01/17/18) Reported Meds & Prescriptions Reported Meds & Active Scripts Active Protonix (Pantoprazole Sodium) 20 Mg Tab 20 Mg PO DAILY Flagyl (Metronidazole) 500 Mg Tab 500 Mg PO BID 10 Days Ambien (Zolpidem Tartrate) 10 Mg Tab 10 Mg PO HS PRN 30 Days Fluoxetine (Fluoxetine HCl) 20 Mg Capsule 20 Mg PO DAILY Depakote ER (Divalproex Sodium) 250 Mg Floridalma 750 Mg PO BID Haloperidol 0.5 Mg Tab 0.5 Mg PO TID Flomax (Tamsulosin HCl) 0.4 Mg Cap 0.4 Mg PO BID Fenofibrate 145 Mg Tab 145 Mg PO DAILY Symbicort Inh (Budesonide/Formoterol Fumarate) 160-4.5 Mcg/Act Aero 2 Puff INH BID Reported Lorazepam 0.5 Mg Tab 0.5 Mg PO BID PRN Lactulose 10 Gram/15 Ml (15 Ml) Solution QID Gabapentin 800 Mg Tab 800 Mg PO BID Breo Ellipta Inh (Fluticasone/Vilanterol) 100-25 Mcg/Act Inh 1 Puff INH DAILY Use daily at the same time. Proair Hfa 8.5 GM Inh (Albuterol Sulfate) 90 Mcg/Act Aer 2 Puff INH Q4-6H PRN 108 mcg/actuation Abilify (Aripiprazole) 20 Mg Tab 20 Mg PO HS Review of Systems Except as stated in HPI: all other systems reviewed are Neg General / Constitutional: Positive: Fever Cardiovascular: No: Chest Pain or Discomfort Respiratory: Positive: Cough, Shortness of Breath, Wheezing Physical Exam Narrative GENERAL: 47-year-old male pleasant well-nourished well-developed ambulatory Vital Signs Date Time Temp Pulse Resp B/P (MAP) Pulse Ox O2 Delivery O2 Flow Rate FiO2 01/17/18 16:21 101.0 112 34 151/82 (105) 92 SKIN: Warm and dry. HEAD: Atraumatic. Normocephalic. EYES: Pupils equal and round. No scleral icterus. No injection or drainage. ENT: No nasal bleeding or discharge. Mucous membranes pink and moist. NECK: Trachea midline. No JVD. CARDIOVASCULAR: Tachycardia. Regular rhythm. RESPIRATORY: Minimal wheezing bilaterally. GASTROINTESTINAL: Abdomen soft, non-tender, nondistended. Hepatic and splenic margins not palpable. MUSCULOSKELETAL: Extremities without clubbing, cyanosis, or edema. No obvious deformities. NEUROLOGICAL: Awake and alert. No obvious cranial nerve deficits. Motor grossly within normal limits. Five out of 5 muscle strength in the arms and legs. Normal speech. PSYCHIATRIC: Appropriate mood and affect; insight and judgment normal. Data Data Last Documented VS Vital Signs Date Time Temp Pulse Resp B/P (MAP) Pulse Ox O2 Delivery O2 Flow Rate FiO2 01/17/18 19:37 99.3 95 16 111/59 (76) 95 Nasal Cannula 2.00 Orders Orders Sepsis Workup Initiated (01/17/18 ) Complete Blood Count With Diff (01/17/18 17:48) Comprehensive Metabolic Panel (01/17/18 17:48) Lactic Acid Sepsis Protocol (01/17/18 17:48) Urinalysis - C+S If Indicated (01/17/18 17:48) Influenzae A/B Antigen (01/17/18 17:48) Blood Culture (01/17/18 17:48) Chest, Single Ap (01/17/18 17:48) Blood Glucose (01/17/18 17:48) Ecg Monitoring (01/17/18 17:48) Iv Access Insert/Monitor (01/17/18 17:48) Oximetry (01/17/18 17:48) Oxygen Administration (01/17/18 17:48) Acetaminophen (Tylenol) (01/17/18 18:00) Sodium Chlor 0.9% 1000 Ml Inj (Ns 1000 M (01/17/18 17:48) Sodium Chlor 0.9% 1000 Ml Inj (Ns 1000 M (01/17/18 17:48) Sodium Chlor 0.9% 1000 Ml Inj (Ns 1000 M (01/17/18 17:48) Methylprednisolone So Succ Inj (Solumedr (01/17/18 18:15) Albuterol-Ipratropium Neb (Duoneb Neb) (01/17/18 18:15) Labs Laboratory Tests Test 01/17/18 18:35 01/17/18 20:05 White Blood Count 5.7 TH/MM3 Red Blood Count 4.70 MIL/MM3 Hemoglobin 13.6 GM/DL Hematocrit 41.4 % Mean Corpuscular Volume 88.1 FL Mean Corpuscular Hemoglobin 29.0 PG Mean Corpuscular Hemoglobin Concent 32.9 % Red Cell Distribution Width 14.0 % Platelet Count 196 TH/MM3 Mean Platelet Volume 9.3 FL Neutrophils (%) (Auto) 63.1 % Lymphocytes (%) (Auto) 19.8 % Monocytes (%) (Auto) 16.0 % Eosinophils (%) (Auto) 0.6 % Basophils (%) (Auto) 0.5 % Neutrophils # (Auto) 3.6 TH/MM3 Lymphocytes # (Auto) 1.1 TH/MM3 Monocytes # (Auto) 0.9 TH/MM3 Eosinophils # (Auto) 0.0 TH/MM3 Basophils # (Auto) 0.0 TH/MM3 CBC Comment DIFF FINAL Differential Comment Blood Urea Nitrogen 15 MG/DL Creatinine 1.26 MG/DL Random Glucose 81 MG/DL Total Protein 7.5 GM/DL Albumin 3.8 GM/DL Calcium Level 9.2 MG/DL Alkaline Phosphatase 31 U/L Aspartate Amino Transf (AST/SGOT) 30 U/L Alanine Aminotransferase (ALT/SGPT) 27 U/L Total Bilirubin 0.5 MG/DL Sodium Level 138 MEQ/L Potassium Level 3.7 MEQ/L Chloride Level 104 MEQ/L Carbon Dioxide Level 26.0 MEQ/L Anion Gap 8 MEQ/L Estimat Glomerular Filtration Rate 62 ML/MIN Lactic Acid Level 1.3 mmol/L [facility] Medical Decision Making Medical Screen Exam Complete: Yes Emergency Medical Condition: Yes Medical Record Reviewed: Yes Differential Diagnosis Influenza, pneumonia, gastroenteritis Narrative Course CBC & BMP Diagram 01/17/18 18:35 Total Protein 7.5, Albumin 3.8, Calcium Level 9.2, Alkaline Phosphatase 31 L, Aspartate Amino Transf (AST/SGOT) 30, Alanine Aminotransferase (ALT/SGPT) 27, Total Bilirubin 0.5 LA 1.3 Pt's symptoms are c/w clinical influenza regardless of microbiology laboratory result, which has been false negative often this season. Component of asthma exacerbation is considered likely as well. No sign PNA on CXR. Tamiflu script. Diagnosis Primary Impression: Influenza Additional Impression: Asthma exacerbation Qualified Codes: J45.901 - Unspecified asthma with (acute) exacerbation Referrals: Primary Care Physician 2 days Med/Other Pt SpecificInfo: Prescription(s) given Scripts Prednisone (Prednisone) 20 Mg Tab 40 MG PO DAILY for 3 Days, #6 TAB 0 Refills Take 40 mg (2 tablets) daily for 5 days Prov: Julian Proctor MD 01/17/18 Oseltamivir (Tamiflu) 75 Mg Cap 75 MG PO BID for Mgmt Viral Infection for 7 Days, #14 CAP 0 Refills Prov: Julian Proctor MD 01/17/18 Disposition: 01 DISCHARGE HOME Condition: Stable Julian Proctor MD Jan 17, 2018 18:23
[2018-01-17] MEDS ORDERED: LORA0.5T PO (18:40)
[2018-01-17] MEDS ORDERED: FLUT1INH INH (18:40)
[2018-01-17] MEDS ORDERED: GABA800T PO (18:40)
[2018-01-17] MEDS ORDERED: LACT10SO5 (18:40)
[2018-01-17 18:57] LABS: AUTOMATED NEUTROPHIL # 3.6 TH/MM3 (1.8-7.7); BASOPHIL % 0.5 % (0.0-2.0); EOSINOPHIL % 0.6 % (0.0-4.0); HEMATOCRIT 41.4 % (39.0-51.0); HEMOGLOBIN 13.6 GM/DL (13.0-17.0); LYMPH % 19.8 % (9.0-44.0); LYMPHOCYTE # 1.1 TH/MM3 (1.0-4.8); MEAN CELL VOLUME 88.1 FL (80.0-100.0); MEAN CORPUSCULAR HGB CONC 32.9 % (32.0-36.0); MEAN PLATELET VOLUME 9.3 FL (7.0-11.0); MONOCYTE # 0.9 TH/MM3 (0-0.9); NEUT % 63.1 % (16.0-70.0); PLATELET COUNT 196 TH/MM3 (150-450); WHITE BLOOD COUNT 5.7 TH/MM3 (4.0-11.0)
[2018-01-17 19:15] LABS: ALBUMIN 3.8 GM/DL (3.4-5.0); AST (GOT) 30 U/L (15-37); BLOOD UREA NITROGEN 15 MG/DL (7-18); CALCIUM 9.2 MG/DL (8.5-10.1); CHLORIDE 104 MEQ/L (98-107); CREATININE 1.26 MG/DL (0.60-1.30); GLOMERULAR FILTRATION RATE 62 ML/MIN (>89); GLUCOSE,RANDOM 81 MG/DL (74-106); SODIUM (NA) 138 MEQ/L (136-145)
[2018-01-17 19:17] LABS: ALT (GPT) 27 U/L (12-78)
[2018-01-17 19:18] LABS: ALKALINE PHOSPHATASE 31 U/L (45-117); TOTAL BILIRUBIN ADULT 0.5 MG/DL (0.2-1.0); TOTAL PROTEIN 7.5 GM/DL (6.4-8.2)
[2018-01-17 19:37] VITALS: BP 111/59; PULSE 95; RESP 16; TEMP 99.3; O2SAT 95
[2018-01-17] MEDS ORDERED: OSEL75 PO (20:43)
[2018-01-17] MEDS ORDERED: PRED20 PO (20:46)
[2018-01-17 21:06] LABS: BILIRUBIN, URINE NEG (NEG); BLOOD, URINE NEG (NEG); GLUCOSE,URINE NEG (NEG); KETONE, URINE NEG (NEG); MUCUS URINE FEW /lpf (OCC); NITRITE,URINE NEG (NEG); SQUAMOUS EPITHELIAL CELL URINE 2 /hpf (0-5); URINE COLOR YELLOW (YELLW/STRAW); URINE LEUKOCYTE ESTERASE NEG (NEG)
[2018-01-17 21:07] VITALS: BP 135/67
== END 2018-01-17 21:09 | disposition home or self-care (01) ==
LOC: NEPD 15:59
DX: J11.1 Influenza due to unidentified influenza virus with other respiratory manifestations (principal); R11.10 Vomiting, unspecified; J45.901 Unspecified asthma with (acute) exacerbation; I10 Essential (primary) hypertension; J44.9 Chronic obstructive pulmonary disease, unspecified
CPT/HCPCS: 71045; 80053; 81001; 83605; 85025; 87040; 87804; 94664; 96361; 96374; 99284; J2930; J7030

== ENCOUNTER 2018-01-23 13:00 | Inpatient (IN) | payer MEDICARE, MEDICAID ==
[~2018-01-23] VITALS: Ht 165.1 cm; Wt 111.0 kg
[2018-01-23] VITALS (8 sets, daily range): BP systolic 119–157; BP diastolic 69–82; PULSE 99–115; RESP 16–26; TEMP 97.8–98.2; O2SAT 91–97
[~2018-01-23 13:00] MED LIST changes: -ARIP1TAB14 PO; -Albuterol-Ipratropium Neb NEB; -DIAZ5 PO; -DICL75TA PO; +FLUT1INH INH; +GABA800T PO; +LACT10SO5; +LORA0.5T PO; +OSEL75 PO; +PRED20 PO; -SPIRCAP INH
--- NOTE | 2018-01-23 13:28 | PD ---
HPI Chief Complaint: Respiratory Symptoms Time Seen by Provider: 13:07 Travel History International Travel<30 days: No Contact w/Intl Traveler<30days: No Traveled to known affect area: No History of Present Illness HPI Patient is a 47-year-old male who presents the emergency room with complaints of asthma exacerbation. Patient reports that they are painting in his apartment complex, reports that he thinks that the painting cause exacerbation of his asthma. Patient reports that he has had reductive cough as well as wheezing all morning. Patient denies any fever chills, he has reports that he was recently treated for pneumonia 2 weeks ago with antibiotics. PFSH Past Medical History Arthritis: No Asthma: Yes Blood Disorders: No Bipolar Disorder: Yes Anxiety: Yes Depression: Yes (bipolar) Heart Rhythm Problems: No Cancer: No Cardiovascular Problems: Yes High Cholesterol: Yes Chemotherapy: No Chest Pain: Yes Congestive Heart Failure: No COPD: Yes Cerebrovascular Accident: Yes (TIA) Developmental Delay: Yes Diabetes: No Diminished Hearing: No Endocrine: No Gastrointestinal Disorders: No Genitourinary: Yes (RETENTION) Headaches: Yes Hypertension: Yes Immune Disorder: No Implanted Vascular Access Dvce: Yes Insomnia: Yes Kidney Stones: No Musculoskeletal: Yes Neurologic: Yes Psychiatric: Yes (anxiety, depression, schizophrenia) Reproductive: No Respiratory: Yes Integumentary: Yes (DERMATITIS, PRURITIS) Immunizations Current: Yes Migraines: Yes Radiation Therapy: No Renal Failure: No Schizophrenia: Yes Seizures: Yes Sleep Apnea: No Tetanus Vaccination: < 5 Years Influenza Vaccination: Yes Past Surgical History Abdominal Surgery: No AICD: No Arteriovenous Shunt: No Body Medical Devices: BACK RODS AND SCREWS Cardiac Surgery: No Ear Surgery: No Endocrine Surgery: No Eye Surgery: No Genitourinary Surgery: No Gynecologic Surgery: No Insulin Pump: No Joint Replacement: No Oral Surgery: No Pacemaker: No Thoracic Surgery: No Other Surgery: Yes Social History Alcohol Use: No Tobacco Use: No Substance Use: No Allergies-Medications (Allergen,Severity, Reaction): Coded Allergies: melon (Verified Allergy, Intermediate, Hives, 01/17/18) tomato (Verified Allergy, Intermediate, Hives, 01/17/18) watermelon (Verified Allergy, Intermediate, Hives, 01/17/18) Reported Meds & Prescriptions Reported Meds & Active Scripts Active Prednisone 20 Mg Tab 40 Mg PO DAILY 3 Days Take 40 mg (2 tablets) daily for 5 days Tamiflu (Oseltamivir Phosphate) 75 Mg Cap 75 Mg PO BID 7 Days Protonix (Pantoprazole Sodium) 20 Mg Tab 20 Mg PO DAILY Flagyl (Metronidazole) 500 Mg Tab 500 Mg PO BID 10 Days Ambien (Zolpidem Tartrate) 10 Mg Tab 10 Mg PO HS PRN 30 Days Fluoxetine (Fluoxetine HCl) 20 Mg Capsule 20 Mg PO DAILY Depakote ER (Divalproex Sodium) 250 Mg Floridalma 750 Mg PO BID Haloperidol 0.5 Mg Tab 0.5 Mg PO TID Flomax (Tamsulosin HCl) 0.4 Mg Cap 0.4 Mg PO BID Fenofibrate 145 Mg Tab 145 Mg PO DAILY Symbicort Inh (Budesonide/Formoterol Fumarate) 160-4.5 Mcg/Act Aero 2 Puff INH BID Reported Lorazepam 0.5 Mg Tab 0.5 Mg PO BID PRN Lactulose 10 Gram/15 Ml (15 Ml) Solution QID Gabapentin 800 Mg Tab 800 Mg PO BID Breo Ellipta Inh (Fluticasone/Vilanterol) 100-25 Mcg/Act Inh 1 Puff INH DAILY Use daily at the same time. Proair Hfa 8.5 GM Inh (Albuterol Sulfate) 90 Mcg/Act Aer 2 Puff INH Q4-6H PRN 108 mcg/actuation Abilify (Aripiprazole) 20 Mg Tab 20 Mg PO HS Review of Systems General / Constitutional: No: Fever Eyes: No: Visual changes HENT: No: Headaches Cardiovascular: No: Chest Pain or Discomfort Respiratory: Positive: Cough, Shortness of Breath, Wheezing Gastrointestinal: No: Abdominal Pain Genitourinary: No: Dysuria Musculoskeletal: No: Pain Skin: No Rash Neurologic: No: Weakness Psychiatric: No: Depression Endocrine: No: Polydipsia Hematologic/Lymphatic: No: Easy Bruising Physical Exam Narrative GENERAL: Moderate distress SKIN: Focused skin assessment warm/dry. HEAD: Atraumatic. Normocephalic. EYES: Pupils equal and round. No scleral icterus. No injection or drainage. ENT: No nasal bleeding or discharge. Mucous membranes pink and moist. NECK: Trachea midline. No JVD. CARDIOVASCULAR: Regular rate and rhythm. No murmur appreciated. RESPIRATORY: Diffuse scattered wheezing. Breath sounds equal bilaterally. GASTROINTESTINAL: Abdomen soft, non-tender, nondistended. Hepatic and splenic margins not palpable. MUSCULOSKELETAL: No obvious deformities. No clubbing. No cyanosis. No edema. NEUROLOGICAL: Awake and alert. No obvious cranial nerve deficits. Motor grossly within normal limits. Normal speech. PSYCHIATRIC: Appropriate mood and affect; insight and judgment normal. Data Data Last Documented VS Vital Signs Date Time Temp Pulse Resp B/P (MAP) Pulse Ox O2 Delivery O2 Flow Rate FiO2 01/23/18 13:16 95 Room Air 01/23/18 13:09 18 01/23/18 13:09 25 01/23/18 13:04 97.8 Orders Orders Complete Blood Count With Diff (01/23/18 13:14) Basic Metabolic Panel (Bmp) (01/23/18 13:14) Chest, Pa & Lat (01/23/18 13:14) Blood Culture (01/23/18 13:14) Iv Access Insert/Monitor (01/23/18 13:14) Ecg Monitoring (01/23/18 13:14) Oxygen Administration (01/23/18 13:14) Oximetry (01/23/18 13:14) Electrocardiogram (01/23/18 13:14) Influenzae A/B Antigen (01/23/18 13:19) Methylprednisolone So Succ Inj (Solumedr (01/23/18 13:30) Albuterol-Ipratropium Neb (Duoneb Neb) (01/23/18 13:30) Sodium Chlor 0.9% 1000 Ml Inj (Ns 1000 M (01/23/18 13:30) Albuterol Neb (Albuterol Neb) (01/23/18 14:30) Admit Order (Ed Use Only) (01/23/18 14:29) Labs Laboratory Tests Test 01/23/18 13:15 White Blood Count 5.2 TH/MM3 Red Blood Count 4.73 MIL/MM3 Hemoglobin 13.7 GM/DL Hematocrit 41.0 % Mean Corpuscular Volume 86.7 FL Mean Corpuscular Hemoglobin 29.0 PG Mean Corpuscular Hemoglobin Concent 33.4 % Red Cell Distribution Width 13.8 % Platelet Count 284 TH/MM3 Mean Platelet Volume 8.4 FL Neutrophils (%) (Auto) 79.1 % Lymphocytes (%) (Auto) 16.5 % Monocytes (%) (Auto) 4.2 % Eosinophils (%) (Auto) 0.0 % Basophils (%) (Auto) 0.2 % Neutrophils # (Auto) 4.1 TH/MM3 Lymphocytes # (Auto) 0.9 TH/MM3 Monocytes # (Auto) 0.2 TH/MM3 Eosinophils # (Auto) 0.0 TH/MM3 Basophils # (Auto) 0.0 TH/MM3 CBC Comment DIFF FINAL Differential Comment Blood Urea Nitrogen 18 MG/DL Creatinine 1.01 MG/DL Random Glucose 121 MG/DL Calcium Level 8.7 MG/DL Sodium Level 144 MEQ/L Potassium Level 4.0 MEQ/L Chloride Level 110 MEQ/L Carbon Dioxide Level 25.3 MEQ/L Anion Gap 9 MEQ/L Estimat Glomerular Filtration Rate 80 ML/MIN MDM Medical Decision Making Medical Screen Exam Complete: Yes Emergency Medical Condition: Yes Medical Record Reviewed: Yes Interpretation(s) EKG at 1432: NSR at 98bpm, qt/qtc: 339/394, no acute st or t wave changes Vital Signs Date Time Temp Pulse Resp B/P (MAP) Pulse Ox O2 Delivery O2 Flow Rate FiO2 01/23/18 13:16 95 Room Air 01/23/18 13:16 95 Room Air 01/23/18 13:09 18 95 Room Air 01/23/18 13:09 115 25 119/82 (94) 95 Room Air 01/23/18 13:04 97.8 111 26 150/70 (96) 96 Differential Diagnosis asthma exacerbation, pneumonia, influenza, electrolyte abnormality, pneumothorax Narrative Course During the course of the patients emergency department visit, the patients history, examination, and differential diagnosis were reviewed with the patient. The patient was placed on a media monitor with oximetry and frequent blood pressure monitoring. The patient had an IV access obtained and blood work sent for analysis. The patient was initially provided IVF, IV solumedrol as well as 2 Duonebs. The patients laboratory studies were reviewed and remarkable for: CBC & BMP Diagram 01/23/18 13:15 Calcium Level 8.7 Radiology studies were reviewed and remarkable for Last Impressions Chest X-Ray 01/23/18 1314 Signed Impressions: Service Date/Time: Sunday, January 23, 2018 13:28 - CONCLUSION: Normal examination. Dayo Sarabia MD Patient reevaluated, patient with improvement after 3 DuoNeb's. Patient does have some wheezing on exam, another nebulizer treatment was ordered for him. Vital signs are stable, labs are stable, influenza is negative plan to admit to the RDU case reviewed with Dr. Forte who accepts pt to RDU Diagnosis Primary Impression: Asthma exacerbation Qualified Codes: J45.41 - Moderate persistent asthma with (acute) exacerbation Admitting Information Admitting Physician Requests: Raquel Burr DO Jan 23, 2018 13:28
[2018-01-23] MEDS ORDERED: SODIUM CHLOR 0.9% 1000 ML INJ 1,000 ML IV ONE (13:30)
[2018-01-23] MEDS ORDERED: methylPREDNISolone SOD SUCC 125 MG/2 ML VIAL IV PUSH ONE (13:30)
[2018-01-23 13:35] LABS: AUTOMATED NEUTROPHIL # 4.1 TH/MM3 (1.8-7.7); BASOPHIL % 0.2 % (0.0-2.0); HEMOGLOBIN 13.7 GM/DL (13.0-17.0); LYMPH % 16.5 % (9.0-44.0); LYMPHOCYTE # 0.9 TH/MM3 (1.0-4.8); MEAN CELL VOLUME 86.7 FL (80.0-100.0); MEAN CORPUSCULAR HGB CONC 33.4 % (32.0-36.0); MEAN PLATELET VOLUME 8.4 FL (7.0-11.0); MONO % 4.2 % (0.0-8.0); MONOCYTE # 0.2 TH/MM3 (0-0.9); NEUT % 79.1 % (16.0-70.0); PLATELET COUNT 284 TH/MM3 (150-450); RED BLOOD COUNT 4.73 MIL/MM3 (4.50-5.90); RED CELL DISTRIBUTION WIDTH 13.8 % (11.6-17.2); WHITE BLOOD COUNT 5.2 TH/MM3 (4.0-11.0)
[2018-01-23] MEDS: RESP: ALBUTEROL 2.5 MG/IPRATROPIUM 0.5 MG NEB (SCH) INH ×2 (13:45→13:46)
[2018-01-23 13:46] LABS: BICARBONATE 25.3 MEQ/L (21.0-32.0); CALCIUM 8.7 MG/DL (8.5-10.1); CREATININE 1.01 MG/DL (0.60-1.30)
--- NOTE | 2018-01-23 13:52 | RADRPT ---
EXAM DATE/TIME: 01/23/2018 13:28 [facility] COMPARISON: CHEST SINGLE AP, January 17, 2018, 17:51. INDICATIONS : Short of breath. Cough. Chest tightness. MEDICAL HISTORY : Stroke. Hypertension SURGICAL HISTORY : Fusion, lumbar. ENCOUNTER: Subsequent ACUITY: 1 day PAIN SCORE: 0/10 LOCATION: Bilateral chest FINDINGS: PA and lateral views of the chest demonstrate the lungs to be symmetrically aerated without evidence of mass, infiltrate or effusion. The cardiomediastinal contours are unremarkable. Osseous structure s are intact. CONCLUSION: Normal examination. Dayo Sarabia MD on January 23, 2018 at 13:50 Board Certified Radiologist. This report was verified electronically.
[2018-01-23] MEDS: RESP: ALBUTEROL 2.5 MG/3 ML NEB (SCH) INH ×2 (14:23→14:24)
[2018-01-23] MEDS ORDERED: LORazepam 0.5 MG TAB PO PRN (15:00)
[2018-01-23] MEDS ORDERED: NALOXONE HCL 0.4 MG/ML AMP IV PUSH PRN (15:00)
[2018-01-23] MEDS ORDERED: SODIUM CHLORIDE 0.9% FLUSH 10 ML FLUSH IV FLUSH PRN (15:00)
[2018-01-23] MEDS ORDERED: ACETAMINOPHEN 325 MG TAB PO PRN ×2 (15:00)
[2018-01-23] MEDS ORDERED: BENZONATATE 100 MG CAP PO PRN (15:15)
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
[2018-01-23] MEDS ORDERED: BUDESONIDE-FORMOTEROL 160/4.5 MCG INHALER INH SCH (15:30)
[2018-01-23] MEDS ORDERED: BENZONATATE 100 MG CAP PO ONE (15:30)
[2018-01-23] MEDS ORDERED: RESP: ALBUTEROL 2.5 MG/IPRATROPIUM 0.5 MG NEB (PRN) NEB (15:30)
--- NOTE | 2018-01-23 17:21 | MB ---
cc: Afia Bose MD DATE: 01/23/2018 HISTORY OF PRESENT ILLNESS: This is a 47-year-old white male with a history of asthma since childhood, who was recently admitted through the ED with influenza. He has actually been here for an admission with severe acute pneumonia, probable aspiration in October and then 4 or 5 subsequent ER visits, the most recent 01/17, at which time he was found to have influenza and was treated with Tamiflu. He lives alone, tries to manage his own affairs, but he is bipolar. He came in today because he was more short of breath and his nebulizer was not working adequately. On presentation, he was noted to be dyspneic, but O2 saturations are stable on room air at 95%. He was wheezing extensively. He uses 2 inhalers at home and he has a nebulizer, but he does not recall the name of the inhalers. He has had no chest pain, no hemoptysis. Denies purulent sputum, just short of breath. He was seen by Dr. Wilhelm during the October admission and was thought to probably have sleep disordered breathing, but there has been no followup in that regard. He has no animals at home. Has no specific allergies to inhalation agents, although HE IS ALLERGIC TO MELON, TOMATOES AND WATERMELONS. He does not smoke. He has never smoked. He denies any illicit drug use. PAST MEDICAL HISTORY: Other than that noted above, he has had a lumbosacral spine fusion for degenerative arthritis. MEDICATIONS: Reviewed in the EMR and listed as active, albuterol/Atrovent nebulized treatments, Symbicort must be the inhaler that he uses. He takes Protonix for heartburn and takes several drugs for bipolar disorder. SOCIAL HISTORY: Noted above. Denies alcohol use. PHYSICAL EXAMINATION: GENERAL: Obese white male, no distress at rest. VITAL SIGNS: Afebrile, pulse is 100, blood pressure is 130/70, respirations are 22, nonlabored. HEENT: Sclerae anicteric. NECK: Veins are flat. RESPIRATORY: Diffuse wheezing throughout both lungs, very little congestion. HEART: No harsh murmur. No audible S3. ABDOMEN: Obese. EXTREMITIES: He has some discoloration in the legs, but no edema. He says that has been like that for years. He has not ever had that evaluated, but had no calf tenderness or again, no edema with this. LABORATORY AND DIAGNOSTIC DATA: Chest x-ray is clear. Influenza A and B antigens are negative. White count is 5200, hemoglobin is 13. BUN and creatinine are normal. ASSESSMENT AND PLAN: Mr. Khan presents with dyspnea and diffuse wheezing. He has had a recent diagnosis of influenza, probably precipitated this asthma exacerbation. Since he is afebrile with a normal white count and a normal chest x-ray, I do not think he needs antibiotics, but we will continue him on nebulized aerosol treatments and I will switch him to IV corticosteroids for the next 24 hours. We will do a spirometry tomorrow to assess the severity of his obstruction, and my suspicion is he is going to need at least 48 hours, possibly more to settle this down in light of the recent influenza. Social circumstances are probably not best either, which will require some additional supervision. Further diagnostic and/or therapeutic intervention will depend on his response and ongoing clinical course. R. MD ADRIENNE Dc/SOLOMON , 04:42 PM , 05:20 PM
--- NOTE | 2018-01-23 17:47 | RADRPT ---
EXAM DATE/TIME: 01/23/2018 17:30 [facility] COMPARISON: No previous studies available for comparison. INDICATIONS : Patient complains of headache and sinusitis RADIATION DOSE: 9.21 CTDIvol (mGy) MEDICAL HISTORY : Seizures. Hypertension. asthma SURGICAL HISTORY : None. ENCOUNTER: Initial ACUITY: 1 day PAIN SCORE: 2/10 LOCATION: cranial TECHNIQUE: Volumetric scanning of the paranasal sinuses was performed. Using automated exposure control and adj ustment of the mA and/or kV according to patient size, radiation dose was kept as low as reasonably a chievable to obtain optimal diagnostic quality images. DICOM format image data is available electro nically for review and comparison. FINDINGS: MAXILLARY SINUSES: There's air fluid level both maxillary sinuses. ETHMOID SINUSES: There are number of opacified ethmoidal sinuses are. Fovea ethmoidal and lamina papyracea are symmet mike and intact. SPHENOID SINUSES: There some fluid in both sphenoid sinuses right greater than left. mucosal thickening or fluid. Sphe noethmoidal recesses are patent. No bony dehiscence. FRONTAL SINUSES: Normal. No significant mucosal thickening or fluid. Frontal recesses are patent. No anomalous fron hedy air cells. NASAL FOSSA: Normal. The nasal septum is bowed to the right. In the. No layla bullosa or paradoxical turbinates a re identified. OTHER: Normal. Limited views of the skull base and orbits are unremarkable. CONCLUSION: Scattered sinus disease in the maxillary, ethmoid and sphenoid sinuses. Air-fluid levels in the maxil agnieszka sinuses. Dayo Sarabia MD on January 23, 2018 at 17:43 Board Certified Radiologist. This report was verified electronically.
[2018-01-23] MEDS: RESP: ALBUTEROL 2.5 MG/IPRATROPIUM 0.5 MG NEB (SCH) NEB ×2 (18:33→20:43)
[2018-01-23] MEDS ORDERED: RESP: ALBUTEROL 2.5 MG/IPRATROPIUM 0.5 MG NEB (SCH) NEB (20:00)
[2018-01-23] MEDS ORDERED: methylPREDNISolone SOD SUCC 40 MG/1 ML VIAL IV PUSH ONE ×2 (20:00)
[2018-01-23] MEDS ORDERED: predniSONE 20 MG TAB PO SCH (21:00)
[2018-01-23] MEDS: SODIUM CHLORIDE 0.9% FLUSH 10 ML FLUSH IV FLUSH SCH (21:20)
[2018-01-23] MEDS: methylPREDNISolone SOD SUCC 40 MG/1 ML VIAL IV PUSH SCH (21:20)
[2018-01-23] MEDS: TAMSULOSIN HCL 0.4 MG CAP PO SCH (21:21)
[2018-01-23] MEDS: DIVALPROEX SODIUM E.R. 250 MG TAB PO SCH (21:21)
[2018-01-23] MEDS: GABAPENTIN 400 MG CAP PO SCH (21:21)
[2018-01-24] VITALS (9 sets, daily range): BP systolic 116–157; BP diastolic 58–74; PULSE 56–108; RESP 16–18; TEMP 97.6–98.3; O2SAT 92–98
[2018-01-24] MEDS: RESP: ALBUTEROL 2.5 MG/IPRATROPIUM 0.5 MG NEB (SCH) NEB ×4 (03:27→19:48)
[2018-01-24] MEDS: methylPREDNISolone SOD SUCC 40 MG/1 ML VIAL IV PUSH SCH ×3 (04:10→22:34)
[2018-01-24] MEDS: TAMSULOSIN HCL 0.4 MG CAP PO SCH ×2 (08:49→22:35)
[2018-01-24] MEDS: SODIUM CHLORIDE 0.9% FLUSH 10 ML FLUSH IV FLUSH SCH ×2 (08:49→22:35)
[2018-01-24] MEDS: FENOFIBRATE 145 MG TAB PO SCH (08:49)
[2018-01-24] MEDS: DIVALPROEX SODIUM E.R. 250 MG TAB PO SCH ×2 (08:49→22:35)
[2018-01-24] MEDS: GABAPENTIN 400 MG CAP PO SCH ×2 (08:49→22:36)
[2018-01-24] MEDS: PANTOPRAZOLE SOD 20 MG DELAYED RELEASE TAB PO SCH (08:50)
[2018-01-24] MEDS: FLUoxetine HCL 20 MG CAP PO SCH (08:50)
[2018-01-24] MEDS: CEFUROXIME AXETIL 500 MG TAB PO SCH (13:37)
[2018-01-24] MEDS: SODIUM CHLORIDE 0.65% NASAL SPRAY 45 ML BTL EACH NARE SCH ×3 (13:37→22:34)
--- NOTE | 2018-01-24 13:55 | HHI.PR ---
Subjective Remarks The patient was resting comfortably. He still has shortness of breath. He said he had no acute complaints. Discussed with nursing. Objective Vitals Vital Signs Date Time Temp Pulse Resp B/P (MAP) Pulse Ox O2 Delivery O2 Flow Rate FiO2 01/24/18 11:20 97.8 87 16 157/70 (99) 95 01/24/18 08:31 95 Nasal Cannula 2.00 01/24/18 08:07 98.0 65 16 119/69 (86) 95 01/24/18 04:11 56 16 95 01/24/18 03:41 98.3 108 16 153/65 (94) 92 01/24/18 00:57 97.6 63 18 143/74 (97) 98 01/23/18 21:29 99 95 01/23/18 20:46 97 Nasal Cannula 3.00 01/23/18 20:28 98.1 102 16 157/77 (103) 91 01/23/18 18:34 93 Nasal Cannula 2.00 01/23/18 15:42 98.2 107 18 137/69 (91) 91 01/23/18 15:31 I/O 01/23/18 01/23/18 01/23/18 01/24/18 01/24/18 01/24/18 07:00 15:00 23:00 07:00 15:00 23:00 Intake Total 500 ml 1000 ml Output Total 250 ml Balance 250 ml 1000 ml Intake Oral 500 ml IV Total 1000 ml Output Urine Total 250 ml Result Diagram: 01/23/18 1315 01/23/18 1315 Imaging Last Impressions Chest X-Ray 01/23/18 1314 Signed Impressions: Service Date/Time: Tuesday, January 23, 2018 13:28 - CONCLUSION: Normal examination. Dayo Sarabia MD Sinuses CT 01/23/18 0000 Signed Impressions: Service Date/Time: Tuesday, January 23, 2018 17:30 - CONCLUSION: Scattered sinus disease in the maxillary, ethmoid and sphenoid sinuses. Air-fluid levels in the maxillary sinuses. Dayo Sarabia MD Objective Remarks GENERAL: Coughing. SKIN: Focused skin assessment warm/dry. HEAD: Atraumatic. Normocephalic. EYES: Pupils equal and round. No scleral icterus. No injection or drainage. ENT: No nasal bleeding or discharge. Mucous membranes pink and moist. NECK: Trachea midline. No JVD. CARDIOVASCULAR: Regular rate and rhythm. No murmur appreciated. RESPIRATORY: Diffuse wheezing. Breath sounds equal bilaterally. GASTROINTESTINAL: Abdomen soft, non-tender, nondistended. Hepatic and splenic margins not palpable. MUSCULOSKELETAL: No obvious deformities. No clubbing. No cyanosis. No edema. NEUROLOGICAL: Awake and alert. No obvious cranial nerve deficits. Motor grossly within normal limits. Normal speech. PSYCHIATRIC: Calm. Medications and IVs Current Medications Medications (Trade) Dose Ordered Sig/Anna Route Start Time Stop Time Status Last Admin (Abilify) 20 mg HS PO 01/23/18 21:00 01/23/18 21:20 (Depakote Er) 750 mg BID PO 01/23/18 21:00 01/24/18 08:49 (Tricor) 145 mg DAILY PO 01/24/18 09:00 01/24/18 08:49 (PROzac) 20 mg DAILY PO 01/24/18 09:00 01/24/18 08:50 (Neurontin) 800 mg BID PO 01/23/18 21:00 01/24/18 08:49 (Ativan) 0.5 mg BID PRN PO 01/23/18 15:00 (Protonix) 20 mg DAILY PO 01/24/18 09:00 01/24/18 08:50 (Flomax) 0.4 mg BID PO 01/23/18 21:00 01/24/18 08:49 (NS Flush) 2 ml UNSCH PRN IV FLUSH 01/23/18 15:00 (NS Flush) 2 ml BID IV FLUSH 01/23/18 21:00 01/24/18 08:49 (Tylenol) 650 mg Q4H PRN PO 01/23/18 15:00 (Tylenol) 650 mg Q6H PRN PO 01/23/18 15:00 (Narcan Inj) 0.4 mg UNSCH PRN IV PUSH 01/23/18 15:00 (Tessalon) 200 mg TID PRN PO 01/23/18 15:15 01/24/18 08:50 (Duoneb Neb) 1 ampule Q2HR NEB PRN NEB 01/23/18 15:30 01/24/18 01:16 (Duoneb Neb) 1 ampule Q6HR NEB NEB 01/23/18 17:30 01/24/18 08:31 (SoluMEDROL INJ) 40 mg Q8H IV PUSH 01/23/18 20:00 01/24/18 12:58 (Ceftin) 500 mg Q12H PO 01/24/18 14:00 01/24/18 13:37 (Doniphan Romulo [place]) 2 spray QID EACH NARE 01/24/18 13:00 01/24/18 13:37 A/P Assessment and Plan Acute asthma exacerbation The pt has recently been treated with Tamiflu and antibiotics. CXR unremarkable. Coughing a lot. Endorses clear mucous production. Pulmonology consult appreciated. - standing and as needed nebs. - IV Solu-Medrol. - incentive spirometry. Encourage ambulation. - Ceftin. - Physical therapy evaluation. Bipolar disorder Mood seems stable at this time. - continue home meds. PPx: Ricky Kebede DO Jan 24, 2018 13:55
--- NOTE | 2018-01-24 16:33 | EKG ---
Date Performed: 01/23/2018 Time Performed: 14:32:08 PTAGE: 47 years EKG: Sinus rhythm NORMAL ECG PREVIOUS TRACING : 02/27/2016 01.00 Since the previous tracing, no significant change noted DOCTOR: Miguel Luna Interpretating Date/Time 01/24/2018 16:28:49
--- NOTE | 2018-01-24 16:33 | EKG ---
Date Performed: 01/23/2018 Time Performed: 16:11:51 PTAGE: 47 years EKG: Sinus rhythm NORMAL ECG PREVIOUS TRACING : 01/23/2018 14.32 Since the previous tracing, no significant change noted DOCTOR: Miguel Luna Interpretating Date/Time 01/24/2018 16:28:57
[2018-01-25 00:25] VITALS: BP 147/56; PULSE 59; RESP 20; TEMP 98; O2SAT 97
[2018-01-25] MEDS: RESP: ALBUTEROL 2.5 MG/IPRATROPIUM 0.5 MG NEB (SCH) NEB ×3 (02:45→16:15)
[2018-01-25] MEDS: CEFUROXIME AXETIL 500 MG TAB PO SCH ×2 (03:00→12:55)
[2018-01-25] MEDS: methylPREDNISolone SOD SUCC 40 MG/1 ML VIAL IV PUSH SCH ×2 (03:00→12:55)
[2018-01-25 04:45] VITALS: BP 116/68; PULSE 59; RESP 16; TEMP 97.8; O2SAT 95
[2018-01-25 07:50] VITALS: BP 122/70; PULSE 86; RESP 16; TEMP 97.6; O2SAT 95
[2018-01-25] MEDS: SODIUM CHLORIDE 0.65% NASAL SPRAY 45 ML BTL EACH NARE SCH ×2 (08:45→12:55)
[2018-01-25] MEDS: FENOFIBRATE 145 MG TAB PO SCH (08:46)
[2018-01-25] MEDS: GABAPENTIN 400 MG CAP PO SCH (08:46)
[2018-01-25] MEDS: SODIUM CHLORIDE 0.9% FLUSH 10 ML FLUSH IV FLUSH SCH (08:46)
[2018-01-25] MEDS: TAMSULOSIN HCL 0.4 MG CAP PO SCH (08:46)
[2018-01-25] MEDS: FLUoxetine HCL 20 MG CAP PO SCH (08:47)
[2018-01-25] MEDS: DIVALPROEX SODIUM E.R. 250 MG TAB PO SCH (08:47)
[2018-01-25] MEDS: PANTOPRAZOLE SOD 20 MG DELAYED RELEASE TAB PO SCH (08:47)
[2018-01-25 09:43] VITALS: O2SAT 93
[2018-01-25 11:16] VITALS: BP 123/56; PULSE 98; RESP 20; TEMP 97.6; O2SAT 94
--- NOTE | 2018-01-25 12:06 | HHI.PR ---
Subjective Remarks The patient was feeling better and wanted to go home. He said that he was still coughing but his cough was better. No acute concerns at this time. Discussed with nursing. Objective Vitals Vital Signs Date Time Temp Pulse Resp B/P (MAP) Pulse Ox O2 Delivery O2 Flow Rate FiO2 01/25/18 11:16 97.6 98 20 123/56 (78) 94 01/25/18 09:43 93 21 01/25/18 07:50 97.6 86 16 122/70 (87) 95 01/25/18 04:45 97.8 59 16 116/68 (84) 95 01/25/18 00:25 98.0 59 20 147/56 (86) 97 01/24/18 20:02 98.0 68 18 116/60 (78) 95 01/24/18 19:50 96 Nasal Cannula 2.00 01/24/18 16:53 97.9 70 16 125/58 (80) 95 I/O 01/24/18 01/24/18 01/24/18 01/25/18 01/25/18 01/25/18 07:00 15:00 23:00 07:00 15:00 23:00 Intake Total 500 ml 1000 ml 600 ml Output Total 250 ml 725 ml Balance 250 ml 1000 ml -125 ml Intake Oral 500 ml 600 ml IV Total 1000 ml Output Urine Total 250 ml 725 ml Result Diagram: 01/23/18 1315 01/23/18 1315 Imaging Last Impressions Chest X-Ray 01/23/18 1314 Signed Impressions: Service Date/Time: Tuesday, January 23, 2018 13:28 - CONCLUSION: Normal examination. Dayo Sarabia MD Sinuses CT 01/23/18 0000 Signed Impressions: Service Date/Time: Tuesday, January 23, 2018 17:30 - CONCLUSION: Scattered sinus disease in the maxillary, ethmoid and sphenoid sinuses. Air-fluid levels in the maxillary sinuses. Dayo Sarabia MD Objective Remarks GENERAL: Coughing. SKIN: Focused skin assessment warm/dry. HEAD: Atraumatic. Normocephalic. EYES: Pupils equal and round. No scleral icterus. No injection or drainage. ENT: No nasal bleeding or discharge. Mucous membranes pink and moist. NECK: Trachea midline. No JVD. CARDIOVASCULAR: Regular rate and rhythm. No murmur appreciated. RESPIRATORY: Diffuse wheezing. Breath sounds equal bilaterally. GASTROINTESTINAL: Abdomen soft, non-tender, nondistended. Hepatic and splenic margins not palpable. MUSCULOSKELETAL: No obvious deformities. No clubbing. No cyanosis. No edema. NEUROLOGICAL: Awake and alert. No obvious cranial nerve deficits. Motor grossly within normal limits. Normal speech. PSYCHIATRIC: Mood and affect appropriate. Medications and IVs Current Medications Medications (Trade) Dose Ordered Sig/Anna Route Start Time Stop Time Status Last Admin (Abilify) 20 mg HS PO 01/23/18 21:00 01/24/18 22:35 (Depakote Er) 750 mg BID PO 01/23/18 21:00 01/25/18 08:47 (Tricor) 145 mg DAILY PO 01/24/18 09:00 01/25/18 08:46 (PROzac) 20 mg DAILY PO 01/24/18 09:00 01/25/18 08:47 (Neurontin) 800 mg BID PO 01/23/18 21:00 01/25/18 08:46 (Ativan) 0.5 mg BID PRN PO 01/23/18 15:00 (Protonix) 20 mg DAILY PO 01/24/18 09:00 01/25/18 08:47 (Flomax) 0.4 mg BID PO 01/23/18 21:00 01/25/18 08:46 (NS Flush) 2 ml UNSCH PRN IV FLUSH 01/23/18 15:00 (NS Flush) 2 ml BID IV FLUSH 01/23/18 21:00 01/25/18 08:46 (Tylenol) 650 mg Q4H PRN PO 01/23/18 15:00 (Tylenol) 650 mg Q6H PRN PO 01/23/18 15:00 (Narcan Inj) 0.4 mg UNSCH PRN IV PUSH 01/23/18 15:00 (Tessalon) 200 mg TID PRN PO 01/23/18 15:15 01/24/18 08:50 (Duoneb Neb) 1 ampule Q2HR NEB PRN NEB 01/23/18 15:30 01/24/18 01:16 (Duoneb Neb) 1 ampule Q6HR NEB NEB 01/23/18 17:30 01/25/18 09:43 (SoluMEDROL INJ) 40 mg Q8H IV PUSH 01/23/18 20:00 01/25/18 03:00 (Ceftin) 500 mg Q12H PO 01/24/18 14:00 01/25/18 03:00 (Jones Romulo Chalmers) 2 spray QID EACH NARE 01/24/18 13:00 01/25/18 08:45 A/P Assessment and Plan Acute asthma exacerbation The pt has recently been treated with Tamiflu and antibiotics. CXR unremarkable. Coughing a lot. Endorses clear mucous production. Pulmonology consult appreciated. - standing and as needed nebs. - continue IV Solu-Medrol. - incentive spirometry. Encourage ambulation. - Ceftin. - Physical therapy evaluation. - will need walk test prior to discharge. Sinus disease CT sinus positive for sinus disease. - continue Ceftin. Bipolar disorder Mood seems stable at this time. - continue home meds. PPx: SCDs Discharge Planning Need to assess need for home oxygen Ricky Floyd DO Jan 25, 2018 12:06
[2018-01-25] MEDS ORDERED: PRED20 PO (15:43)
[2018-01-25] MEDS ORDERED: BENZ100 PO (15:43)
[2018-01-25] MEDS ORDERED: CEFU1TAB20 PO (15:43)
--- NOTE | 2018-01-25 15:44 | HHI.DS ---
Discharge Summary Admission Date Jan 25, 2018 at 11:59 Discharge Date: Jan 25, 2018 Admitting Diagnosis asthma exacerbation (1) Asthma exacerbation ICD Code: J45.901 - Unspecified asthma with (acute) exacerbation Diagnosis: Principal Status: Acute Procedures None Brief History - From Admission The patient is a 47-year-old male with a past medical history of asthma and bipolar disorder who is presenting to the hospital with shortness of breath. He says that he has had asthma since childhood. He said he has been to the hospital multiple times recently. He says that his home albuterol has not been helping. He has been using that 3-4 times a day. He says he does not have any nebulizers. He says he recently completed medications for the flu. He also completed antibiotics. He does not have a lung doctor. He does endorse some green mucus production. He denies any fevers. He says he has been ambulatory. He denies any dysuria. He has been coughing a lot. CBC/BMP: 01/23/18 1315 01/23/18 1315 Significant Findings Laboratory Tests Test 01/23/18 13:15 Neutrophils (%) (Auto) 79.1 % (16.0-70.0) Lymphocytes # (Auto) 0.9 TH/MM3 (1.0-4.8) Random Glucose 121 MG/DL (74-106) Chloride Level 110 MEQ/L (98-107) Estimat Glomerular Filtration Rate 80 ML/MIN (>89) PE at Discharge GENERAL: Coughing. SKIN: Focused skin assessment warm/dry. HEAD: Atraumatic. Normocephalic. EYES: Pupils equal and round. No scleral icterus. No injection or drainage. ENT: No nasal bleeding or discharge. Mucous membranes pink and moist. NECK: Trachea midline. No JVD. CARDIOVASCULAR: Regular rate and rhythm. No murmur appreciated. RESPIRATORY: Diffuse wheezing. Breath sounds equal bilaterally. GASTROINTESTINAL: Abdomen soft, non-tender, nondistended. Hepatic and splenic margins not palpable. MUSCULOSKELETAL: No obvious deformities. No clubbing. No cyanosis. No edema. NEUROLOGICAL: Awake and alert. No obvious cranial nerve deficits. Motor grossly within normal limits. Normal speech. PSYCHIATRIC: Mood and affect appropriate. Hospital Course Acute asthma exacerbation The pt has recently been treated with Tamiflu and antibiotics. CXR was unremarkable. The pt has been coughing a lot. He endorsed clear mucous production. Pulmonology was consulted. We started standing and as needed nebs. He was received IV Solu-Medrol, incentive spirometry and we encouraged ambulation. He was started on Ceftin. He had a physical therapy evaluation. He passed the oxygen walk test. He will complete a prednisone taper and a course of Ceftin. He will follow up with pulmonology as an outpt. Sinus disease CT sinus positive for sinus disease. He will continue Ceftin upon discharge. Pt Condition on Discharge: Stable Discharge Disposition: Discharge Home Discharge Time: > 30 minutes Discharge Instructions DIET: Follow Instructions for: As Tolerated, No Restrictions Activities you can perform: Regular-No Restrictions Follow up Referrals: PCP Follow-up - 1 Week Pulmonology - 1 Week with Afia Bose MD New Medications: Prednisone (Prednisone) 20 Mg Tab 20 MG PO DAILY for Broncospasm for 5 Days, #5 TAB 0 Refills Benzonatate (Tessalon Perles) 100 Mg Cap 200 MG PO TID PRN for cough, #30 CAP Cefuroxime (Cefuroxime) 500 Mg Tab 500 MG PO Q12H for Infection, #6 TAB Continued Medications: Albuterol 8.5 GM Inh (Proair Hfa 8.5 GM Inh) 90 Mcg/Act Aer 2 PUFF INH Q4-6H PRN for SHORTNESS OF BREATH, #1 INHALER 0 Refills 108 mcg/actuation Aripiprazole (Abilify) 20 Mg Tab 20 MG PO HS, #30 TAB 0 Refills Budesonide-Formoterol Inh (Symbicort Inh) 160-4.5 Mcg/Act Aero 2 PUFF INH BID for health, #1 BOTTLE 0 Refills Divalproex ER (Depakote ER) 250 Mg [place] 750 MG PO BID for Agitation, #60 TAB Fenofibrate (Fenofibrate) 145 Mg Tab 145 MG PO DAILY for health, #30 TAB 0 Refills Fluoxetine (Fluoxetine) 20 Mg Capsule 20 MG PO DAILY for Depression Control, #30 CAP Fluticasone-Vilanterol Inh (Breo Ellipta Inh) 100-25 Mcg/Act Inh 1 PUFF INH DAILY, #1 INHALER 0 Refills Use daily at the same time. Gabapentin (Gabapentin) 800 Mg Tab 800 MG PO BID, TAB 0 Refills Haloperidol (Haloperidol) 0.5 Mg Tab 0.5 MG PO TID for Anxiety, #90 TAB 0 Refills Lactulose (Lactulose) 10 Gram/15 Ml (15 Ml) Solution QID Lorazepam (Lorazepam) 0.5 Mg Tab 0.5 MG PO BID PRN for ANXIETY, TAB 0 Refills Pantoprazole (Protonix) 20 Mg Tab 20 MG PO DAILY for Reflux, #30 TAB 0 Refills Tamsulosin (Flomax) 0.4 Mg Cap 0.4 MG PO BID for health, #60 CAP 0 Refills Zolpidem (Ambien) 10 Mg Tab 10 MG PO HS PRN for INSOMNIA for 30 Days, #30 TAB 0 Refills Discontinued Medications: Metronidazole (Flagyl) 500 Mg Tab 500 MG PO BID for Infection for 10 Days, #20 TAB 0 Refills Oseltamivir (Tamiflu) 75 Mg Cap 75 MG PO BID for Mgmt Viral Infection for 7 Days, #14 CAP 0 Refills Prednisone (Prednisone) 20 Mg Tab 40 MG PO DAILY for 3 Days, #6 TAB 0 Refills Take 40 mg (2 tablets) daily for 5 days Ricky Flody DO Jan 25, 2018 15:44
--- NOTE | 2018-01-25 15:48 | HHI.DCPOC ---
Discharge Care Plan Diagnosis: (1) Asthma exacerbation Goals to Promote Your Health * To prevent worsening of your condition and complications * To maintain your health at the optimal level Directions to Meet Your Goals Take your medications as prescribed Follow your dietary instruction Follow activity as directed Keep your appointments as scheduled Take your immunizations and boosters as scheduled If your symptoms worsen call your PCP, if no PCP go to Urgent Care Center or Emergency Room Smoking is Dangerous to Your Health. Avoid second hand smoke Call the 24-hour hour crisis hotline for domestic abuse at Ricky Floyd DO Jan 25, 2018 15:48
--- NOTE | 2018-01-28 10:10 | RSPPFT ---
DATE OF PROCEDURE: 01/25/18 COMMENTS: VOLUMES DYNAMIC: FVC and FEV1 moderately reduced. FLOWS: FEV1% normal; FEF 25-75 severely reduced. FLOW VOLUME LOOP: Pattern of variable intrathoracic airways obstruction with restriction. IMPRESSION: Moderately severe obstructive ventilatory defect with minimal improvement post-bronchodilator. A co-existent restrictive defect is suspected but full lung volumes would be necessary to clarify.
== END 2018-01-25 16:58 | disposition home or self-care (01) | DRG 203 ==
LOC: NEPC 13:00 → NEDA 14:31 → NEPFCDU 15:43 → OBSVTOIN 01-25 11:59
PROVIDERS: ADMIT Hospitalist; ATTEND Hospitalist
DX: J45.901 Unspecified asthma with (acute) exacerbation (principal); I10 Essential (primary) hypertension; F41.9 Anxiety disorder, unspecified; F31.9 Bipolar disorder, unspecified; J32.9 Chronic sinusitis, unspecified; J44.9 Chronic obstructive pulmonary disease, unspecified; E78.00 Pure hypercholesterolemia, unspecified; G47.30 Sleep apnea, unspecified; G47.00 Insomnia, unspecified; R62.50 Unspecified lack of expected normal physiological development in childhood; M19.90 Unspecified osteoarthritis, unspecified site; Z91.018 Allergy to other foods; Z86.73 Personal history of transient ischemic attack (TIA), and cerebral infarction without residual deficits; Z98.1 Arthrodesis status; Z87.01 Personal history of pneumonia (recurrent)
CPT/HCPCS: 70486; 71046; 80048; 85025; 87040; 87205; 87804; 93005; 94150; 94618; 94640; 94664; G8987-GP; G8988-GP; J2920; J2930; J7030; J7613

== ENCOUNTER 2018-02-03 15:33 | Emergency (ER) | payer MEDICARE, MEDICAID ==
[~2018-02-03 15:33] MED LIST changes: +BENZ100 PO; +CEFU1TAB20 PO; -METR-1 PO; -OSEL75 PO
[2018-02-03 15:44] VITALS: BP 152/84; PULSE 100; RESP 27; TEMP 97.9; O2SAT 99
[2018-02-03] MEDS ORDERED: methylPREDNISolone SOD SUCC 125 MG/2 ML VIAL IV PUSH ONE (16:15)
[2018-02-03] MEDS ORDERED: SODIUM CHLORIDE 0.9% FLUSH 10 ML FLUSH IVF PRN (16:15)
[2018-02-03] MEDS ORDERED: MAGNESIUM SULFATE 1 GM PREMIX 100 ML IV SCH (16:15)
[2018-02-03] MEDS ORDERED: SODIUM CHLOR 0.9% 1000 ML INJ 1,000 ML IV ONE (16:15)
[2018-02-03] MEDS: RESP: ALBUTEROL 2.5 MG/IPRATROPIUM 0.5 MG NEB (SCH) INH ×2 (16:23→16:24)
--- NOTE | 2018-02-03 16:23 | RADRPT ---
EXAM DATE/TIME: 02/03/2018 16:07 [facility] COMPARISON: CHEST SINGLE AP, October 05, 2017, 20:05. CHEST PA & LAT, January 23, 2018, 13:28. CHEST SINGLE AP, A pril 2017, 17:51. INDICATIONS : Shortness of breath. MEDICAL HISTORY : Stroke. Hypertension Asthma SURGICAL HISTORY : Fusion, lumbar. ENCOUNTER: Initial ACUITY: 1 day PAIN SCORE: 0/10 LOCATION: Bilateral chest FINDINGS: A single view of the chest demonstrates the lungs to be symmetrically aerated without evidence of mas s, infiltrate or effusion. The cardiomediastinal contours are unremarkable. Osseous structures are intact. CONCLUSION: No acute disease. Zack Valencia MD on February 03, 2018 at 16:19 Board Certified Radiologist. This report was verified electronically.
[2018-02-03 16:27] VITALS: O2SAT 96
[2018-02-03 16:38] LABS: AUTOMATED NEUTROPHIL # 4.6 TH/MM3 (1.8-7.7); BASOPHIL % 0.4 % (0.0-2.0); EOSINOPHIL % 0.6 % (0.0-4.0); HEMATOCRIT 39.7 % (39.0-51.0); HEMOGLOBIN 13.2 GM/DL (13.0-17.0); LYMPH % 18.4 % (9.0-44.0); LYMPHOCYTE # 1.2 TH/MM3 (1.0-4.8); MEAN CELL VOLUME 87.6 FL (80.0-100.0); MEAN CORPUSCULAR HEMOGLOBIN 29.1 PG (27.0-34.0); MEAN CORPUSCULAR HGB CONC 33.2 % (32.0-36.0); MEAN PLATELET VOLUME 9.2 FL (7.0-11.0); MONO % 9.9 % (0.0-8.0); MONOCYTE # 0.6 TH/MM3 (0-0.9); NEUT % 70.7 % (16.0-70.0); PLATELET COUNT 219 TH/MM3 (150-450); RED BLOOD COUNT 4.53 MIL/MM3 (4.50-5.90); RED CELL DISTRIBUTION WIDTH 13.9 % (11.6-17.2); WHITE BLOOD COUNT 6.5 TH/MM3 (4.0-11.0)
[2018-02-03 16:52] LABS: ALBUMIN 3.5 GM/DL (3.4-5.0); ALT (GPT) 22 U/L (12-78); AST (GOT) 15 U/L (15-37); BICARBONATE 28.1 MEQ/L (21.0-32.0); BLOOD UREA NITROGEN 18 MG/DL (7-18); CALCIUM 8.6 MG/DL (8.5-10.1); CHLORIDE 108 MEQ/L (98-107); CREATININE 1.21 MG/DL (0.60-1.30); GLOMERULAR FILTRATION RATE 65 ML/MIN (>89); GLUCOSE,RANDOM 108 MG/DL (74-106); SODIUM (NA) 143 MEQ/L (136-145)
[2018-02-03 16:55] LABS: ALKALINE PHOSPHATASE 42 U/L (45-117); TOTAL BILIRUBIN ADULT 0.2 MG/DL (0.2-1.0)
--- NOTE | 2018-02-03 17:05 | PD ---
HPI Chief Complaint: Respiratory Symptoms Time Seen by Provider: 15:56 Travel History International Travel<30 days: No Contact w/Intl Traveler<30days: No Traveled to known affect area: No History of Present Illness HPI Patient is a 47-year-old male with history of asthma who presents the emergency room with complaints of shortness of breath and wheezing. Patient reports that this morning around 7 AM, he began to feel short of breath and began to wheeze. Patient reports that he used his albuterol treatment with no relief of symptoms. Patient reports that he was recently hospitalized for asthma exacerbation a few weeks ago, patient denies any cough, denies any fevers or chills. Patient with no other complaints at this time. PFSH Past Medical History Arthritis: No Asthma: Yes Blood Disorders: No Bipolar Disorder: Yes Anxiety: Yes Depression: Yes (bipolar) Heart Rhythm Problems: No Cancer: No Cardiovascular Problems: Yes High Cholesterol: Yes Chemotherapy: No Chest Pain: Yes Congestive Heart Failure: No COPD: No Cerebrovascular Accident: Yes (TIA) Developmental Delay: Yes Diabetes: No Diminished Hearing: No Endocrine: No Gastrointestinal Disorders: No Genitourinary: Yes (RETENTION) Headaches: Yes Hypertension: Yes Immune Disorder: No Implanted Vascular Access Dvce: Yes Insomnia: Yes Kidney Stones: No Musculoskeletal: Yes (arthritis ) Neurologic: Yes Psychiatric: Yes (anxiety, depression, schizophrenia) Reproductive: No Respiratory: Yes (ASTHMA) Integumentary: Yes (DERMATITIS, PRURITIS) Immunizations Current: Yes Migraines: Yes Radiation Therapy: No Renal Failure: No Schizophrenia: Yes Seizures: Yes Sleep Apnea: No Past Surgical History Abdominal Surgery: No AICD: No Arteriovenous Shunt: No Body Medical Devices: BACK RODS AND SCREWS Cardiac Surgery: No Ear Surgery: No Endocrine Surgery: No Eye Surgery: No Genitourinary Surgery: No Gynecologic Surgery: No Insulin Pump: No Joint Replacement: No Oral Surgery: No Pacemaker: No Thoracic Surgery: No Other Surgery: Yes Social History Alcohol Use: No Tobacco Use: No Substance Use: No Allergies-Medications (Allergen,Severity, Reaction): Coded Allergies: melon (Verified Allergy, Intermediate, Hives, 02/03/18) tomato (Verified Allergy, Intermediate, Hives, 02/03/18) watermelon (Verified Allergy, Intermediate, Hives, 02/03/18) Reported Meds & Prescriptions Reported Meds & Active Scripts Active Prednisone 20 Mg Tab 20 Mg PO DAILY 5 Days Tessalon Perles (Benzonatate) 100 Mg Cap 200 Mg PO TID PRN Cefuroxime (Cefuroxime Axetil) 500 Mg Tab 500 Mg PO Q12H Protonix (Pantoprazole Sodium) 20 Mg Tab 20 Mg PO DAILY Ambien (Zolpidem Tartrate) 10 Mg Tab 10 Mg PO HS PRN 30 Days Fluoxetine (Fluoxetine HCl) 20 Mg Capsule 20 Mg PO DAILY Depakote ER (Divalproex Sodium) 250 Mg Floridalma 750 Mg PO BID Haloperidol 0.5 Mg Tab 0.5 Mg PO TID Flomax (Tamsulosin HCl) 0.4 Mg Cap 0.4 Mg PO BID Fenofibrate 145 Mg Tab 145 Mg PO DAILY Symbicort Inh (Budesonide/Formoterol Fumarate) 160-4.5 Mcg/Act Aero 2 Puff INH BID Reported Lorazepam 0.5 Mg Tab 0.5 Mg PO BID PRN Lactulose 10 Gram/15 Ml (15 Ml) Solution QID Gabapentin 800 Mg Tab 800 Mg PO BID Breo Ellipta Inh (Fluticasone/Vilanterol) 100-25 Mcg/Act Inh 1 Puff INH DAILY Use daily at the same time. Proair Hfa 8.5 GM Inh (Albuterol Sulfate) 90 Mcg/Act Aer 2 Puff INH Q4-6H PRN 108 mcg/actuation Abilify (Aripiprazole) 20 Mg Tab 20 Mg PO HS Review of Systems General / Constitutional: No: Fever Eyes: No: Visual changes HENT: No: Headaches Cardiovascular: No: Chest Pain or Discomfort Respiratory: Positive: Shortness of Breath, Wheezing, No: Cough Gastrointestinal: No: Abdominal Pain Genitourinary: No: Dysuria Musculoskeletal: No: Pain Skin: No Rash Neurologic: No: Weakness Psychiatric: No: Depression Endocrine: No: Polydipsia Hematologic/Lymphatic: No: Easy Bruising Physical Exam Narrative GENERAL: Moderate distress SKIN: Focused skin assessment warm/dry. HEAD: Atraumatic. Normocephalic. EYES: Pupils equal and round. No scleral icterus. No injection or drainage. ENT: No nasal bleeding or discharge. Mucous membranes pink and moist. NECK: Trachea midline. No JVD. CARDIOVASCULAR: Regular rate and rhythm. No murmur appreciated. RESPIRATORY: No accessory muscle use. Patient with scattered wheezing diffusely GASTROINTESTINAL: Abdomen soft, non-tender, nondistended. Hepatic and splenic margins not palpable. MUSCULOSKELETAL: No obvious deformities. No clubbing. No cyanosis. No edema. NEUROLOGICAL: Awake and alert. No obvious cranial nerve deficits. Motor grossly within normal limits. Normal speech. PSYCHIATRIC: Appropriate mood and affect; insight and judgment normal. Data Data Last Documented VS Vital Signs Date Time Temp Pulse Resp B/P (MAP) Pulse Ox O2 Delivery O2 Flow Rate FiO2 02/03/18 16:27 96 Nasal Cannula 2.00 02/03/18 15:44 97.9 100 27 152/84 (106) Orders Orders Arterial Blood Gas (Abg) (02/03/18 16:04) Complete Blood Count With Diff (02/03/18 16:04) Comprehensive Metabolic Panel (02/03/18 16:04) Chest, Single Ap (02/03/18 16:04) Ecg Monitoring (02/03/18 16:04) Iv Access Insert/Monitor (02/03/18 16:04) Oximetry (02/03/18 16:04) Oxygen Administration (02/03/18 16:04) Methylprednisolone So Succ Inj (Solumedr (02/03/18 16:15) Albuterol-Ipratropium Neb (Duoneb Neb) (02/03/18 16:15) Sodium Chloride 0.9% Flush (Ns Flush) (02/03/18 16:15) Magnesium Sulfate 1 Gm Premix (Magnesium (02/03/18 16:15) Sodium Chlor 0.9% 1000 Ml Inj (Ns 1000 M (02/03/18 16:15) Albuterol Neb (Albuterol Neb) (02/03/18 17:15) Labs Laboratory Tests Test 02/03/18 16:15 02/03/18 16:35 White Blood Count 6.5 TH/MM3 Red Blood Count 4.53 MIL/MM3 Hemoglobin 13.2 GM/DL Hematocrit 39.7 % Mean Corpuscular Volume 87.6 FL Mean Corpuscular Hemoglobin 29.1 PG Mean Corpuscular Hemoglobin Concent 33.2 % Red Cell Distribution Width 13.9 % Platelet Count 219 TH/MM3 Mean Platelet Volume 9.2 FL Neutrophils (%) (Auto) 70.7 % Lymphocytes (%) (Auto) 18.4 % Monocytes (%) (Auto) 9.9 % Eosinophils (%) (Auto) 0.6 % Basophils (%) (Auto) 0.4 % Neutrophils # (Auto) 4.6 TH/MM3 Lymphocytes # (Auto) 1.2 TH/MM3 Monocytes # (Auto) 0.6 TH/MM3 Eosinophils # (Auto) 0.0 TH/MM3 Basophils # (Auto) 0.0 TH/MM3 CBC Comment DIFF FINAL Differential Comment Blood Urea Nitrogen 18 MG/DL Creatinine 1.21 MG/DL Random Glucose 108 MG/DL Total Protein 7.0 GM/DL Albumin 3.5 GM/DL Calcium Level 8.6 MG/DL Alkaline Phosphatase 42 U/L Aspartate Amino Transf (AST/SGOT) 15 U/L Alanine Aminotransferase (ALT/SGPT) 22 U/L Total Bilirubin 0.2 MG/DL Sodium Level 143 MEQ/L Potassium Level 3.9 MEQ/L Chloride Level 108 MEQ/L Carbon Dioxide Level 28.1 MEQ/L Anion Gap 7 MEQ/L Estimat Glomerular Filtration Rate 65 ML/MIN Blood Gas Puncture Site RT RADIAL Blood Gas Patient Temperature 98.6 Blood Gas HCO3 27 mmol/L Blood Gas Base Excess 3.0 mmol/L Blood Gas Oxygen Saturation 97 % Arterial Blood pH 7.42 Arterial Blood Partial Pressure CO2 43 mmHg Arterial Blood Partial Pressure O2 107 mmHG Arterial Blood Oxygen Content 18.0 Vol % Arterial Blood Carboxyhemoglobin 0.6 % Arterial Blood Methemoglobin 0.5 % Blood Gas Hemoglobin 13.1 G/DL Oxygen Delivery Device NASAL CANNULA Blood Gas Liter Flow 2 L/M MDM Medical Decision Making Medical Screen Exam Complete: Yes Emergency Medical Condition: Yes Medical Record Reviewed: Yes Interpretation(s) Vital Signs Date Time Temp Pulse Resp B/P (MAP) Pulse Ox O2 Delivery O2 Flow Rate FiO2 02/03/18 16:27 96 Nasal Cannula 2.00 02/03/18 16:27 96 2.00 02/03/18 16:27 96 2.00 02/03/18 15:44 97.9 100 27 152/84 (106) 99 Differential Diagnosis Asthma exacerbation, pneumonia Narrative Course During the course of the patients emergency department visit, the patients history, examination, and differential diagnosis were reviewed with the patient. The patient was placed on a telemetry monitor with oximetry and frequent blood pressure monitoring. The patient had an IV access obtained and blood work sent for analysis. The patient was initially provided IV Solu-Medrol, DuoNeb's as well as IV magnesium The patients laboratory studies were reviewed and remarkable for CBC & BMP Diagram 02/03/18 16:15 Total Protein 7.0, Albumin 3.5, Calcium Level 8.6, Alkaline Phosphatase 42 L, Aspartate Amino Transf (AST/SGOT) 15, Alanine Aminotransferase (ALT/SGPT) 22, Total Bilirubin 0.2 Radiology studies were reviewed and remarkable for Last Impressions Chest X-Ray 02/03/18 1604 Signed Impressions: Service Date/Time: Saturday, February 03, 2018 16:07 - CONCLUSION: No acute disease. Zack Valencia MD Patient reevaluated, patient reports that he is feeling much better. Plan to discharge patient to home with outpatient follow-up. Diagnosis Primary Impression: Asthma exacerbation Qualified Codes: J45.901 - Unspecified asthma with (acute) exacerbation Patient Instructions: General Instructions Additional Instructions: Please follow up with your primary care doctor in 2-3 days Return to the ER if symptoms worsen or progress Return to the ER as needed Med/Other Pt SpecificInfo: Prescription(s) given Scripts Albuterol 8.5 GM Inh (Proair Hfa 8.5 GM Inh) 90 Mcg/Act Aer 2 PUFF INH Q4-6H Y for SHORTNESS OF BREATH, #1 INHALER 0 Refills 108 mcg/actuation Prov: Raquel Petit DO 02/03/18 Prednisone (Prednisone) 20 Mg Tab 20 MG PO BID for 5 Days, #10 TAB 0 Refills Prov: Raquel Petit DO 02/03/18 Disposition: 01 DISCHARGE HOME Condition: Stable Raquel Petit DO February 03, 2018 17:05
[2018-02-03] MEDS ORDERED: RESP: ALBUTEROL 2.5 MG/3 ML NEB (SCH) INH ONE (17:15)
[2018-02-03] MEDS ORDERED: ALBUAER3 INH (18:22)
[2018-02-03] MEDS ORDERED: PRED20 PO (18:22)
== END 2018-02-03 19:06 | disposition home or self-care (01) ==
LOC: NEPC 15:33
DX: J45.901 Unspecified asthma with (acute) exacerbation (principal); F20.9 Schizophrenia, unspecified
CPT/HCPCS: 36600; 71045; 80053; 82805; 85025; 94640; 94664; 96365; 96375; 99284; J2930; J3475; J7030; J7613